=== PATIENT | female | born 1980 | race Caucasian/White ===

== ENCOUNTER → 2017-03-30 | Outpatient (CLI) | payer OTHER ==
[~2017-03-30] MED LIST: ALBUAER19 INH; CEPH500C PO; CLON0.5T3 PO; FLUO20CA35 PO; FLUO40CA8 PO; LEVE500T13 PO; LURA1TAB; ONDA8TAB13 SL; ONDA8TAB6 PO; PROM1SUP19 PR
== END | disposition home or self-care (01) ==
LOC: C.PAPS 14:55
PROVIDERS: ATTEND Internal Medicine
DX: Z34.81 Encounter for supervision of other normal pregnancy, first trimester (principal); R87.610 Atypical squamous cells of undetermined significance on cytologic smear of cervix (ASC-US)

== ENCOUNTER → 2017-03-30 | Outpatient (CLI) | payer OTHER ==
[2017-04-03 00:44] LABS: CHLAMYDIA TRACH RNA*** NOT DETECTED (NOT DETECTED); GC (NEIS GONORRHOEAE)RNA** NOT DETECTED (NOT DETECTED)
== END | disposition home or self-care (01) ==
LOC: C.LABSPEC 14:26
PROVIDERS: ATTEND Obstetrics & Gynecology
DX: Z34.81 Encounter for supervision of other normal pregnancy, first trimester (principal)

== ENCOUNTER → 2017-03-31 | Outpatient (CLI) | payer OTHER | END | disposition home or self-care (01) | LOC: C.LAB 16:14 | PROVIDERS: ATTEND Obstetrics & Gynecology | DX: O09.511 Supervision of elderly primigravida, first trimester (principal) ==

== ENCOUNTER 2017-05-14 17:30 | Emergency (ER) | payer OTHER ==
[~2017-05-14] VITALS: Ht 165.1 cm; Wt 92.4 kg
[~2017-05-14 17:30] MED LIST changes: -CEPH500C PO; -LURA1TAB; -ONDA8TAB13 SL; -ONDA8TAB6 PO; -PROM1SUP19 PR
[2017-05-14 17:34] VITALS: Ht 165.1 cm; Wt 92.4 kg
[2017-05-14] MEDS ORDERED: ONDANSETRON INJ 2 MG/ML 2 ML VIAL IV PRN (18:00)
[2017-05-14] MEDS ORDERED: SODIUM CHLORIDE 0.9% 1000ML 1,000 ML IV ONE ×3 (18:00→22:15)
--- NOTE | 2017-05-14 18:00 | EMERGENCY ROOM VISIT NOTE ---
History First contact with patient: 17:38 Chief Complaint: VOMITING Stated Complaint: 12 WEEKS ,VOMITTING Nursing Triage Summary: Pt is 12 weeks . Pt stated that over the last week she has been vomiting every time she eats. She is not able to keep even water down. Pt has also been constipated for the last 3 days. Pt denies any abdominal pain, fever , or diarrhea. Pt abdomen non tender and bowel sounds + all 4 quadrants. History of Present Illness The patient is a 36 year old female who presents to the Emergency Room with complaints of uncontrolled vomiting that has been ongoing throughout the duration of her . The patient is 12 weeks . She is . She has been receiving care. She had a normal 8 week ultrasound. The patient reports a 15 pound weight loss in the last 4 weeks. She is unable to keep even liquids down. She follows with Dr. Vogel. He prescribed Zofran for her, which does not seem to help. She ran out of her Zofran 2 days ago. She denies any significant abdominal pain. She does note that she has not had a bowel movement in 2 days. She denies any fever or chills. Review of Systems 10 system review performed and negative unless noted in HPI or below Past Medical/Surgical History Medical Problems: (1) Benign hypertension (2) Diabetes mellitus Family History Diabetes mellitus Hypertension Seizures Social History Smoking Status: Former Smoker Alcohol Use: occasionally Housing Status: lives with significant other Current/Historical Medications Scheduled Cephalexin Monohydrate (Keflex), 500 MG PO QID Fluoxetine (Prozac), 40 MG PO DAILY Fluoxetine (Prozac), 20 MG PO DAILY Ondansetron Odt (Zofran Odt), 8 MG SL Q8 Scheduled PRN Ondansetron Hcl (Zofran), 8 MG PO for Nausea Promethazine (Phenergan Suppository), 25 MG AR Q6H PRN for Nausea Miscellaneous Medications Lurasidone Hcl (Latuda) Physical Exam Vital Signs Date Time Temp Pulse Resp B/P (MAP) Pulse Ox O2 Delivery O2 Flow Rate FiO2 05/14/17 22:54 68 18 102/61 97 05/14/17 21:35 61 122/69 111/69 97/65 05/14/17 20:25 36.8 57 18 110/73 98 Room Air 05/14/17 18:54 63 18 108/68 100 Room Air 05/14/17 17:34 37.4 105 18 135/85 94 Room Air Physical Exam VITALS: Vitals are noted on the nurse's note and reviewed by myself. Vital signs stable. GENERAL: 36-year-old female, in moderate discomfort, SKIN: The skin was without rashes, erythema, edema, or bruising. HEAD: Normocephalic atraumatic. MOUTH: Mucous membranes slightly dry. NECK: No JVD. HEART: Regular rate and rhythm without murmurs gallops or rubs. LUNGS: Clear to auscultation bilaterally without wheezes, rales or rhonchi. No accessory muscle use. ABDOMEN: Bowel sounds present, but hypoactive. Soft, nontender, without organomegaly. No guarding or rebound tenderness. heart beat approximately 140 bpm MUSCULOSKELETAL: No muscle atrophy, erythema, or edema noted. Strength 5/5 throughout. NEURO: Patient was alert and oriented to person place and time. Normal sensation to touch. No focal neurological deficits. Medical Decision & Procedures Laboratory Results 05/14/17 18:06 Red Blood Count 4.41, Mean Corpuscular Volume 90.5, Mean Corpuscular Hemoglobin 32.9, Mean Corpuscular Hemoglobin Concent 36.3, Mean Platelet Volume 9.5, Neutrophils (%) (Auto) 71.7, Lymphocytes (%) (Auto) 22.2, Monocytes (%) (Auto) 4.9, Eosinophils (%) (Auto) 0.8, Basophils (%) (Auto) 0.1, Neutrophils # (Auto) 6.58, Lymphocytes # (Auto) 2.04, Monocytes # (Auto) 0.45, Eosinophils # (Auto) 0.07, Basophils # (Auto) 0.01 05/14/17 18:06 Test 05/14/17 18:06 05/14/17 19:37 White Blood Count 9.18 K/uL (4.8-10.8) Red Blood Count 4.41 M/uL (4.2-5.4) Hemoglobin 14.5 g/dL (12.0-16.0) Hematocrit 39.9 % (37-47) Mean Corpuscular Volume 90.5 fL (80-100) Mean Corpuscular Hemoglobin 32.9 pg (25-34) Mean Corpuscular Hemoglobin Concent 36.3 g/dl (32-36) Platelet Count 223 K/uL (130-400) Mean Platelet Volume 9.5 fL (7.4-10.4) Neutrophils (%) (Auto) 71.7 % Lymphocytes (%) (Auto) 22.2 % Monocytes (%) (Auto) 4.9 % Eosinophils (%) (Auto) 0.8 % Basophils (%) (Auto) 0.1 % Neutrophils # (Auto) 6.58 K/uL (1.4-6.5) Lymphocytes # (Auto) 2.04 K/uL (1.2-3.4) Monocytes # (Auto) 0.45 K/uL (0.11-0.59) Eosinophils # (Auto) 0.07 K/uL (0-0.5) Basophils # (Auto) 0.01 K/uL (0-0.2) RDW Standard Deviation 38.2 fL (36.4-46.3) RDW Coefficient of Variation 11.6 % (11.5-14.5) Immature Granulocyte % (Auto) 0.3 % Immature Granulocyte # (Auto) 0.03 K/uL (0.00-0.02) Anion Gap 6.0 mmol/L (3-11) Est Creatinine Clear Calc Drug Dose 155.8 ml/min Estimated GFR () 137.9 Estimated GFR (Non- 119.0 BUN/Creatinine Ratio 12.7 (10-20) Calcium Level 8.8 mg/dl (8.5-10.1) Magnesium Level 1.9 mg/dl (1.8-2.4) Total Bilirubin 0.3 mg/dl (0.2-1) Aspartate Amino Transf (AST/SGOT) 9 U/L (15-37) Alanine Aminotransferase (ALT/SGPT) 12 U/L (12-78) Alkaline Phosphatase 81 U/L (45-117) Total Protein 7.1 gm/dl (6.4-8.2) Albumin 3.4 gm/dl (3.4-5.0) Globulin 3.7 gm/dl (2.5-4.0) Albumin/Globulin Ratio 0.9 (0.9-2) Urine Color DK YELLOW Urine Appearance CLOUDY (CLEAR) Urine pH 6.0 (4.5-7.5) Urine Specific [place] 1.032 (1.000-1.030) Urine Protein 1+ (NEG) Urine Glucose (UA) TRACE (NEG) Urine Ketones 3+ (NEG) Urine Occult Blood NEG (NEG) Urine Nitrite NEG (NEG) Urine Bilirubin NEG (NEG) Urine Urobilinogen POS (NEG) Urine Leukocyte Esterase MODERATE (NEG) Urine WBC (Auto) >30 /hpf (0-5) Urine RBC (Auto) 5-10 /hpf (0-4) Urine Hyaline Casts (Auto) 5-10 /lpf (0-5) Urine Epithelial Cells (Auto) >30 /lpf (0-5) Urine Bacteria (Auto) NEG (NEG) Urine Pathogenic Casts /lpf (0) Medications Administered Medications (Trade) Dose Ordered Sig/Marcelino Route Start Time Stop Time Status Last Admin Dose Admin Sodium Chloride 1,000 ml @ 999 mls/hr Q1H1M ONCE IV 05/14/17 18:00 05/14/17 19:00 DC 05/14/17 18:14 999 MLS/HR Sodium Chloride 1,000 ml @ 999 mls/hr Q1H1M ONCE IV 05/14/17 18:00 05/14/17 19:00 DC 05/14/17 18:19 999 MLS/HR Ondansetron HCl (Zofran Inj) 4 mg Q2H PRN IV 05/14/17 18:00 05/14/17 23:41 DC 05/14/17 18:14 4 MG Ondansetron HCl (Zofran Inj) 4 mg NOW STAT IV 05/14/17 19:24 05/14/17 19:25 DC 05/14/17 19:33 4 MG Ceftriaxone Sodium (Rocephin Inj) 1 gm NOW STAT IV 05/14/17 20:25 05/14/17 20:27 DC 05/14/17 20:45 1 GM Promethazine HCl (Phenergan Supp) 25 mg ONE STAT AR 05/14/17 20:34 05/14/17 20:35 DC 05/14/17 20:45 25 MG Promethazine HCl (Phenergan Supp) 25 mg ONE STAT AR 05/14/17 21:59 05/14/17 22:00 DC 05/14/17 21:59 25 MG ED Course Patient was seen and examined Vital signs including blood pressure were reviewed medications list was verified with patient Labs were obtained, and a saline lock was established The patient was given Zofran 4 mg IV. She was hydrated with 2 L of normal saline. Upon reevaluation, the patient was still nauseated. She was given an additional dose of Zofran 4 mg IV. She did not have very good relief from this. The case was discussed with my supervising physician, and also Dr. Ho from OB. He suggested trying Phenergan suppositories. This was ordered. Upon reevaluation, the patient was feeling about the same. She was given macy roula and crackers. She was able to eat a pack a crackers. Orthostatic vital signs were checked and positive. She was hydrated with an additional liter of saline The orthostatic vital signs were repeated. They were improved. The patient was given a home pack of Phenergan suppositories and Zofran ODT She was comfortable being discharged home I reviewed discharge instructions the patient. They voiced understanding and had no further questions. Medical Decision Differential diagnosis: Hyperemesis gravidarum, SBO, pancreatitis, choledocholithiasis, viral GI illness This patient is a 36-year-old female that presents the emergency department with uncontrolled vomiting. She experienced similar symptoms with the first . I had a low suspicion of other etiologies such as SBO or infection. The patient had some symptomatic relief in the emergency department. She was still nauseated, however she was able to tolerate crackers. The case was discussed with the on-call OB physician, Dr. Ho. He suggested Phenergan suppositories and close follow-up. The patient was comfortable with this plan. She was initially orthostatic. She was given an additional liter of fluids, and this improved. She was discharged home with a home pack of antiemetics. She will call the OB doctor in the morning for follow-up. Of note, the patient also has a urinary tract infection. She does not have any signs of pyelonephritis. She was given 1 dose of Rocephin IV. She was given a prescription of Keflex. This chart was completed in part utilizing [employer] Voice Recognition software. Attempts were made to minimize the grammatical errors, random word insertions, pronoun errors and incomplete sentences. Any formal questions or concerns about the content, text or information contained within the body of this dictation should be directly addressed to the provider for clarification. Medication Reconcilliation Current Medication List: was personally reviewed by me Blood Pressure Screening Patient's blood pressure: Elevated blood pressure Blood pressure disposition: Elevated BP felt to be situational Impression Primary Impression: Hyperemesis gravidarum Additional Impression: UTI (urinary tract infection) Departure Information Dispostion Home / Self-Care Condition GOOD Prescriptions Ondansetron Odt (ZOFRAN ODT) 8 Mg Tab 8 MG SL Q8, #20 TAB Prov: Twila Willoughby PA-C 05/14/17 Cephalexin Monohydrate (Keflex) 500 Mg Cap 500 MG PO QID for 7 Days, #28 CAP Prov: Twila Willoughby PA-C 05/14/17 Promethazine (Phenergan Suppository) 25 Mg Supp 25 MG AR Q6H Y for Nausea, #20 SUPP Prov: Twila Willoughby PA-C 05/14/17 Referrals No Doctor, Assigned (PCP) Horacio Vogel M.D. Patient Instructions My [facility] Additional Instructions You were evaluated in the emergency department for vomiting. It also appears that you have a urinary tract infection. Please do Phenergan suppositories every 6 hours as needed for nausea. Please make sure that you take the capsule off of the suppository. Please finish the entire course of antibiotics. Please call your OB doctor in the morning for a follow-up appointment. If your symptoms worsen please return to the emergency department. Problem Qualifiers
[2017-05-14] MEDS ORDERED: LURA1TAB (18:12)
[2017-05-14] MEDS ORDERED: ONDA8TAB6 PO (18:12)
[2017-05-14 18:22] LABS: BASO % 0.1 %; BASO ABS # 0.01 K/uL (0-0.2); COMPLETE YES; EOS % 0.8 %; HEMATOCRIT 39.9 % (37-47); IG% 0.3 %; LYMPH % 22.2 %; LYMPH ABS # 2.04 K/uL (1.2-3.4); MEAN CELL VOLUME 90.5 fL (80-100); MEAN CORPUSCULAR HEMOGLOBIN 32.9 pg (25-34); MEAN CORPUSCULAR HGB CONC 36.3 g/dl (32-36); MEAN PLATELET VOLUME 9.5 fL (7.4-10.4); MONO % 4.9 %; NEUT % 71.7 %; PLATELET COUNT 223 K/uL (130-400); RED BLOOD COUNT 4.41 M/uL (4.2-5.4); WHITE BLOOD COUNT 9.18 K/uL (4.8-10.8)
[2017-05-14 18:33] LABS: BUN/CREATININE RATIO 12.7 (10-20); CALCIUM 8.8 mg/dl (8.5-10.1); CREATININE 0.55 mg/dl (0.60-1.20); MAGNESIUM 1.9 mg/dl (1.8-2.4); POTASSIUM 3.7 mmol/L (3.5-5.1)
[2017-05-14 18:36] LABS: ALB/GLOB RATIO 0.9 (0.9-2)
[2017-05-14] MEDS ORDERED: ONDANSETRON INJ 2 MG/ML 2 ML VIAL IV STA (19:24)
[2017-05-14 19:46] LABS: URINE APPEARANCE CLOUDY (CLEAR); URINE COLOR DK YELLOW; URINE EPITHELIAL CELL AUTO >30 /lpf (0-5); URINE NITRITE NEG (NEG); URINE SPECIFIC GRAVITY 1.032 (1.000-1.030); UROBILINOGEN POS (NEG)
[2017-05-14 19:54] LABS: MANUAL MICROSCOPIC REQUIRED? NO; REVIEW REQ? YES
[2017-05-14 19:55] LABS: URINE BILIRUBIN NEG (NEG)
[2017-05-14 20:25] VITALS: TEMP 36.8
[2017-05-14] MEDS ORDERED: CEFTRIAXONE SOD INJ 1 GM ADDVIAL IV STA (20:25)
[2017-05-14] MEDS ORDERED: PROMETHAZINE HCL 25 MG SUPP PR STA ×2 (20:34→21:59)
[2017-05-14] MEDS ORDERED: PROMETHAZINE HCL 25 MG SUPP PR ONE (21:59)
[2017-05-14] MEDS ORDERED: PROM1SUP19 PR (22:01)
[2017-05-14] MEDS ORDERED: CEPH500C PO (22:01)
[2017-05-14] MEDS ORDERED: ONDA8TAB13 SL (22:31)
[2017-05-14] MEDS ORDERED: ONDANSETRON HOME PACK 4MG OD TAB PO ONE (22:45)
[2017-05-14 22:54] VITALS: BP 102/61; PULSE 68; O2SAT 97
--- NOTE | 2017-05-14 22:54 | EMERGENCY ROOM VISIT NOTE ---
ED Visit Note First contact with patient: 17:38 The patient was seen and examined with Twila Willoughby PA-C. I agree with the history, physical and findings. Please see the note for disposition and details. The patient was hydrated. She was given Zofran and Phenergan. OB/ TRIMMING CASER was consulted and recommended Phenergan suppositories. Recommended close follow-up in the office. The patient will contact Dr. Vogel tomorrow. If she worsens in any way or cannot tolerate oral intake she will be back for reevaluation. I gave my usual and customary discussion regarding this issue.
== END 2017-05-14 22:57 | disposition home or self-care (01) ==
LOC: C.EDB 17:33 → C.EDC 22:57
DX: O21.0 Mild hyperemesis gravidarum (principal); O23.41 Unspecified infection of urinary tract in pregnancy, first trimester; O24.111 Pre-existing type 2 diabetes mellitus, in pregnancy, first trimester; E11.9 Type 2 diabetes mellitus without complications; O10.011 Pre-existing essential hypertension complicating pregnancy, first trimester; Z3A.12 12 weeks gestation of pregnancy; Z87.891 Personal history of nicotine dependence; Z83.3 Family history of diabetes mellitus; Z82.49 Family history of ischemic heart disease and other diseases of the circulatory system; Z82.0 Family history of epilepsy and other diseases of the nervous system

== ENCOUNTER → 2017-07-21 | Outpatient (CLI) | payer OTHER ==
[~2017-07-21] MED LIST changes: -ALBUAER19 INH; -CLON0.5T3 PO; -LEVE500T13 PO; +LURA1TAB; +ONDA8TAB6 PO; +PROM1SUP19 PR
[2017-07-21 10:15] LABS: HEMATOCRIT 36.1 % (37-47); MEAN CELL VOLUME 92.1 fL (80-100); MEAN CORPUSCULAR HEMOGLOBIN 32.1 pg (25-34); MEAN CORPUSCULAR HGB CONC 34.9 g/dl (32-36); MEAN PLATELET VOLUME 9.5 fL (7.4-10.4); PLATELET COUNT 201 K/uL (130-400); RED BLOOD COUNT 3.92 M/uL (4.2-5.4); WHITE BLOOD COUNT 7.56 K/uL (4.8-10.8)
[2017-07-21 11:20] LABS: GTGD 50 Grams
== END | disposition home or self-care (01) ==
LOC: C.LAB 08:22
PROVIDERS: ATTEND Obstetrics & Gynecology
DX: Z34.82 Encounter for supervision of other normal pregnancy, second trimester (principal)

== ENCOUNTER → 2017-08-03 | Outpatient (CLI) | payer OTHER | END | disposition home or self-care (01) | LOC: C.LAB 08:04 | PROVIDERS: ATTEND Obstetrics & Gynecology | DX: O99.810 Abnormal glucose complicating pregnancy (principal) ==

== ENCOUNTER 2017-09-12 18:11 | Emergency (ER) | payer OTHER ==
[~2017-09-12] VITALS: Ht 165.1 cm; Wt 101.8 kg
[2017-09-12 18:21] VITALS: TEMP 37.1; Ht 165.1 cm; Wt 101.8 kg
[2017-09-12] MEDS ORDERED: SODIUM CHLORIDE 0.9% 1000ML 2,000 ML IV STA (18:32)
[2017-09-12] MEDS ORDERED: ONDANSETRON INJ 2 MG/ML 2 ML VIAL IV STA (18:32)
[2017-09-12] MEDS ORDERED: ACETAMINOPHEN 500 MG TAB PO STA (18:37)
[2017-09-12 18:45] VITALS: O2SAT 100
--- NOTE | 2017-09-12 18:45 | EMERGENCY ROOM VISIT NOTE ---
History Report prepared by Marvin: Damir Caceres Under the Supervision of: Dr. Jeffrey Melgar M.D. First contact with patient: 18:31 Chief Complaint: FLU LIKE SX Stated Complaint: WEAKNESS,DEHYDRATION,VOMITING,HEADACHE History of Present Illness The patient is a 37 year old female who presents to the Emergency Room with complaints of worsening flu-like symptoms for the past 4 days. Patient has associated symptoms of a cough, chest pains, vomiting, sore throat, fever, and a headache. Patient adds that she has not eaten for the past 4 days since she cannot keep anything down. She describes the chest pain as "someone putting a 10 ,000 lb weight on her chest". She states her fever resolved yesterday. Patient denies having a flu shot this year. She denies being around anyone with the flu. Patient adds that she is 7 months . She states this is her 2nd . She adds that she has had no complications with the except for being in the ED a couple months ago for dehydration symptoms. Patient adds that during her 1st she "was sick the whole time". Patient denies any changes in bowel movements or urinary burning/frequency. Source of History: patient Onset: 4 days ago Position: other (Flu-like symptoms) Timing: worsening Associated Symptoms: + fevers, + headache, + sorethroat, + cough, + vomiting Note: Patient has chest pains. Review of Systems See HPI for pertinent positives & negatives. A total of 10 systems reviewed and were otherwise negative. Past Medical & Surgical Medical Problems: (1) Benign hypertension (2) Diabetes mellitus Family History Diabetes mellitus Hypertension Seizures Social History Smoking Status: Never Smoker Alcohol Use: occasionally Housing Status: lives with significant other Current/Historical Medications Scheduled Cephalexin Monohydrate (Keflex), 500 MG PO TID Ondasetron Odt (Zofran Odt), 4 MG SL Q6H Oseltamivir (Tamiflu), 75 MG PO BID Scheduled PRN Doxylamine-Pyridoxine (Diclegis), 1 TAB PO UD PRN for Nausea Allergies Coded Allergies: Latex1 -Allergic Contact Dermititis (Verified Allergy, Unknown, ., 05/14/17 ) Physical Exam Vital Signs Date Time Temp Pulse Resp B/P (MAP) Pulse Ox O2 Delivery O2 Flow Rate FiO2 09/12/17 21:25 80 18 132/78 99 Room Air 09/12/17 18:45 100 Room Air 09/12/17 18:21 37.1 89 18 111/74 97 Room Air Physical Exam GENERAL: Patient is in no acute distress. HEENT: No acute trauma, normocephalic atraumatic, mucous membranes moist, mild nasal congestion, no scleral icterus. No throat erythema or exudate NECK: No stridor, no adenopathy, no meningismus, trachea is midline. LUNGS: Clear to auscultation bilaterally, no wheeze, no rhonchi, breath sounds equal. HEART: Without murmurs gallops or rubs, regular rate and rhythm. ABDOMEN: Soft, nontender, bowel sounds positive, no hernias, no peritonitis, gravid uterus EXTREMITIES: No cyanosis or edema, full range of motion of all the joints without pain or difficulty, no signs for acute trauma. NEUROLOGIC: Oriented x 3, no acute motor or sensory deficits, no focal weakness. SKIN: No rash, no jaundice, no diaphoresis. Medical Decision & Procedures ER Provider Diagnostic Interpretation: Radiology results as stated below per my review and radiologist interpretation: CHEST ONE VIEW PORTABLE CLINICAL HISTORY: EVALUATE ALTERED MENTAL STATUS/WEAKNESS COMPARISON STUDY: 10/26/2015 FINDINGS: The bones soft tissues and hemidiaphragms are normal. The cardiomediastinal silhouette is normal. The lungs are clear. The pulmonary vasculature is normal. IMPRESSION: Negative chest. The above report was generated using voice recognition software. It may contain grammatical, syntax or spelling errors. Electronically signed by: Matthew Washington M.D. 09/12/2017 7:18 PM Laboratory Results 09/12/17 18:55 Red Blood Count 4.07, Mean Corpuscular Volume 93.1, Mean Corpuscular Hemoglobin 32.4, Mean Corpuscular Hemoglobin Concent 34.8, Mean Platelet Volume 9.4, Neutrophils (%) (Auto) 77.2, Lymphocytes (%) (Auto) 12.7, Monocytes (%) (Auto) 9.7, Eosinophils (%) (Auto) 0.0, Basophils (%) (Auto) 0.0, Neutrophils # (Auto) 4.40, Lymphocytes # (Auto) 0.72, Monocytes # (Auto) 0.55, Eosinophils # (Auto) 0.00, Basophils # (Auto) 0.00 09/12/17 18:55 Test 09/12/17 18:55 White Blood Count 5.69 K/uL (4.8-10.8) Red Blood Count 4.07 M/uL (4.2-5.4) Hemoglobin 13.2 g/dL (12.0-16.0) Hematocrit 37.9 % (37-47) Mean Corpuscular Volume 93.1 fL (80-100) Mean Corpuscular Hemoglobin 32.4 pg (25-34) Mean Corpuscular Hemoglobin Concent 34.8 g/dl (32-36) Platelet Count 160 K/uL (130-400) Mean Platelet Volume 9.4 fL (7.4-10.4) Neutrophils (%) (Auto) 77.2 % Lymphocytes (%) (Auto) 12.7 % Monocytes (%) (Auto) 9.7 % Eosinophils (%) (Auto) 0.0 % Basophils (%) (Auto) 0.0 % Neutrophils # (Auto) 4.40 K/uL (1.4-6.5) Lymphocytes # (Auto) 0.72 K/uL (1.2-3.4) Monocytes # (Auto) 0.55 K/uL (0.11-0.59) Eosinophils # (Auto) 0.00 K/uL (0-0.5) Basophils # (Auto) 0.00 K/uL (0-0.2) RDW Standard Deviation 42.7 fL (36.4-46.3) RDW Coefficient of Variation 12.6 % (11.5-14.5) Immature Granulocyte % (Auto) 0.4 % Immature Granulocyte # (Auto) 0.02 K/uL (0.00-0.02) Urine Color YELLOW Urine Appearance CLEAR (CLEAR) Urine pH 6.5 (4.5-7.5) Urine Specific [place] 1.025 (1.000-1.030) Urine Protein 1+ (NEG) Urine Glucose (UA) 2+ (NEG) Urine Ketones 2+ (NEG) Urine Occult Blood NEG (NEG) Urine Nitrite NEG (NEG) Urine Bilirubin NEG (NEG) Urine Urobilinogen NEG (NEG) Urine Leukocyte Esterase SMALL (NEG) Urine WBC (Auto) >30 /hpf (0-5) Urine RBC (Auto) 5-10 /hpf (0-4) Urine Hyaline Casts (Auto) 1-5 /lpf (0-5) Urine Epithelial Cells (Auto) 20-30 /lpf (0-5) Urine Bacteria (Auto) NEG (NEG) Anion Gap 7.0 mmol/L (3-11) Est Creatinine Clear Calc Drug Dose 165.4 ml/min Estimated GFR () 137.8 Estimated GFR (Non- 118.9 BUN/Creatinine Ratio 9.5 (10-20) Calcium Level 8.2 mg/dl (8.5-10.1) Total Bilirubin 0.1 mg/dl (0.2-1) Aspartate Amino Transf (AST/SGOT) 13 U/L (15-37) Alanine Aminotransferase (ALT/SGPT) 17 U/L (12-78) Alkaline Phosphatase 113 U/L (45-117) Troponin I < 0.015 ng/ml (0-0.045) Total Protein 6.7 gm/dl (6.4-8.2) Albumin 2.7 gm/dl (3.4-5.0) Globulin 4.0 gm/dl (2.5-4.0) Albumin/Globulin Ratio 0.7 (0.9-2) Influenza Type A Antigen POS for Influ A (NEG) Influenza Type B Antigen Neg for Influ B (NEG) Laboratory results reviewed by me. Medications Administered Medications (Trade) Dose Ordered Sig/Marcelino Route Start Time Stop Time Status Last Admin Dose Admin Sodium Chloride 2,000 ml @ 999 mls/hr Q2H1M STAT IV 09/12/17 18:32 09/12/17 20:32 DC 09/12/17 18:32 999 MLS/HR Ondansetron HCl (Zofran Inj) 4 mg NOW STAT IV 09/12/17 18:32 09/12/17 18:37 DC 09/12/17 18:55 4 MG Acetaminophen (Tylenol Tab) 1,000 mg NOW STAT PO 09/12/17 18:37 09/12/17 18:38 DC 09/12/17 18:56 1,000 MG Cephalexin Monohydrate (Keflex Cap) 500 mg NOW STAT PO 09/12/17 20:45 09/12/17 20:54 DC 09/12/17 21:07 500 MG Oseltamivir Phosphate (Tamiflu Cap) 75 mg NOW STAT PO 09/12/17 20:45 09/12/17 20:54 DC 09/12/17 21:07 75 MG ECG Indication: other (Flu-like symptoms) Rate (beats per minute): 97 Rhythm: normal sinus Findings: no acute ischemic change, no ectopy ED Course 1831: The patient was evaluated in room A4. A complete history and physical exam was performed. 1832: Zofran Inj 4mg IV, Sodium Chloride 2000 ml @ 999 mls/hr IV 1836: Tylenol Tab 1000mg PO 2044: Tamiflu Cap 75mg PO, Ondansetron HCl 1 homepack PO, Keflex Cap 500mg PO 2052: Reevaluated the patient. Discussed results and discharge instructions. She verbalized understanding and agreement. The patient is ready for discharge. Medical Decision Differential Diagnosis: Dehydration, UTI, electrolyte imbalance, anemia, flu-like illness, influenza There is no leukocytosis or concerning anemia. No significant electrolyte abnormality, kidney failure or hepatitis. Urinalysis is suggestive of infection , urine culture is pending. Chest film does not show pneumonia or CHF. Influenza testing was positive for influenza A. EKG showed a sinus rhythm, no acute ischemia. Cardiac enzyme testing times one was not consistent with acute cardiac injury. The patient presents with vomiting and some flulike symptoms. She is about 7 months . Patient received IV saline, IV Zofran, oral Tylenol. She was given oral Tamiflu. She received a dose of oral Keflex. The patient has influenza and a UTI. Both can be treated as an outpatient. Keflex for the UTI, Tamiflu for influenza. Hydration and rest were encouraged. I will prescribe some Zofran for nausea. If worsening, she can return. Medication Reconcilliation Current Medication List: was personally reviewed by me Blood Pressure Screening Patient's blood pressure: Normal blood pressure Blood pressure disposition: Did not require urgent referral Impression Primary Impression: Influenza A Additional Impressions: UTI (urinary tract infection) Scribe Attestation The scribe's documentation has been prepared under my direction and personally reviewed by me in its entirety. I confirm that the note above accurately reflects all work, treatment, procedures, and medical decision making performed by me. Departure Information Dispostion Home / Self-Care Prescriptions Ondasetron Odt (ZOFRAN ODT) 4 Mg Tab 4 MG SL Q6H for Nausea, #10 TAB Prov: Jeffrey Melgar M.D. 09/12/17 Oseltamivir (Tamiflu) 75 Mg Cap 75 MG PO BID, #10 CAP Prov: Jeffrey Melgar M.D. 09/12/17 Cephalexin Monohydrate (Keflex) 500 Mg Cap 500 MG PO TID for 7 Days, #21 CAP Prov: Jeffrey Melgar M.D. 09/12/17 Referrals Castro Renae M.D. (PCP) Forms HOME CARE DOCUMENTATION FORM, IMPORTANT VISIT INFORMATION Patient Instructions My [facility] Additional Instructions keflex 3x per day for 1 week for the urine zofran 1 tab as needed every 6 hours for nausea fluids rest bland diet---crackers, soup, toast, gatorade tamiflu 2x per day for 5 days return if worsening see lillie holcomb this week and general car yard supervisor as well Problem Qualifiers
[2017-09-12] MEDS ORDERED: DOXY30TA PO (19:08)
[2017-09-12 19:15] LABS: HEMATOCRIT 37.9 % (37-47); HEMOGLOBIN 13.2 g/dL (12.0-16.0); IG# 0.02 K/uL (0.00-0.02); LYMPH % 12.7 %; LYMPH ABS # 0.72 K/uL (1.2-3.4); MEAN CELL VOLUME 93.1 fL (80-100); MEAN CORPUSCULAR HEMOGLOBIN 32.4 pg (25-34); MEAN CORPUSCULAR HGB CONC 34.8 g/dl (32-36); MEAN PLATELET VOLUME 9.4 fL (7.4-10.4); MONO % 9.7 %; MONO ABS # 0.55 K/uL (0.11-0.59); NEUT % 77.2 %; PLATELET COUNT 160 K/uL (130-400); RED CELL DISTRIBUTION WIDTH CV 12.6 % (11.5-14.5); RED CELL DISTRIBUTION WIDTH SD 42.7 fL (36.4-46.3); WHITE BLOOD COUNT 5.69 K/uL (4.8-10.8)
--- NOTE | 2017-09-12 19:20 | DIAGNOSTIC IMAGING REPORT ---
CHEST ONE VIEW PORTABLE CLINICAL HISTORY: EVALUATE ALTERED MENTAL STATUS/WEAKNESS COMPARISON STUDY: 10/26/2015 FINDINGS: The bones soft tissues and hemidiaphragms are normal. The cardiomediastinal silhouette is normal. The lungs are clear. The pulmonary vasculature is normal. IMPRESSION: Negative chest. The above report was generated using voice recognition software. It may contain grammatical, syntax or spelling errors. Electronically signed by: Matthew Washington M.D. 09/12/2017 7:18 PM Dictated Date/Time: 09/12/2017 7:18 PM
[2017-09-12 19:35] LABS: ALBUMIN 2.7 gm/dl (3.4-5.0); ALT/SGPT 17 U/L (12-78); AST/SGOT 13 U/L (15-37); BLOOD UREA NITROGEN 5 mg/dl (7-18); CALCIUM 8.2 mg/dl (8.5-10.1); CARBON DIOXIDE 25 mmol/L (21-32); CREATININE 0.54 mg/dl (0.60-1.20); GLUCOSE 95 mg/dl (70-99); POTASSIUM 3.9 mmol/L (3.5-5.1); SODIUM 137 mmol/L (136-145)
[2017-09-12 19:39] LABS: ALKALINE PHOSPHATASE 113 U/L (45-117); TOTAL PROTEIN 6.7 gm/dl (6.4-8.2)
[2017-09-12 20:20] LABS: INFLUENZA B ANTIGEN Neg for Influ B (NEG)
[2017-09-12] MEDS ORDERED: CEPHALEXIN MONOHYDRATE 250 MG CAP PO STA (20:45)
[2017-09-12] MEDS ORDERED: OSELTAMIVIR PHOSPHATE 75 MG CAP PO STA (20:45)
[2017-09-12] MEDS ORDERED: ONDANSETRON HOME PACK 4MG OD TAB PO ONE (20:45)
[2017-09-12] MEDS ORDERED: OSEL75CA12 PO (21:15)
[2017-09-12] MEDS ORDERED: ONDA4TAB10 SL (21:15)
[2017-09-12] MEDS ORDERED: CEPH500C PO (21:15)
[2017-09-12 21:25] VITALS: BP 132/78; PULSE 80; O2SAT 99
== END 2017-09-12 21:30 | disposition home or self-care (01) ==
LOC: C.EDB 18:13 → C.EDA 21:30
DX: J11.1 Influenza due to unidentified influenza virus with other respiratory manifestations (principal); N39.0 Urinary tract infection, site not specified; Z33.1 Pregnant state, incidental; I10 Essential (primary) hypertension; E11.9 Type 2 diabetes mellitus without complications; Z82.49 Family history of ischemic heart disease and other diseases of the circulatory system; Z83.3 Family history of diabetes mellitus

== ENCOUNTER 2017-10-08 14:41 | Outpatient (CLI) | payer OTHER ==
--- NOTE | 2017-10-08 15:51 | HISTORY & PHYSICAL EXAMINATION ---
DATE OF ADMISSION: 10/08/2017 CHIEF COMPLAINT: Decreased movement, gestational diabetes, intrauterine 34 weeks gestation. HISTORY OF PRESENT ILLNESS: The patient is a 37-year-old 2, para 1. She has developed gestational diabetes during her present . She has been followed with a glucose monitor. Her due date is 11/19/2017. She was recently seen in the office with some elevation of blood pressure, spilling sugar, and complained of decreased movement. She was sent to ultrasound where she had a biophysical profile which was 04/07 and said she had a lot of discharge. She was sent to maternity for evaluation of discharge, it was AmniSure negative. On maternity, her pressures were within normal limits. PAST MEDICAL HISTORY: She has a 5-year-old girl in good health. She has got gestational diabetes. ALLERGIES: She has no known drug allergies. PAST SURGICAL HISTORY: No previous surgery. SOCIAL HISTORY: She smokes about a quarter pack a day. No alcohol intake. Works at home. FAMILY HISTORY: Mom has elevated blood pressure and cholesterol and is 59 years old. Dad 60, has diabetes and seizures. She has 2 brothers in good health. REVIEW OF SYSTEMS: HEAD: No symptoms of frequent or severe headaches. EYES: No symptoms of blurred vision, double vision. EARS: No symptoms of frequent ear infections, difficulty hearing. NOSE: No symptoms of frequent nosebleeds, difficulty breathing through her nose. THROAT: No symptoms of frequent or severe sore throats, difficulty swallowing. RESPIRATORY SYSTEM: No history of asthma, chest pain, shortness of breath. PHYSICAL EXAMINATION: GENERAL: Well developed, well-nourished 37-year-old white female, alert, oriented x3 and cooperative in no acute distress, appears stated age. EYES: Conjunctivae are pink. Sclerae white. No evidence of jaundice. EARS: Had normal light reflex bilaterally. MOUTH: Teeth are in a poor state of repair. HEART: Regular rhythm. S1, S2 are normal. LUNGS: Clear to auscultation and percussion. ABDOMEN: Soft and nontender. No contractions palpable. PELVIC: Cervix was closed, posterior, and firm. There was somewhat blood tinged vaginal discharge. MUSCULOSKELETAL: Revealed no calf tenderness. IMPRESSIONS OF THIS CASE: Intrauterine at 37 weeks gestation, gestational diabetes and mild elevation of blood pressure.
== END 2017-10-08 16:05 | disposition home or self-care (01) ==
LOC: C.OPB 14:41 → C.LD 14:41 → C.OPB 16:05
PROVIDERS: ATTEND Obstetrics & Gynecology
DX: O99.89 Other specified diseases and conditions complicating pregnancy, childbirth and the puerperium (principal); R03.0 Elevated blood-pressure reading, without diagnosis of hypertension; O09.523 Supervision of elderly multigravida, third trimester; O99.333 Smoking (tobacco) complicating pregnancy, third trimester; F17.200 Nicotine dependence, unspecified, uncomplicated; O24.419 Gestational diabetes mellitus in pregnancy, unspecified control; Z3A.37 37 weeks gestation of pregnancy; Z83.3 Family history of diabetes mellitus

== ENCOUNTER → 2017-10-08 | Outpatient (CLI) | payer OTHER ==
[~2017-10-08] MED LIST changes: +DOXY30TA PO; -FLUO20CA35 PO; -FLUO40CA8 PO; -LURA1TAB; +ONDA4TAB10 SL; -ONDA8TAB6 PO; +OSEL75CA12 PO; -PROM1SUP19 PR
--- NOTE | 2017-10-08 14:18 | DIAGNOSTIC IMAGING REPORT ---
ULTRASOUND BIO PROF W/O NST-SINGLE CLINICAL HISTORY: THIRD TRIMESTER W/TOXEMIA COMPARISON STUDY: No previous studies for comparison. FINDINGS: A single live fetus in cephalic presentation was identified. The heart rate is 153. The placenta was anterior. The fetus received 2 points for flexion, tone, breathing, and movement. This yields a biophysical profile score of 8 out of 8. IMPRESSION: biophysical profile score of 8 out of 8 Electronically signed by: Jorge Luis Martinez M.D. 10/08/2017 2:17 PM Dictated Date/Time: 10/08/2017 2:15 PM
[2017-10-08 15:56] LABS: ALBUMIN 2.3 gm/dl (3.4-5.0); ALKALINE PHOSPHATASE 134 U/L (45-117); ALT/SGPT 16 U/L (12-78); AST/SGOT 11 U/L (15-37); TOTAL PROTEIN 6.5 gm/dl (6.4-8.2)
== END | disposition home or self-care (01) ==
LOC: C.ULTR 13:15
PROVIDERS: ATTEND Obstetrics & Gynecology
DX: O14.93 Unspecified pre-eclampsia, third trimester (principal); Z3A.00 Weeks of gestation of pregnancy not specified

== ENCOUNTER → 2017-10-15 | Outpatient (CLI) | payer OTHER ==
[~2017-10-15] MED LIST changes: +PRENTAB26 PO
== END | disposition home or self-care (01) ==
LOC: C.LABSPEC 15:03
PROVIDERS: ATTEND Obstetrics & Gynecology
DX: O09.513 Supervision of elderly primigravida, third trimester (principal); Z3A.00 Weeks of gestation of pregnancy not specified

== ENCOUNTER 2017-10-20 22:28 | Inpatient (IN) | payer OTHER ==
[~2017-10-20] VITALS: Ht 165.1 cm; Wt 102.5 kg
[~2017-10-20 22:28] MED LIST changes: -PRENTAB26 PO
[2017-10-20] MEDS ORDERED: NURSING VERBAL MED ORDER ONE (23:15)
[2017-10-20] MEDS ORDERED: LACTATED RINGER'S 1000ML 1,000 ML IV ONE ×2 (23:30→23:45)
[2017-10-21] MEDS ORDERED: IV FLUIDS COMPLETED PRN (00:15)
[2017-10-21] MEDS: LACTATED RINGER'S 1000ML 1,000 ML IV SCH ×5 (02:51→20:48)
--- NOTE | 2017-10-21 07:21 | DIAGNOSTIC IMAGING REPORT ---
Study: biophysical profile HISTORY: complication FINDINGS: biophysical profile is 8 out of a possible 8. Fetus is cephalic in presentation. Placenta is placenta is anterior. heart rate is 145 bpm. Amniotic fluid index is 9 cm IMPRESSION: biophysical profile is 8 out of a possible 8. Cephalic presentation. note is made of bilateral scrotal hydroceles. Electronically signed by: Matthew Washington M.D. 10/21/2017 7:20 AM Dictated Date/Time: 10/21/2017 7:17 AM
--- NOTE | 2017-10-21 08:00 | HISTORY & PHYSICAL EXAMINATION ---
DATE OF ADMISSION: 10/21/2017 CHIEF COMPLAINT: Variable decelerations, contractions. HISTORY OF PRESENT ILLNESS: The patient is a 37-year-old 2, para 1. Her present is complicated by gestational diabetes which is diet controlled and she does monitor blood sugars. Her due date is 11/19/2017 and she did have some Celestone shots at about 30 weeks gestation for threatened premature labor. Her obstetrical history is as follows: She had a girl in 2011, 6 pounds 11 ounces, spontaneous vaginal delivery. She was in labor for about 2-1/2 days. She pushed for an hour, 38 weeks gestational fetus. Her present admission was caused by abdominal pain and discomfort with contractions coming every 5-6 minutes. She was brought in, placed on a monitor and initially the monitor tracing looked good. She had a reactive NST. Then during the night despite having being rehydrated, she started to have some variable decelerations and at times she had decelerations associated with contractions. This pattern went from looking bad to looking not so bad. She did have a biophysical profile which showed adequate fluid movement and tone. She is presently being admitted for rehydration and continuing monitoring heart rate. PAST MEDICAL HISTORY: She has girl 5 years old. No history of rheumatic fever, heart disease, heart murmur, diabetes, tuberculosis. ALLERGIES: No known drug allergies. PAST SURGICAL HISTORY: No previous surgery. SOCIAL HISTORY: No smoking. No alcohol intake. She is [id number] mom. FAMILY HISTORY: Mom is 59, had basal cell cancer. Her dad is 60, has seizures, diabetes, depression. She has 2 brothers in good health. REVIEW OF SYSTEMS: HEAD: No symptoms of frequent or severe headaches. EYES: No symptoms of blurred vision, double vision. PHYSICAL EXAMINATION: GENERAL: Well developed, well-nourished 37-year-old female, alert, oriented x3 in moderate amount of pain. EYES: Conjunctivae are pink. Sclerae white. She had pore teeth with lot of missing teeth and roots of the teeth still in place. HEART: Had a regular rhythm. S1 and S2 are normal. BREAST: Normal. ABDOMEN: Consistent with a 36-week fetus. There was no CVA tenderness. Contractions were palpable. PELVIC: Revealed a small amount of bloody show. Cervix was about 1-1.5 cm dilated, vertex presentation, -3 station and about a 50% effacement. MUSCULOSKELETAL: Revealed no calf tenderness. IMPRESSIONS OF THIS CASE: Variable decelerations, intrauterine 35 weeks 6 day gestation, gestational diabetes and possible early labor.
[2017-10-21] MEDS ORDERED: NURSING VERBAL MED ORDER ONE (22:30)
[2017-10-21] MEDS ORDERED: ACETAMINOPHEN 325 MG TAB PO PRN (22:30)
[2017-10-22] VITALS (16 sets, daily range): BP systolic 127–143; BP diastolic 80–89; PULSE 57–74; TEMP 36.4–36.8; O2SAT 98–100; Ht 165.1 cm; Wt 102.5 kg
[2017-10-22] MEDS ORDERED: CITRIC ACID/SODIUM CITRATE 15 ML UDC PO ONE ×2 (04:45→06:15)
[2017-10-22 05:05] LABS: BASO % 0.1 %; BASO ABS # 0.01 K/uL (0-0.2); EOS % 0.8 %; EOS ABS # 0.06 K/uL (0-0.5); HEMATOCRIT 36.5 % (37-47); HEMOGLOBIN 12.3 g/dL (12.0-16.0); IG# 0.01 K/uL (0.00-0.02); LYMPH % 35.5 %; LYMPH ABS # 2.79 K/uL (1.2-3.4); MEAN CELL VOLUME 90.6 fL (80-100); MEAN CORPUSCULAR HEMOGLOBIN 30.5 pg (25-34); MEAN CORPUSCULAR HGB CONC 33.7 g/dl (32-36); MEAN PLATELET VOLUME 10.3 fL (7.4-10.4); MONO % 8.5 %; MONO ABS # 0.67 K/uL (0.11-0.59); NEUT ABS # 4.33 K/uL (1.4-6.5); PLATELET COUNT 196 K/uL (130-400); RED CELL DISTRIBUTION WIDTH SD 42.8 fL (36.4-46.3); WHITE BLOOD COUNT 7.87 K/uL (4.8-10.8)
[2017-10-22] MEDS ORDERED: FENTANYL CITRATE INJ 50 MCG/1 ML 2 ML VIAL ONE (05:31)
[2017-10-22] MEDS ORDERED: MoRPHine SULFATE PF 1 MG/ML 10 ML AMP/VIAL ONE (05:31)
[2017-10-22] MEDS ORDERED: OXYTOCIN INJ 10 UNITS/ML VIAL ONE ×2 (05:40)
[2017-10-22] MEDS ORDERED: PRENTAB26 PO (05:49)
[2017-10-22] MEDS ORDERED: LACTATED RINGER'S 1000ML 1,000 ML IV ONE (06:04)
[2017-10-22] MEDS ORDERED: CEFOXITIN IV 2,000 MG in DEXTROSE 5% 50ML 50 ML IV ONE (06:15)
[2017-10-22] MEDS ORDERED: NURSING VERBAL MED ORDER ONE (06:15)
[2017-10-22] MEDS ORDERED: LACTATED RINGER'S 1000ML 1,000 ML IV SCH (07:05)
[2017-10-22] MEDS ORDERED: NALOXONE HCL INJ 0.08 MG in SYRINGE 1.8 ML IV PRN (07:13)
[2017-10-22] MEDS ORDERED: LACTATED RINGER'S 1000ML 500 ML IV PRN (07:13)
[2017-10-22] MEDS ORDERED: NALOXONE HCL INJ 1 MG in SODIUM CHLORIDE 0.9% 1000ML 1,000 ML IV PRN ×4 (07:13)
[2017-10-22] MEDS ORDERED: SODIUM CHLORIDE 0.9% 1000ML 1,000 ML IV PRN (07:13)
[2017-10-22] MEDS ORDERED: PROMETHAZINE HCL INJ 25 MG in SODIUM CHLORIDE 0.9% 50ML 50 ML IV PRN (07:15)
[2017-10-22] MEDS ORDERED: EpHEDrine SULFATE INJ 50 MG/ML AMP IV PRN ×2 (07:15)
[2017-10-22] MEDS ORDERED: DiphenhydrAMINE HCL 50 MG/ML VIAL IV PRN (07:15)
[2017-10-22] MEDS ORDERED: NO NARCOTICS OR SEDATIVES SCH (07:15)
[2017-10-22] MEDS ORDERED: PHENYLEPHRINE 100MCG/ML 5ML SYR IV PRN (07:15)
[2017-10-22] MEDS ORDERED: FENTANYL CITRATE INJ 50 MCG/1 ML 2 ML VIAL IV PRN (07:15)
[2017-10-22] MEDS ORDERED: ONDANSETRON INJ 2 MG/ML 2 ML VIAL IV PRN ×2 (07:15)
[2017-10-22] MEDS ORDERED: PROMETHAZINE HCL INJ 12.5 MG in SODIUM CHLORIDE 0.9% 50ML 50 ML IV PRN (07:15)
[2017-10-22] MEDS ORDERED: MoRPHine SULFATE PF 1 MG/ML 10 ML AMP/VIAL EPI PRN (07:15)
[2017-10-22] MEDS ORDERED: NALOXONE HCL 0.4 MG/1 ML VIAL/CARP IV PRN (07:15)
[2017-10-22] MEDS ORDERED: NALBUPHINE HCL INJ 10 MG/ML AMP IV PRN (07:15)
[2017-10-22] MEDS ORDERED: MEPERIDINE HCL 25 MG/ML CARP IV PRN (07:15)
[2017-10-22] MEDS ORDERED: ACETAMINOPHEN 1000 MG/100 ML IV IV ONE ×2 (07:15→09:23)
[2017-10-22] MEDS ORDERED: MoRPHine SULFATE 2 MG/ML CARP IV PRN (07:15)
[2017-10-22] MEDS ORDERED: ATROPINE SULFATE 0.1 MG/ML 5ML SYR IV PRN (07:15)
[2017-10-22] MEDS ORDERED: METOCLOPRAMIDE HCL INJ 20 MG in SODIUM CHLORIDE 0.9% 50ML 50 ML IV PRN (07:15)
[2017-10-22] MEDS ORDERED: PHENYLEPHRINE 100MCG/ML 5ML SYR ONE (07:19)
[2017-10-22] MEDS ORDERED: BENZOCAINE 20% AER SPR 82.5 GM CAN EXT PRN (07:45)
[2017-10-22] MEDS ORDERED: LANOLIN OINT EXT PRN (07:45)
[2017-10-22] MEDS ORDERED: HYDROCORTISONE ACETATE 25 MG SUPP PR PRN (07:45)
[2017-10-22] MEDS ORDERED: SENNA 8.6 MG TAB PO PRN (07:45)
[2017-10-22] MEDS ORDERED: SUPERCREAM 0.870 % 15GM JAR EXT PRN (07:45)
[2017-10-22] MEDS ORDERED: DIPHTHERIA/TETANUS/PERTUSSIS 0.5 ML SYR/VIAL IM. ONE (07:45)
[2017-10-22] MEDS ORDERED: MAGNESIUM HYDROXIDE SUSP 30 ML UDC PO PRN (07:45)
--- NOTE | 2017-10-22 08:01 | Anesthesiology Progress Note ---
Anesthesia Post Op Note Date & Time Oct 22, 2017 at 08:01 Vital Signs Pain Intensity: 1 Notes Mental Status: alert / awake / arousable, participated in evaluation Pt Amnestic to Procedure: Yes Nausea / Vomiting: adequately controlled Pain: adequately controlled Airway Patency, RR, SpO2: stable & adequate BP & HR: stable & adequate Hydration State: stable & adequate Neuraxial Anesthesia: was administered, sensory block is resolving Anesthetic Complications: no major complications apparent
--- NOTE | 2017-10-22 08:09 | OPERATIVE REPORT ---
DATE OF OPERATION: 10/22/2017 PROCEDURE: Primary low segment section along with bilateral tubal ligation. INDICATIONS FOR SURGERY: Nonreassuring heart rate tracing, several prolonged decelerations, recurrent type 2 decelerations. PREOPERATIVE DIAGNOSES: Nonreassuring heart rate tracing, gestational diabetes, intrauterine 36 weeks gestation. SURGEON: Dr. Vogel. LAVATORY ATTENDANT: Dr. Neumann. ESTIMATED BLOOD LOSS: 600 mL ANESTHESIA: Spinal. OPERATIVE FINDINGS AND PROCEDURE: The patient was brought to the OR table, correctly identified by armband and conversation. Spinal anesthesia was administered. Catheter placed in the bladder. Compression stockings were applied. Lower abdomen was painted with an alcohol-based sterilizing solution, draped in usual sterile fashion. The level of anesthesia was checked and found to be adequate. Then, a Pfannenstiel incision was made. Electrocautery was used to create good hemostasis. Incision was carried down to the fascia. Fascia was incised transversely, from the underlying muscle by blunt and sharp dissection. Recti muscles were in the midline. Peritoneum was carefully raised and entered. A bladder blade was placed in incision to expose the lower uterine segment. Head was palpated and then an incision was made above the vesicouterine fold. Bladder was undermined bluntly, pushed out of the operative field. Lower uterine segment was scored with a knife and entered with scissors. Clear amniotic fluid was seen at this time. A vectis retractor was placed on the head. With fundal pressure, the head was delivered through the incision. was then suctioned through the mouth and the nose. Following this, cord was clamped and cut, and the infant was attended to by the stacker driver who was scrubbed and present at the time of delivery. Cord blood was sent for gases, some cord blood was taken, and then placenta was removed manually. Uterus, tubes and ovaries were brought out through the incision. The uterine cavity was washed clean with a clean sponge. The edges of the myometrial defect were grasped with ring forceps. Continuous interlocking suture of chromic catgut was used to approximate the myometrial level. Then, a second fascial level was approximated over this with continuous interlocking suture of heavy Vicryl. Then, about 3 [id number] sutures of Vicryl were used to finish the hemostasis and further approximate the myometrial edges. With hemostasis good, the peritoneum was restored with continuous 3-0 chromic. Pelvis was cleansed of all blood clots and debris. Bilateral tubal ligation was now performed by tying off the fallopian tubes proximally and distally, infiltrating the area between the 2 ties with local with epinephrine, 2 leaves of the broad ligament and excising the section of tube. This was done for both the right and left side and then the proximal stumps of the tube were buried in the broad ligament and the distal stump was exteriorized. This was done for both the right and left fallopian tubes. Specimens were sent. Following this, uterus, tubes and ovaries were reinserted into the abdominal cavity. The suture line was checked and found to be hemostatic. Careful anatomical approximation of the anterior abdominal wall was performed. Peritoneum was closed with a mattress suture of chromic catgut. Recti muscles were approximated with interrupted [id number] suture of chromic catgut. Fascia was closed with continuous interlocking suture of Vicryl on each side, tied in the midline. Subcu was approximated with running plain and skin edges were approximated with staple clips. The patient tolerated the procedure well and left the OR in good condition. I attest to the content of the Intraoperative Record and any orders documented therein. Any exception s are noted below.
[2017-10-22] MEDS: SIMETHICONE 80 MG CHEW PO SCH ×4 (09:00→19:55)
[2017-10-22] MEDS: OXYTOCIN INJ 20 UNITS in LACTATED RINGER'S 1000ML 1,000 ML IV SCH ×2 (09:04→17:48)
[2017-10-22] MEDS: KETOROLAC TROMETHAMINE 30 MG/ML VIAL IV. PRN ×2 (11:34→19:50)
[2017-10-22] MEDS: FERROUS SULFATE 325 MG TAB PO SCH (11:45)
[2017-10-22] MEDS: PRENATAL VITAMIN TAB PO SCH (11:45)
[2017-10-22] MEDS: DOCUSATE SODIUM 100 MG CAP PO SCH ×2 (11:45→19:55)
[2017-10-23] VITALS: O2SAT 97
[2017-10-23] MEDS ORDERED: KETOROLAC TROMETHAMINE 30 MG/ML VIAL IV. PRN (00:25)
[2017-10-23] MEDS ORDERED: DC INTRASPINAL MORPHINE ONE (00:25)
[2017-10-23] MEDS ORDERED: MEPERIDINE HCL 50 MG/ML CARP IV PRN ×2 (00:25)
[2017-10-23] MEDS ORDERED: ZOLPIDEM TARTRATE 5 MG TAB PO PRN (00:25)
[2017-10-23] MEDS ORDERED: ONDANSETRON INJ 2 MG/ML 2 ML VIAL IV PRN (00:25)
[2017-10-23] MEDS ORDERED: DiphenhydrAMINE HCL 50 MG/ML VIAL IV PRN (00:25)
[2017-10-23] MEDS ORDERED: OXYCODONE/ACETAMINOPHEN 5-325 TAB PO PRN (00:25)
[2017-10-23 00:40] VITALS: BP 131/83; PULSE 80; TEMP 36.7; O2SAT 96
[2017-10-23] MEDS: OXYTOCIN INJ 20 UNITS in LACTATED RINGER'S 1000ML 1,000 ML IV SCH (01:54)
[2017-10-23 03:40] VITALS: BP 144/89; PULSE 69; TEMP 36.7; O2SAT 98
[2017-10-23] MEDS ORDERED: CEFOXITIN IV 2,000 MG in DEXTROSE 5% 50ML 50 ML IV SCH (06:00)
[2017-10-23] MEDS: IBUPROFEN 600 MG TAB PO PRN ×4 (06:49→20:18)
[2017-10-23] MEDS: OXYCODONE/ACETAMINOPHEN 5-325 TAB PO PRN ×4 (06:50→20:17)
[2017-10-23 07:00] LABS: BASO % 0.1 %; BASO ABS # 0.01 K/uL (0-0.2); EOS % 0.9 %; HEMATOCRIT 31.1 % (37-47); HEMOGLOBIN 10.8 g/dL (12.0-16.0); IG# 0.04 K/uL (0.00-0.02); LYMPH % 16.7 %; LYMPH ABS # 1.91 K/uL (1.2-3.4); MEAN CELL VOLUME 89.1 fL (80-100); MEAN CORPUSCULAR HEMOGLOBIN 30.9 pg (25-34); MEAN CORPUSCULAR HGB CONC 34.7 g/dl (32-36); MEAN PLATELET VOLUME 9.5 fL (7.4-10.4); MONO % 7.8 %; MONO ABS # 0.89 K/uL (0.11-0.59); NEUT % 74.1 %; NEUT ABS # 8.47 K/uL (1.4-6.5); PLATELET COUNT 157 K/uL (130-400); RED CELL DISTRIBUTION WIDTH CV 13.1 % (11.5-14.5); RED CELL DISTRIBUTION WIDTH SD 41.7 fL (36.4-46.3); WHITE BLOOD COUNT 11.42 K/uL (4.8-10.8)
--- NOTE | 2017-10-23 07:09 | Progress Note ---
Subjective Oct 23, 2017. Subjective conversation w/ patient Ambulation: ambulating normally Voiding: no voiding problems Passing Gas: Yes Diet Tolerance: Regular Diet Lochia: Small Review of Systems Constitutional: + fever Objective Vital Signs Date Time Temp Pulse Resp B/P (MAP) Pulse Ox O2 Delivery O2 Flow Rate FiO2 10/23/17 03:40 36.7 69 18 144/89 (107) 98 Room Air 10/23/17 00:40 36.7 80 18 131/83 (99) 96 Room Air 10/23/17 00:40 96 Room Air 10/23/17 00:00 18 97 10/22/17 23:00 18 98 10/22/17 22:00 20 98 10/22/17 21:00 20 98 10/22/17 20:00 20 100 10/22/17 20:00 36.8 74 20 127/84 (98) 100 Room Air 10/22/17 19:00 18 98 10/22/17 18:16 16 100 10/22/17 18:15 74 137/89 (105) 10/22/17 16:30 16 100 10/22/17 15:30 16 100 10/22/17 15:30 36.5 58 16 143/85 (104) 100 Room Air 10/22/17 15:30 100 Room Air 10/22/17 15:00 16 100 10/22/17 14:01 20 100 10/22/17 13:01 16 100 10/22/17 12:08 36.4 58 14 131/80 (97) 100 Room Air 10/22/17 12:00 14 99 10/22/17 11:15 100 Room Air 10/22/17 11:15 36.4 57 16 131/80 (97) 100 Room Air 10/22/17 11:15 100 Room Air 10/22/17 11:00 100 Room Air 10/22/17 11:00 16 100 Physical Exam General Appearance: WELL-APPEARING Respiratory/Chest: lungs clear Abdomen: normal bowel sounds, non tender Fundus: Firm, Non-Tender Incision Description: Clean, Dry & Intact Extremities: no pedal edema, no calf tenderness Laboratory Results Last 24 Hours Test 10/23/17 06:26 White Blood Count 11.42 K/uL Red Blood Count 3.49 M/uL Hemoglobin 10.8 g/dL Hematocrit 31.1 % Mean Corpuscular Volume 89.1 fL Mean Corpuscular Hemoglobin 30.9 pg Mean Corpuscular Hemoglobin Concent 34.7 g/dl Platelet Count 157 K/uL Mean Platelet Volume 9.5 fL Neutrophils (%) (Auto) 74.1 % Lymphocytes (%) (Auto) 16.7 % Monocytes (%) (Auto) 7.8 % Eosinophils (%) (Auto) 0.9 % Basophils (%) (Auto) 0.1 % Neutrophils # (Auto) 8.47 K/uL Lymphocytes # (Auto) 1.91 K/uL Monocytes # (Auto) 0.89 K/uL Eosinophils # (Auto) 0.10 K/uL Basophils # (Auto) 0.01 K/uL RDW Standard Deviation 41.7 fL RDW Coefficient of Variation 13.1 % Immature Granulocyte % (Auto) 0.4 % Immature Granulocyte # (Auto) 0.04 K/uL Assessment and Plan Problem List Medical Problems: (1) Hyperemesis gravidarum Status: Acute (2) Influenza A Status: Acute (3) Status: Acute Post-Op Day#: 1 Continue Routine Care: bandage removed
--- NOTE | 2017-10-23 08:59 | DIAGNOSTIC IMAGING REPORT ---
ULTRASOUND BILATERAL LOWER EXTREMITY VENOUS CLINICAL HISTORY: Clinical concern for deep venous thrombosis. COMPARISON STUDY: No priors. TECHNIQUE: Real-time, grayscale, and color Doppler sonography of the deep veins of the right and left lower extremity was performed from the inguinal crease to the calf. Compression and augmentation were utilized. FINDINGS: There is no sonographic evidence of deep venous thrombosis identified in the right or left lower extremity. The common femoral, superficial femoral, and popliteal veins are patent and normally compressible bilaterally. The greater saphenous vein and the profunda femoris vein at the junction with the common femoral vein are clear in both legs. The visualized calf veins are patent bilaterally. IMPRESSION: There is no sonographic evidence of deep venous thrombosis identified in the right or left lower extremity. Electronically signed by: Jeffrey Sanford M.D. 10/23/2017 8:58 AM Dictated Date/Time: 10/23/2017 8:58 AM
[2017-10-23 09:00] VITALS: BP 124/89; PULSE 71; TEMP 36.7; O2SAT 97
[2017-10-23] MEDS: SIMETHICONE 80 MG CHEW PO SCH ×4 (09:21→20:11)
[2017-10-23] MEDS: PRENATAL VITAMIN TAB PO SCH (09:21)
[2017-10-23] MEDS: FERROUS SULFATE 325 MG TAB PO SCH (09:21)
[2017-10-23] MEDS: DOCUSATE SODIUM 100 MG CAP PO SCH ×2 (09:21→20:11)
[2017-10-23 15:45] VITALS: BP 116/64; PULSE 78; O2SAT 98
[2017-10-23 16:30] VITALS: TEMP 36.2
[2017-10-23] MEDS ORDERED: BISACODYL 5 MG TABEC PO ONE (22:00)
[2017-10-24 00:30] VITALS: BP 122/80; PULSE 72; TEMP 36.4; O2SAT 99
[2017-10-24] MEDS: IBUPROFEN 600 MG TAB PO PRN ×5 (00:30→18:25)
[2017-10-24] MEDS: OXYCODONE/ACETAMINOPHEN 5-325 TAB PO PRN ×5 (00:32→18:25)
[2017-10-24] MEDS ORDERED: BISACODYL 10 MG SUPP PR PRN (07:45)
[2017-10-24 08:30] VITALS: BP 126/91; PULSE 97; TEMP 36.7; O2SAT 99
[2017-10-24] MEDS: SIMETHICONE 80 MG CHEW PO SCH ×4 (08:46→20:25)
[2017-10-24] MEDS: DOCUSATE SODIUM 100 MG CAP PO SCH ×2 (08:46→20:25)
[2017-10-24] MEDS: PRENATAL VITAMIN TAB PO SCH (08:46)
[2017-10-24] MEDS: FERROUS SULFATE 325 MG TAB PO SCH (08:46)
--- NOTE | 2017-10-24 09:05 | Progress Note ---
Subjective Oct 24, 2017. Subjective conversation w/ patient Ambulation: ambulating normally Voiding: no voiding problems Passing Gas: Yes Diet Tolerance: Regular Diet Lochia: Small Review of Systems Constitutional: + fever Objective Vital Signs Date Time Temp Pulse Resp B/P (MAP) Pulse Ox O2 Delivery O2 Flow Rate FiO2 10/24/17 00:30 36.4 72 18 122/80 (94) 99 Room Air 10/24/17 00:30 99 Room Air 10/23/17 16:30 36.2 10/23/17 15:45 98 Room Air 10/23/17 15:45 78 20 116/64 (81) 98 Room Air Physical Exam General Appearance: WELL-APPEARING Respiratory/Chest: chest non-tender Abdomen: normal bowel sounds, non tender Fundus: Firm, Non-Tender Incision Description: Clean, Dry & Intact Extremities: no pedal edema, no calf tenderness Assessment and Plan Problem List Medical Problems: (1) Hyperemesis gravidarum Status: Acute (2) Influenza A Status: Acute (3) Status: Acute Post-Op Day#: 2 Continue Routine Care: moderate ankle swelling
[2017-10-24 15:50] VITALS: BP 121/82; PULSE 85; TEMP 37; O2SAT 99
[2017-10-25] VITALS: BP 122/86; PULSE 91; TEMP 36.4; O2SAT 99
[2017-10-25] MEDS: OXYCODONE/ACETAMINOPHEN 5-325 TAB PO PRN ×2 (00:15→06:20)
[2017-10-25] MEDS: IBUPROFEN 600 MG TAB PO PRN ×2 (00:15→06:20)
--- NOTE | 2017-10-25 07:42 | Progress Note ---
Subjective Oct 25, 2017. Subjective conversation w/ patient Ambulation: ambulating normally Voiding: no voiding problems Passing Gas: Yes Diet Tolerance: Regular Diet Lochia: Small Review of Systems Constitutional: + fever Objective Vital Signs Date Time Temp Pulse Resp B/P (MAP) Pulse Ox O2 Delivery O2 Flow Rate FiO2 10/25/17 00:00 36.4 91 20 122/86 (98) 99 Room Air 10/25/17 00:00 99 Room Air 10/24/17 15:50 99 Room Air 10/24/17 15:50 37.0 85 18 121/82 (95) 99 Room Air 10/24/17 08:30 36.7 97 18 126/91 (103) 99 Room Air 10/24/17 08:30 Room Air Physical Exam General Appearance: WELL-APPEARING Respiratory/Chest: lungs clear Abdomen: normal bowel sounds, non tender Fundus: Firm, Non-Tender Incision Description: Clean, Dry & Intact Extremities: no pedal edema, no calf tenderness Assessment and Plan Problem List Medical Problems: (1) Hyperemesis gravidarum Status: Acute (2) Influenza A Status: Acute (3) Status: Acute Post-Op Day#: 3
--- NOTE | 2017-10-25 07:46 | Discharge Instructions ---
Discharge Instructions Date of Service Oct 25, 2017. Admission Reason for Admission: Check Labor Discharge Discharge Diagnosis / Problem: plcental insufficency non reassuring heart tracing Discharge Goals Goal(s): Routine recovery after Activity Recommendations Activity Limitations: as noted below ACTIVITY RECOMMENDATIONS: * Gradual return to full activity over the next 2-3 weeks. * No lifting - nothing heavier than baby over the next 2-3 weeks. * Do not engage in vigorous exercise, sexual activity or sports for 6 weeks. * Do not drive or operate any motorized equipment for 14 days. * You may shower/bathe daily. DIET: Resume Previous Diet If Breast-feeding: * Increase caloric intake by 500 calories, eat 3 well balanced meals, 2 high protein snacks a day and drink 6-8 8oz. glasses of fluid per day. BREAST CARE: If you are not breast feeding: * Wear a supportive bra 24 hours a day for one to two weeks. * Avoid stimulating your breasts and nipples as much as possible during the first few weeks after delivery. * When taking a shower, have the warm water hit your back, not breasts. * When your breasts feel full, apply ice packs. Usually three to four times a day helps ease the discomfort. * Take a mild pain medication (Tylenol / Motrin) when you are uncomfortable. If breast feeding: * Use breast milk to lubricate nipples. Lansinoh cream may be used for sore nipples. You do not need to remove cream prior to breast feeding. If using a different brand of cream, check the label for directions regarding removal of cream prior to nursing. * Wear a supportive bra. * If having problems with breasts or breast feeding, call a [employer] payroll consultant or your health care provider. VITAMINS: * One tablet daily. Continue taking while or until you have your check up in 6 weeks. SPECIAL CARE INSTRUCTIONS: * Vaginal rest (no tampons, douching, intercourse) until after doctor's visit. * control as discussed with doctor. * Verbalizes understanding of car seat law as reviewed with patient by nursing. * Car Seat hand-out given and reviewed with patient by nursing. * Shaken baby information reviewed with patient by nursing. Call you doctor if: * Heavy bleeding (saturating a pad an hour) or passing clots the size of your fist. Bleeding has a foul smelling odor. * A fever greater than 100.4 degrees F (38 degrees C) on two occasions four hours apart and/or chills. * Unusual pain in the pelvic or vaginal areas. Pain should improve each day . * Call the doctor for any increased redness, drainage or swelling around the incision and any pain unrelieved by prescribed pain medication. * Signs and symptoms of phlebitis(possible blood clots forming in the veins): leg pain, warm, red or swollen area on leg. * "Baby Blues" lasting longer than two weeks. If you have any questions or concerns, call your health care practitioner at [phone]. FOLLOW-UP VISIT: Follow-up visit for examination in 6 weeks. Incision check (staple removal) in 1 week. Please call office at [phone] if not already scheduled. . Instructions / Follow-Up Instructions / Follow-Up ACTIVITY RECOMMENDATIONS: * Gradual return to full activity over the next 2-3 weeks. * No lifting - nothing heavier than baby over the next 2-3 weeks. * Do not engage in vigorous exercise, sexual activity or sports for 6 weeks. * Do not drive or operate any motorized equipment for 14 days. * You may shower/bathe daily. DIET: Resume Previous Diet If Breast-feeding: * Increase caloric intake by 500 calories, eat 3 well balanced meals, 2 high protein snacks a day and drink 6-8 8oz. glasses of fluid per day. BREAST CARE: If you are not breast feeding: * Wear a supportive bra 24 hours a day for one to two weeks. * Avoid stimulating your breasts and nipples as much as possible during the first few weeks after delivery. * When taking a shower, have the warm water hit your back, not breasts. * When your breasts feel full, apply ice packs. Usually three to four times a day helps ease the discomfort. * Take a mild pain medication (Tylenol / Motrin) when you are uncomfortable. If breast feeding: * Use breast milk to lubricate nipples. Lansinoh cream may be used for sore nipples. You do not need to remove cream prior to breast feeding. If using a different brand of cream, check the label for directions regarding removal of cream prior to nursing. * Wear a supportive bra. * If having problems with breasts or breast feeding, call a [employer] payroll consultant or your health care provider. VITAMINS: * One tablet daily. Continue taking while or until you have your check up in 6 weeks. SPECIAL CARE INSTRUCTIONS: * Vaginal rest (no tampons, douching, intercourse) until after doctor's visit. * control as discussed with doctor. * Verbalizes understanding of car seat law as reviewed with patient by nursing. * Car Seat hand-out given and reviewed with patient by nursing. * Shaken baby information reviewed with patient by nursing. Call you doctor if: * Heavy bleeding (saturating a pad an hour) or passing clots the size of your fist. Bleeding has a foul smelling odor. * A fever greater than 100.4 degrees F (38 degrees C) on two occasions four hours apart and/or chills. * Unusual pain in the pelvic or vaginal areas. Pain should improve each day . * Call the doctor for any increased redness, drainage or swelling around the incision and any pain unrelieved by prescribed pain medication. * Signs and symptoms of phlebitis(possible blood clots forming in the veins): leg pain, warm, red or swollen area on leg. * "Baby Blues" lasting longer than two weeks. If you have any questions or concerns, call your health care practitioner at [phone]. FOLLOW-UP VISIT: Follow-up visit for examination in 6 weeks. Incision check (staple removal) in 1 week. Please call office at [phone] if not already scheduled. Current Hospital Diet Patient's current hospital diet: Regular OB Diet Discharge Diet Recommended Diet: Regular Diet Procedures Procedures Performed: Primary Caesarean Section with Bilateral Tubal Ligation for the of a viable male child at 0645. Pending Studies Studies pending at discharge: no Medical Emergencies . Who to Call and When: Medical Emergencies: If at any time you feel your situation is an emergency, please call 911 immediately. . Non-Emergent Contact Non-Emergency issues call your: Coronary Care Unit Nurse Call Non-Emergent contact if: temperature is above 100.5 . . "Provider Documentation" section prepared by Horacio Vogel. . VTE Core Measure Inpt VTE Proph given/why not?: Treatment not indicated
--- NOTE | 2017-10-25 08:11 | DISCHARGE SUMMARY ---
Mrs. Norris was admitted at about 36 weeks' gestation. She is a 2, para 1. Present is complicated by gestational diabetes. She came in with a lot of pain and concentrated urine. We first thought she might be in early labor. We rehydrated her. The problem was that she had a nonreassuring heart rate tracing even at 36 weeks' gestation with recurrent type 2 decelerations. Initially when we rehydrated her, the monitor tracing improved. We also evaluated her with the biophysical profile, which was 04/07. We decided to keep her overnight and see what the tracing was. During the evening, she ended up with a 9 minute deep deceleration and with type 2 dips after 90% of spontaneous unstimulated contractions. We felt that she had a placental insufficiency and scheduled her for an urgent section. She also at this time requested sterilization and we ended up performing a primary low segment section along with a bilateral partial salpingectomy. Postoperatively, the patient did well. She remained afebrile. She did receive the preoperative antibiotics. Her bowel sounds returned. On the third postoperative day, she was ambulating well, eating well and she was afebrile. Her preoperative hemoglobin was 12.3 and hematocrit 36.5. Postoperatively, hemoglobin fell to 10.8 and hematocrit 31.1. She was discharged with prescriptions for Percocet and Motrin and given the usual instructions to call the office if she had a temperature over 100 or any heavy bleeding and to call for removal of deng.
[2017-10-25] MEDS: DOCUSATE SODIUM 100 MG CAP PO SCH (08:21)
[2017-10-25] MEDS: FERROUS SULFATE 325 MG TAB PO SCH (08:21)
[2017-10-25] MEDS: PRENATAL VITAMIN TAB PO SCH (08:21)
[2017-10-25] MEDS: SIMETHICONE 80 MG CHEW PO SCH (08:22)
[2017-10-25 08:48] VITALS: BP 138/84; PULSE 70; TEMP 36.8
[2017-10-25 09:40] VITALS: BP_DIAS 84; PULSE 70; TEMP 36.8
== END 2017-10-25 09:50 | disposition home or self-care (01) | DRG 765 ==
LOC: C.OPB 22:28 → C.LD 22:28 → C.OPB 23:22 → OBSVTOIN 10-22 05:39 → C.OBG 10-22 10:12
PROVIDERS: ADMIT Obstetrics & Gynecology; ATTEND Obstetrics & Gynecology
PROC: 10D00Z1 Extraction of Products of Conception, Low, Open Approach (ICD-10-PCS; principal; 2017-10-22 05:42)
PROC: 0UB70ZZ Excision of Bilateral Fallopian Tubes, Open Approach (ICD-10-PCS; principal; 2017-10-22 05:42)
DX: O76 Abnormality in fetal heart rate and rhythm complicating labor and delivery (principal); O60.13X0 Preterm labor second trimester with preterm delivery third trimester, not applicable or unspecified; O99.52 Diseases of the respiratory system complicating childbirth; O09.523 Supervision of elderly multigravida, third trimester; J10.1 Influenza due to other identified influenza virus with other respiratory manifestations; O24.420 Gestational diabetes mellitus in childbirth, diet controlled; O21.0 Mild hyperemesis gravidarum; Z3A.36 36 weeks gestation of pregnancy; Z37.0 Single live birth

== ENCOUNTER 2024-12-23 09:10 | Inpatient (IN) ==
--- NOTE | 2024-12-15 12:16 | Anesthesiology Consultation ---
Date of Service December 15, 2024 Assessment & Plan (1) Encounter for pre-operative examination: Chart Review Chart Review: Acceptable Risk for Surgery History Surgery Operation Date: 12/23/24 10:40 Proposed Procedures p Total Abdominal Hysterectomy - Horacio Vogel MD Height/Weight Height: 5 ft 5 in Weight: 93.44 kg Allergies Allergy/AdvReac Type Severity Reaction Status Date / Time latex Allergy Intermediate Hives Verified 12/12/24 14:54 Medications Home Medications Medication Instructions Recorded Confirmed Last Taken atorvastatin 80 mg tablet 80 mg PO QAM 05/28/19 12/12/24 12/14/23 metformin 500 mg tablet,extended 500 mg PO QAM 12/14/23 12/12/24 12/14/23 08:00 release 24 hr omeprazole 40 mg capsule,delayed 40 mg PO BID 12/14/23 12/12/24 12/14/23 08:00 release albuterol sulfate 90 mcg/actuation 2 puff inhalation Q6H PRN 12/12/24 12/12/24 Unknown aerosol inhaler Shortness Of Breath fluoxetine 40 mg capsule 40 mg PO QAM 12/12/24 12/12/24 Unknown fluticasone propionate 220 2 puff inhalation BID 12/12/24 12/12/24 Unknown mcg/actuation HFA aerosol inhaler hydroxyzine HCl 25 mg tablet 25 - 50 mg PO TID 12/12/24 12/12/24 Unknown rimegepant 75 mg disintegrating 75 mg PO Q OTHER DAY 12/12/24 12/12/24 Unknown tablet (Nurtec ODT) Past Medical History Medical History COVID-19 long hauler manifesting chronic cough pt states she had hx of covid 4x and has lingering cough Chiari I malformation Syncope no meds, per pt she was diagnosed by neurologist for syncope, does not follow with phy therapist Morbid obesity with BMI of 40.0-44.9, adult Scoliosis Difficulty swallowing intermittent issues---had EGD in 2019 Diabetes mellitus, type 2 Bipolar disorder Migraine Hyperlipidemia Sleep apnea hx of, no device Pneumonia hx 06/16/19--resolved Asthma inhalers daily/prn Past Family History Family History Father Family history of diabetes mellitus Uncle Family history of esophageal cancer Other No family history of adverse response to anesthesia Past Surgical History Surgical History History of esophagogastroduodenoscopy (EGD) History of cholecystectomy History of section History of colposcopy History of tooth extraction all teeth removed Social History Smoking Status: Current every day smoker tobacco type: cigarettes Smoking cigarettes per day: less than 10 a day Do You Dip or Chew Tobacco: No Hx Alcohol Use: Yes ("rarely") Alcohol type: beer alcohol intake frequency: holidays/special occasions only Hx Substance Use: No substance use type: does not use Testing Laboratory Results Laboratory Tests 12/14/23 20:23 Hgb 15.6 Plt Count 305 Potassium 4.0 Creatinine 0.70 Glucose 340 H* Electrocardiogram Date: 12/13/24 Findings: + NSR @ (22)
[2024-12-23 09:38] LABS: Basophils # (auto) 0.08 K/uL (0.00-0.20); Eosinophils # (auto) 0.57 K/uL (0.00-0.50); Eosinophils % (auto) 7.4 %; Hematocrit (blood only) 41.5 % (37.0-47.0); Hemoglobin 14.7 g/dl (12.0-16.0); Immature Granulocytes # (auto) 0.02 K/uL (0.01-0.20); Immature Granulocytes % (auto) 0.3 %; Lymphocytes # (auto) 2.74 K/uL (1.20-3.40); Lymphocytes % (auto) 35.6 %; Mean Corpuscular Hemoglobin 31.2 pg (25.0-34.0); Mean Corpuscular Hgb Conc 35.4 g/dL (32.0-36.0); Mean Corpuscular Volume 88.1 fL (80.0-100.0); Monocytes # (auto) 0.51 K/uL (0.11-0.59); Monocytes % (auto) 6.6 %; Neutrophils # (auto) 3.78 K/uL (1.40-6.50); Neutrophils % (auto) 49.1 %; Platelet Count 325 K/uL (130-400); RDW Coefficient of Variation 11.7 % (11.5-14.5); RDW Standard Deviation 37.6 fL (36.4-46.3); Red Blood Count 4.71 M/uL (4.20-5.40)
[2024-12-23] MEDS: LR 15ML/HR IV SCH (09:48)
[2024-12-23] MEDS: LACTATED RINGER'S 1,000 ML IV SCH (09:48)
--- NOTE | 2024-12-23 10:52 | History & Physical Bridge Note ---
Date of Service December 23, 2024 History & Physical Bridge Note I have examined the patient, reviewed the History & Physical and in the interval since the performance of the History & Physical I have noted the following changes of clinical significance: no changes noted
[2024-12-23] MEDS ORDERED: PROPOFOL IV EMULSION 10 MG/ML 20 ML VIAL IV ONE (10:58)
[2024-12-23] MEDS ORDERED: ONDANSETRON INJ 2 MG/ML 2 ML VIAL ONE (10:58)
[2024-12-23] MEDS ORDERED: MIDAZOLAM HCL 1 MG/ML 2ML VIAL ONE (10:58)
[2024-12-23] MEDS ORDERED: LIDOCAINE 2% 2 ML VIAL/AMP(20MG/ML) INFIL ONE (10:58)
[2024-12-23] MEDS ORDERED: ROCURONIUM BROMIDE 10 MG/ML 5 ML VIAL IV ONE ×2 (10:58→13:43)
[2024-12-23] MEDS ORDERED: DEXAMETHASONE SOD INJ 4 MG/ML VIAL ONE (10:58)
[2024-12-23] MEDS ORDERED: fentaNYL citrate PF 100 MCG/2 ML VIAL ONE (10:59)
[2024-12-23] MEDS ORDERED: DROPERIDOL 5 MG/2 ML VIAL ONE (10:59)
[2024-12-23] MEDS ORDERED: MoRPHine SULFATE PF 1 MG/ML 10 ML AMP/VIAL ONE (11:13)
--- OUTSIDE RECORDS SUMMARY | 2024-12-23 11:46 | External Medical Summary | Summary of Care ---
Author Name Unknown Organization [facility] Address [address] [place] [address] Phone [phone] Care Team Providers Care Pulmonary Nurse Practitioner Name Role Phone Juju Bernabe DO Primary Care Provider Encounter Details Date Type Department Care Team (Late st Contact Info) Description 12/22/2024 Telephone Gynecology/Obstetrics [facility] [address] [place] [address] Horacio Vogel MD [address] [place] [phone] Allergies Active Allergy Reactions Criticality Noted Date Comments Latex 09/20/2003 rash documented as of this encounter (statuses as of 12/22/2024) Medications Omeprazole 40 MG Oral Capsule Delayed Release (PriLOSEC)Indicatio ns:Black stools,Abdominal pain, epigastric TAKE 1 CAPSULE BY MOUTH twice daily EVERY MORNING 1 hr before first meal and before bedtime 60 Capsule 5 4 Active Nurtec 75 MG Oral Tablet Disintegrating (Rimegepant Sulfate) TAKE 1 TABLET BY MOUTH EVERY OTHER DAY 16 Tablet 4 4 Active FLUoxetine HCl 40 MG Oral Capsule (PROzac)Indications :Major depressive disorder, recurrent episode, moderate (HCC),Anxiety Take 1 Capsule by mouth in the morning. 30 Capsule 5 5 Active hydrOXYzine HCl 25 MG Oral TabletIndications:A nxiety Take 1 tablet by mouth in the morning, 1 tablet by mouth in the afternoon, and 2 tablets by mouth at bedtime. 120 Tablet 3 5 Active Atorvastatin Calcium 80 MG Oral Tablet (Lipitor)Indication s:Dyslipidemia, goal LDL below 130 Take 1 Tablet by mouth in the morning. 90 Tablet 1 5 Active metFORMIN HCl ER 500 MG Oral Tablet Extended Release 24 Hour (Glucophage XR)Indications:Type 2 diabetes mellitus with hemoglobin A1c goal of less than 7.0% (HCC) TAKE 1 TABLET BY MOUTH IN THE MORNING 90 Tablet 5 Active documented as of this encounter (statuses as of 12/22/2024) Active Problems Problem Noted Date Diagnosed Date Major depressive disorder, recurrent episode, mo derate 09/02/2022 Adenomyomatosis of gallbladder 01/07/2022 Gastroparesis 01/07/2022 RUQ pain 01/07/2022 Body mass index (BMI) of 40.0 to 44.9 in adult 0 12/09/2021 Overview: Per Obesity protocol Menorrhagia with irregular cycle 11/27/2021 History of gastritis 11/15/2021 Overview (11/15/2021): EGD 2018- erosive gastropathy Tobacco use disorder 09/07/2019 Type 2 diabetes mellitus wit h hemoglobin A1c goal of less than 7.0% 07/05/2019 Mild persistent asthma without complication 05/31 Glucose intolerance (impaired glucose tolerance) 03/11/2013 Adjustment disorder with depressed mood 02/01/20 13 Anxiety state 01/31/2013 Migraine 10/27/2011 Varicose vein of leg 07/08/2004 Dental caries extending into pulp documented as of this encounter (statuses as of 12/22/2024) Resolved Problems Problem Noted Date Diagnosed Date Resolved Date Uncontrolled type 2 diabetes mellitus with hyperglycemia 11/27/2021 10/31/2022 BMI 40.0-44.9, adult 06/20/2019 020 Obesity, Class I, BMI 30.0-3 4.9 (see actual BMI) 10/09/2014 06/04/2017 Overview: Per Obesity protocol #1 Asthma exacerbation 01/31/2013 04/29/20 19 ADVANCE DIRECTIVE INFORMATION 11/24/2005 06/03/2024 Overview (11/24/2005): No, Advance Directive brochure given to patient. documented as of this encounter (statuses as of 12/22/2024) Immunizations Name Administration Dates Next Due COVID-19 mRNA, LNP-s, No Pre serve, 2-Dose Series (Moderna) 01/31/2021,01/03/2021 Hepatitis B, 20+ yrs 07/05/2020 Pneumococcal Polysaccharide PPV23 (Pneumovax) 07/27/2006 Seasonal Influenza Vac., MDV , IM, 0.5 mL (Fluzone) 10/09/2014,05/17/2013,07/27/2006 Seasonal Influenza, PF, 6 M & above, IM , (FluLaval or Fluzone) 07/05/2020 Seasonal Influenza, Quadriva lent, No Preserve, IM 06/27/2015 TDAP (age 10 and older)(Boostrix) 01/31/2013 documented as of this encounter Social History Tobacco Use Types Packs/Day Years Used Date Smoking Tobacco: Every Day Cigarettes 0.5 30.5 Started: 1994 Smokeless Tobacco: Never Alcohol Use Standard Drinks/Week Comments No 0 (1 standard drink = 0.6 oz pur e alcohol) PHQ-2 Answer Date Recorded PHQ Adult Total Score 18 08/10/2024 Hunger Vital Sign Answer Date Recorded Within the past 12 months, y ou worried that your food would run out before you got the money to buy more. Never true 08/10/20 24 Within the past 12 months, t he food you bought just didn't last and you didn't have money to get more. Never true 08/10/2024 Childcare Answer Date Recorded Do you feel overwhelmed with taking care of a child, family member or friend? No 08/10/2024 Does your family need help f inding childcare? (Household - for ages 0-17 years) Not on file 08/10/2024 Clothing Answer Date Recorded Have you been unable to get clothing when it was really needed? No 08/10/2024 Is your family able to get c lothes or diapers when needed? (Household - for ages 0-17 years) Not on file 08/10/2024 Personal Safety Answer Date Recorded Do you feel unsafe or have concerns for your saf ety? No 08/10/2024 Do you have concerns for you r family's safety? (Household - for ages 0-17 years) Not on file 08/10/2024 Utilities Answer Date Recorded Do you have trouble paying y our heating, water, or electric bill? No 08/10/2024 Is your family able to pay t he heat, water, or electric bill? (Household - for ages 0-17 years) Not on file 08/10/2024 Does your family have access to good internet? (Household - for ages 0-17 years) Not on file 08/10/2024 Employment Status Answer Date Recorded Are you unemployed or without regular income? No 08/10/2024 Does the household have a re lar source of income? (Household - for ages 0-17 years) Not on file 08/10/2024 Social Connections Answer Date Recorded How often do you feel lonely or isolated from those around you? Sometimes 08/10/2024 Financial Resource Strain Answer Date R ecorded Do you have any trouble payi ng for your medications, or do you think you might in the future? No 08/10/2024 Does your family have troubl e paying for medicine? (Household - for ages 0-17 years) Not on file 08/10/2024 Transportation Needs Answer Date Record ed Do you have trouble getting a ride to medical visits or work? (Adult - for ages 18 years and over) Not on file 08/10/2024 Does your family have a hard time getting a ride to doctors visits? (Household - for ages 0-17 years) Not on file 08/10/2024 Has lack of transportation k ept you from medical appointments, meetings, work, or from getting things needed for daily living? Check all that apply. No 08/10/2024 Do you (or your family) have trouble finding or paying for a ride (transportation)? (Household - for ages 0-17 years) Not on file 08/10/2024 Housing Stability Answer Date Recorded Do you currently live in a s helter or have no steady place to sleep at night? No 08/10/2024 Do you think you are at risk of becoming homeless? (Adult - for ages 18 years and over) Not on file 08/10/2024 Does your family worry about paying for your home or becoming homeless? (Household - for ages 0-17 years) Not on file 1 10/11/2023 Are you homeless or worried that you might be in the future? No 08/10/2024 Are you (or your family) carine eless or worried that you might be in the future? (Household - for ages 0-17 years) Not on file Food Insecurity Answer Date Recorded Do you need food for this week? No 08/10/2024 Are you able to get enough f ood for your family? (Household - for ages 0-17 years) Not on file 08/10/2024 Does your family need food t his week? (Household - for ages 0-17 years) Not on file 08/10/2024 Do you always have enough fo od for your family? (Household - for ages 0-17 years) Not on file 08/10/2024 Food Insecurity Answer Date Recorded Within the past 12 months, y ou worried that your food would run out before you got the money to buy more. Never true 08/10/20 24 Within the past 12 months, t he food you bought just didn't last and you didn't have money to get more. Never true 08/10/2024 Do you need food for this week? No 08/10/2024 Education Answer Date Recorded What is the highest level of school you have completed or the highest degree you have received? High school graduate 08/10/2024 Comments No Sex and Gender Information Value Date Recorded Sex Assigned at Female 08/10/2024 10:48 AM EST Legal Sex Female 5:14 AM EST Gender Identity Female 08/10/2024 10:48 AM EST Sexual Orientation Straight 08/10/2024 10 :48 AM EST Occupation Industry Job Start Date Job End Date At home Not on file Not on file Not on file disabled medical CP Not on file Not on file Not on f ile documented as of this encounter Miscellaneous Notes * Telephone Encounter - Horacio Vogel MD - 12/22/2024 9:44 AM EDT Preop labs normal documented in this encounter Plan of Treatment Upcoming Encounters Date Type Department Care Team ([facility] st Contact Info) Description 01/17/2025 11:30 AM EDT Office Visit Gynecology/Obstetrics [facility] [address] [place] [address] Horacio Vogel MD [address] [place] [phone] 02/08/2025 1:30 PM EDT Telemedicine Psychiatry [facility] [address] [place] [address] Rebecca Winters CRNP [address] [place] [address] Health Maintenance Due Date Last Done Comments DISCUSS TOBACCO CESSATION (REFER TO SMARTSET #4885) 1978 Depression Monitoring 1990 Pneumococcal Vaccine: Pediatrics (0 to 5 Years) and At-Risk Patients (6 to 18 Years and 19+ Years) (2 of 2 - PCV) 07/27/2007 07/27/2006 HPV/Co-Test 2008 *SPIROMETRY ONCE FOR ASTHMA-ADULT 06/18/2019 Hepatitis B Vaccine (2 of 3 - 19+ 3-dose series) 08/02/2020 07/05/2020 Mammogram 11/25/2022 11/25/2021, 07/10/2020 Albumin/Creatinine Ratio 12/06/2022 12/06/2021, 07/02 Diabetic Foot Exam 01/07/2023 01/07/2022, 1 09/04/2019, 07/27/2006 HbA1c 01/19/2023 07/22/2022, 050 05/2022, 10/18/2021, Additional history exists DTap/Tdap Vaccines (2 - Td or Tdap) 01/31/2023 01/31/2013 Cologuard 2023 Colonoscopy 2023 Colorectal Cancer Screening 2023 Fecal Occult Blood Test 2023 Sigmoidoscopy 2023 COVID-19 Vaccine (3 - 2024-25 season) 2024 01/31/2021, 01/03/2021 Cervical Cancer Screening 12/06/2024 Pap Smear 12/06/2024 12/06/2021 Diabetic Eye Exam 01/21/2025 01/22/2024, , 06/06/2019, Additional history exists Influenza Vaccine (FLU shot) (Season Ended) 2025 07/05/2020, 06/27/2015, 10/09/2014, Additional history exists GFR 09/21/2025 09/21/2024, 10/29, 10/18/2021, Additional history exists Lipid Panel 10/18/2026 10/18/2021, 12/2019, 07/04/2019, Additional history exists HPV (Gardasil) Vaccine Aged Out No lo nger eligible based on patient's age to complete this topic MENINGOCOCCAL (MENACTRA/MENVEO) Aged Out No longer eligible based on patient's age to complete this topic Meningitis B Vaccine (Bexsero/Trumemba) Aged Out No longer eligible based on patient's age to complete this topic documented as of this encounter Medical Devices Not on filedocumented as of this encounter Advance Directives * Full Code (Latest Code Status on File) Date Activated Date Inactivated Comments 01/15/2022 6:44 AM 01/15/2022 3:11 PM This order r eflects the patients wishes and were consensually agreed upon. Question Answer Comments Discussion of Advance Directives occurred with: Not Discussed Does the patient have a Living Will? No Does the patient have Health Care Power of Attor danial? No Care Teams Pulmonary Nurse Practitioner Relationship Specialty Start Date End Date Juju Bernabe DO [address] [place] [address] [place] [phone] PCP - General Internal Medicine 11/15/24 documented as of this encounter
--- OUTSIDE RECORDS SUMMARY | 2024-12-23 11:46 | External Medical Summary | Summary of Care ---
Author Name Unknown Organization [facility] Address [address] [place] [address] Phone [phone] Care Team Providers Care [employer] Sheets Supervisor Name Role Phone Tomas Santos DO Primary Care Provider Reason for Visit * Reason Comments eRx-Medication Refill Encounter Details Date Type Department Care Team ([facility] st Contact Info) Description 12/15/2024 Refill Family Medicine [address] [phone] Tomas Santos DO [address] [place] [address] [place] [address] Encounter for long-term (current) use of medications*; Type 2 diabetes mellitus with hemoglobin A1c goal of less than 7.0% ([facility]) Allergies Active Allergy Reactions Criticality Noted Date Comments Latex 09/20/2003 rash documented as of this encounter (statuses as of 12/21/2024) Medications Omeprazole 40 MG Oral Capsule Delayed Release (PriLOSEC)Indicati ons:Black stools,Abdominal pain, epigastric TAKE 1 CAPSULE BY MOUTH twice daily EVERY MORNING 1 hr before first meal and before bedtime 60 Capsule 5 12/25/19 24 Active Nurtec 75 MG Oral Tablet Disintegrating (Rimegepant Sulfate) TAKE 1 TABLET BY MOUTH EVERY OTHER DAY 16 Tablet 4 07/13/20 24 Active FLUoxetine HCl 40 MG Oral Capsule (PROzac)Indication s:Major depressive disorder, recurrent episode, moderate (HCC),Anxiety Take 1 Capsule by mouth in the morning. 30 Capsule 5 10/03/19 25 Active hydrOXYzine HCl 25 MG Oral TabletIndications: Anxiety Take 1 tablet by mouth in the morning, 1 tablet by mouth in the afternoon, and 2 tablets by mouth at bedtime. 120 Tablet 3 10/03/19 25 Active Atorvastatin Calcium 80 MG Oral Tablet (Lipitor)Indicatio ns:Dyslipidemia, goal LDL below 130 Take 1 Tablet by mouth in the morning. 90 Tablet 1 11/16/19 25 Active metFORMIN HCl ER 500 MG Oral Tablet Extended Release 24 Hour (Glucophage XR)Indications:Typ e 2 diabetes mellitus with hemoglobin A1c goal of less than 7.0% (HCC) TAKE 1 TABLET BY MOUTH IN THE MORNING 90 Tablet 12/17/19 25 Active metFORMIN HCl ER 500 MG Oral Tablet Extended Release 24 Hour (Glucophage XR)Indications:Typ e 2 diabetes mellitus with hemoglobin A1c goal of less than 7.0% (HCC) Take 1 Tablet by mouth in the morning. 360 Tablet 12/25/19 24 025 Discontinued documented as of this encounter (statuses as of 12/21/2024) Active Problems Problem Noted Date Diagnosed Date [...] as of this encounter (statuses as of 12/21/2024) Resolved Problems Problem Noted Date Diagnosed Date [...] as of this encounter (statuses as of 12/21/2024) Immunizations Name Administration Dates Next Due COVID-19 [...] encounter Miscellaneous Notes * Telephone Encounter - Cady Black - 12/20/2024 10:20 PM EDT Received message from [facility] regarding patient needing labs. Patient was notified. Successfully contacted patient and provided [facility] message. * Telephone Encounter - Pita Cobb [facility] - 12/16/2024 9:01 AM EDTSigned Prescriptions: Disp Refills metFORMIN HCl ER 500 MG Oral Tablet Extend*90 Tab*0 Sig: TAKE 1 TABLET BY MOUTH IN THE MORNING Authorizing Provider: TOMAS SANTOS Ordering User: PITA COBB * Telephone Encounter - Pita Cobb [facility] - 12/16/2024 8:59 AM EDT Provided 90 days supply with 0 refill(s). Per refill protocol patient should have lipid panel on file within past year. Reviewed : AMP report Care Gaps/Health Maintenance medications list for any routine labs typically ordered for this patient. Lab orders placed. Please contact patient to advise of labs ordered for blood draw AND URINE specimen (patient will have to be able to void to provide sample). Recommend patient to fast if able for labs. Patient may still have water and regular medications. Advise to obtain labs before requesting the next refill. Thanks, Pita Cobb, PharmD Clinical Pharmacist [facility] [phone] 12/16/2024 9:00 AM documented in this encounter Plan of Treatment Upcoming Encounters Date Type Department Care Team (Late st Contact Info) Description 01/17/2025 11:30 AM EDT [facility] [address] [place] [address] Horacio Voegl MD [address] [place] [phone] 02/08/2025 1:30 PM EDT Telemedicine Psychiatry [facility] [address] [place] [address] Rebecca Winters CRNP [address] [place] [address] Scheduled Orders Name Type Priority Associated Diagnoses Orde r Schedule LIPID PANEL WITH DIRECT LDL IF TG IS HIGH Lab Routine Encounter for long-term (current) use of medications Expected: 12/16/2024 (Approximate), Expires: 12/16/2025 HEMOGLOBIN A1C Lab Routine Type 2 diabetes mellitus with hemoglobin A1c goal of less than 7.0% (HCC) Encounter for long-term (current) use of medications Expected: 12/16/2024 (Approximate), Expires: 12/16/2025 VITAMIN B12 Lab Routine Encounter for long-term (current) use of medications Expected: 12/16/2024 (Approximate), Expires: 12/16/2025 ALBUMIN / CREATININE RATIO, URINE Lab Routine Encounter for long-term (current) use of medications Expected: 12/23/2024, Expires: 12/16/2025 Health Maintenance Due Date Last Done Comments DISCUSS TOBACCO CESSATION (REFER TO SMARTSET #6435) 1978 Depression Monitoring 1990 Pneumococcal Vaccine: Pediatrics [...] 01/07/2022, 1 09/04/2019, 07/27/2006 HbA1c 01/19/2023 07/22/2022, 05/2022, 10/18/2021, Additional history exists DTap/Tdap Vaccines (2 - Td or Tdap) 01/31/2023 01/31/2013 Cologuard 2023 Colonoscopy 2023 Colorectal Cancer Screening 2023 Fecal Occult Blood Test 2023 Sigmoidoscopy 2023 COVID-19 Vaccine ( season) 2024 01/31/2021, 01/03/2021 Cervical Cancer Screening [...] Not on filedocumented as of this encounter Visit Diagnoses Diagnosis Encounter for long-term (current) use of medications- Primary Encounter for long-term (current) use of other medications Type 2 diabetes mellitus with hemoglobin A1c goal of less than 7.0% (HCC) documented in this encounter Advance Directives * Full Code [...] Power of Attor danial? No Care Teams [employer] Sheets Supervisor Relationship Specialty Start Date End Date Tomas Santos DO [address] [place] [address] [place] [phone] PCP - General Internal Medicine 11/15/24 documented as of this encounter
--- OUTSIDE RECORDS SUMMARY | 2024-12-23 11:47 | External Medical Summary | Summary of Care ---
Author Name Unknown Organization [facility] Address [address] [place] [address] Phone [phone] Care Team Providers Care Reducing System Operator Name Role Phone Unavailable Primary Care Provider Unavailabl e Reason for Visit * Reason Comments Consultation Encounter Details Date Type Department Care Team ([facility] st Contact Info) Description 10/06/2024 11:30 AM EST Office Visit Gynecology/Obstetrics [facility] [address] [place] [address] Horacio Vogel MD [address] [place] [phone] Adenomyosis* Allergies Active Allergy Reactions Criticality Noted Date Comments Latex 09/20/2003 rash documented as of this encounter (statuses as of 10/06/2024) Medications metFORMIN HCl ER 500 MG Oral Tablet Extended Release 24 Hour (Glucophage XR)Indications:Type 2 diabetes mellitus with hemoglobin A1c goal of less than 7.0% (HCC) Take 1 Tablet by mouth in the morning. 360 Tablet 4 Active Omeprazole 40 MG Oral Capsule Delayed Release (PriLOSEC)Indicatio ns:Black stools,Abdominal pain, epigastric TAKE 1 CAPSULE BY MOUTH twice daily EVERY MORNING 1 hr before first meal and before bedtime 60 Capsule 5 4 Active Atorvastatin Calcium 80 MG Oral Tablet (Lipitor)Indication s:Dyslipidemia, goal LDL below 130 Take 1 Tablet by mouth in the morning. 30 Tablet 5 4 Active Nurtec 75 MG Oral [...] at bedtime. 120 Tablet 3 5 Active documented as of this encounter (statuses as of 10/06/2024) Active Problems Problem Noted Date Diagnosed Date [...] as of this encounter (statuses as of 10/06/2024) Resolved Problems Problem Noted Date Diagnosed Date [...] as of this encounter (statuses as of 10/06/2024) Immunizations Name Administration Dates Next Due COVID-19 [...] Date Smoking Tobacco: Every Day Cigarettes 0.5 30.3 Started: 1994 Smokeless Tobacco: Never Alcohol Use [...] 08/10/2024 Does the household have a re gular source of income? (Household - for ages [...] f ile documented as of this encounter Last Filed Vital Signs Vital Sign Reading Time Taken Comments Blood Pressure 108/70 10/06/2024 11:30 AM EST Pulse - - Temperature - - Respiratory Rate - - Oxygen Saturation - - Inhaled Oxygen Concentration - - Weight 93.4 kg (206 lb) 10/06/2024 11:30 AM EST Height 165.1 cm (5' 5") 10/06/2024 11:30 AM EST Body Mass Index 34.28 10/06/2024 11:30 AM EST documented in this encounter Progress Notes * Horacio Vogel MD - 10/06/2024 12:03 PM EST Subjective Jayleen Norris is a 44 year old female. Chief Complaint Patient presents with Consultation HPI: Patient is a 44-year-old 2 para 2. Had her tubes tied with her last delivery which wasvia . Has problems with heavy vaginal bleeding and clotting for several years. Getting herperiod proximally once per month. She has 3 extremely heavy days with passing large clots and soaking a large tampon in under an hour. She is presently scheduled for transvaginal ultrasound along with a preoperative endometrial biopsy. PMH: Patient Active Problem List Diagnosis Varicose vein of leg Migraine Adjustment disorder with depressed mood Anxiety state Glucose intolerance (impaired glucose tolerance) Dental caries extending into pulp Mild persistent asthma without complication Type 2 diabetes mellitus with hemoglobin A1c goal of less than 7.0% ([facility]) Tobacco use disorder History of gastritis Menorrhagia with irregular cycle Body mass index (BMI) of 40.0 to 44.9 in adult ([facility]) Adenomyomatosis of gallbladder Gastroparesis RUQ pain Major depressive disorder, recurrent episode, moderate ([facility]) Current Outpatient Medications Medication Sig Dispense Refill metFORMIN HCl ER 500 MG Oral Tablet Extended Release 24 Hour (Glucophage XR) Take 1 Tablet by mouthin the morning. 360 Tablet 0 Omeprazole 40 MG Oral Capsule Delayed Release (PriLOSEC) TAKE 1 CAPSULE BY MOUTH twice daily EVERY MORNING 1 hr before first meal and before bedtime 60 Capsule 5 Atorvastatin Calcium 80 MG Oral Tablet (Lipitor) Take 1 Tablet by mouth in the morning. 30 Tablet 5 Nurtec 75 MG Oral Tablet Disintegrating (Rimegepant Sulfate) TAKE 1 TABLET BY MOUTH EVERY OTHER DAY16 Tablet 4 FLUoxetine HCl 40 MG Oral Capsule (PROzac) Take 1 Capsule by mouth in the morning. 30 Capsule 5 hydrOXYzine HCl 25 MG Oral Tablet Take 1 tablet by mouth in the morning, 1 tablet by mouth in the afternoon, and 2 tablets by mouth at bedtime. 120 Tablet 3 No current facility-administered medications for this visit. Review of patient's allergies indicates: Allergen Reactions Latex rash Objective BP 108/70 | Ht 1.651 m (5' 5") | Wt 93.4 kg (206 lb) | LMP 08/29/2024 (Approximate) | BMI 34.28 kg/m² | BSA 2.07 m² Patient is alert oriented x3 cooperative in no acute distress. ASSESSMENT/PLAN: Discussed with the patient alternative solutions to heavy bleeding. Patient request hysterectomy with preservation of ovaries. There are no diagnoses linked to this encounter. Menorrhagia adenomyosis Check-out note: Schedule for [facility] Horacio Vogel MD documented in this encounter Nursing Notes * Rachel Galdamez LPN - 10/06/2024 11:51 AM EST Discuss hysterectomy. documented in this encounter Plan of Treatment Upcoming Encounters Date Type Department Care Team (Late st Contact Info) Description 10/07/2024 11:15 AM EST Imaging Radiology [address] [place] [id number] 02/08/2025 1:30 PM EDT Telemedicine Psychiatry [facility] [address] [place] [address] Rebecca Winters CRNP [address] [place] [phone] Health Maintenance Due Date Last Done Comments DISCUSS TOBACCO CESSATION (REFER TO SMARTSET #[id number]) 1978 Pneumococcal Vaccine: Pediatrics (0 to 5 Years) and At-Risk Patients (6 to 18 Years and 19+ Years) (2 of 2 - PCV) 07/27/2007 07/27/2006 HPV/Co-Test 2008 *SPIROMETRY ONCE FOR ASTHMA-ADULT 06/18/2019 Hepatitis B Vaccine (2 of 3 - 19+ 3-dose series) 08/02/2020 07/05/2020 Mammogram 11/25/2022 11/25/2021, 07/10/2020 Albumin/Creatinine Ratio 12/06/2022 12/06/2021, 07/02 Diabetic Foot Exam 01/07/2023 01/07/2022, 1 09/04/2019, 07/27/2006 HbA1c 01/19/2023 07/22/2022, 0 05/2022, 10/18/2021, Additional history exists DTap/Tdap Vaccines (2 - Td or Tdap) 01/31/2023 01/31/2013 Cologuard 2023 Colonoscopy 2023 Colorectal Cancer Screening 2023 Fecal Occult Blood Test 2023 Sigmoidoscopy 2023 COVID-19 Vaccine ( season) 2024 01/31/2021, 01/03/2021 Influenza Vaccine (FLU shot) (#1) 2024 07/05/2020, 06/27/2015, 10/09/2014, Additional history exists Cervical Cancer Screening 12/06/2024 Pap Smear 12/06/2024 12/06/2021 Diabetic Eye Exam 01/21/2025 01/22/2024, , 06/06/2019, Additional history exists Depression Monitoring 08/10/2025 08/10/2024 GFR 09/21/2025 09/21/2024, 10/29, 10/18/2021, Additional history [...] as of this encounter Visit Diagnoses Diagnosis Adenomyosis- Primary Endometriosis of uterus documented in this encounter Advance Directives * [...]
--- OUTSIDE RECORDS SUMMARY | 2024-12-23 11:47 | External Medical Summary | Summary of Care ---
Author Name Unknown Organization [facility] Address [address] [place] [address] Phone [phone] Care Team Providers Care Tobacco Grower Name Role Phone Unavailable Primary Care Provider Unavailabl e Reason for Visit * Reason Onset Date Comments Appointment 10/14/2024 Encounter Details Date Type Department Care Team ([facility] st Contact Info) Description 10/14/2024 Telephone Gynecology/Obstetrics [address] [phone] Services, Scheduling [address] [place] [address] Appointment Allergies Active Allergy Reactions Criticality Noted Date Comments Latex 09/20/2003 rash documented as of this encounter (statuses as of 10/14/2024) Medications metFORMIN HCl ER 500 MG Oral Tablet Extended Release 24 Hour (Glucophage XR)Indications:Type 2 diabetes mellitus with hemoglobin A1c goal of less than 7.0% ([facility]) Take 1 Tablet by mouth in the [...] as of this encounter (statuses as of 10/14/2024) Active Problems Problem Noted Date Diagnosed Date [...] as of this encounter (statuses as of 10/14/2024) Resolved Problems Problem Noted Date Diagnosed Date [...] as of this encounter (statuses as of 10/14/2024) Immunizations Name Administration Dates Next Due COVID-19 [...] encounter Miscellaneous Notes * Telephone Encounter - Liliana Mike OSA - 10/14/2024 3:40 PM EST Called pt. Explained I will be in touch with her when OR time comes available with Dr Vogel. * Telephone Encounter - Locker, Rosa, GIOVANNI - 10/14/2024 3:19 PM EST Received pts call in regards to scheduling her Hysterectomy and biopsy to be done. Pt stated she has not heard anything about scheduling either and would like someone to return her call. Please assist. Thank you. documented in this encounter Plan of Treatment Upcoming Encounters Date Type Department Care Team ([facility] st Contact Info) Description 02/08/2025 1:30 PM EDT Telemedicine Psychiatry [facility] [address] [place] [phone] Rebecca Winters CRNP [address] [place] [address] Health Maintenance Due Date Last Done Comments DISCUSS TOBACCO CESSATION (REFER TO SMARTSET #[id number]) 1978 Pneumococcal Vaccine: Pediatrics (0 to 5 [...] 01/07/2022, 1 09/04/2019, 07/27/2006 HbA1c 01/19/2023 07/22/2022, 05/0 05/2022, 10/18/2021, Additional history exists DTap/Tdap Vaccines [...] Additional history exists Lipid Panel 10/18/2026 10/18/2021, 1112/2019, 07/04/2019, Additional history exists HPV (Gardasil) Vaccine [...]
--- OUTSIDE RECORDS SUMMARY | 2024-12-23 11:47 | External Medical Summary | Summary of Care ---
Author Name Unknown Organization [facility] Address [address] [place] [address] Phone [phone] Care Team Providers Care Shell Core And Molding Supervisor Name Role Phone Unavailable Primary Care Provider Unavailabl e Reason for Visit * Reason Onset Date Comments Medication Refill 11/01/2024 Encounter Details Date Type Department Care Team (Late st Contact Info) Description 11/01/2024 Refill Family Medicine [address] [phone] Perla Ventura [address] [place] [address] Major depressive disorder, recurrent episode, moderate (HCC); Anxiety Allergies Active Allergy Reactions Criticality Noted Date Comments Latex 09/20/2003 rash documented as of this encounter (statuses as of 11/01/2024) Medications metFORMIN HCl ER 500 MG Oral [...] as of this encounter (statuses as of 11/01/2024) Active Problems Problem Noted Date Diagnosed Date [...] as of this encounter (statuses as of 11/01/2024) Resolved Problems Problem Noted Date Diagnosed Date [...] as of this encounter (statuses as of 11/01/2024) Immunizations Name Administration Dates Next Due COVID-19 [...] Date Smoking Tobacco: Every Day Cigarettes 0.5 30.4 Started: 1994 Smokeless Tobacco: Never Alcohol Use [...] encounter Miscellaneous Notes * Telephone Encounter - Musa Sr RN - 11/01/2024 10:16 AM ESTRefused Prescriptions: Disp Refills FLUoxetine HCl 40 MG Oral Capsule (PROzac) 90 Cap*1 Sig: Take 1Capsule by mouth in the morning.Refused By: MUSA SR for Refusal: Appt. Required, please call Mark for Refusal Comment: pt told us in 05/2024 she was transferring care elsewhere-- * Telephone Encounter - Musa Sr RN - 11/01/2024 10:14 AM EST See 06/03/24 telemed visit. Pt is transferring care, but then had an appt in 10/03/24 Meds were sent at that time * Telephone Encounter - Sara Cartagena OSA - 11/01/2024 8:51 AM EST Did you pend patient's preferred pharmacy and medication before forwarding?yes Pharmacy: [id number] Pending Prescriptions: Disp Refills FLUoxetine HCl 40 MG Oral Capsule (PROzac)90 Cap*5 Sig: Take 1 Capsule by mouth in the morning. Last Visit: 12/25/2023 (in office), 10/03/2024 (telemedicine) Next Visit: Visit date not found If no future appointments scheduled, and last appointment is greater than a year ago, please schedule patient for a follow-up appointment Last date the medication was ordered: 10.03.24 Is this request for a controlled substance?No Urine Drug Screen:No results found for this or any previous visit. Patient Phone Numbers Labs: Lab Results Component Value Date/Time CREAT 0.7 09/21/2024 03:12 PM CREAT 0.8 07/05/2020 01:36 PM POTASSIUM 4.5 09/21/2024 03:12 PM POTASSIUM 4.2 07/05/2020 01:36 PM TSH 1.87 09/21/2024 03:12 PM TSH 1.21 11/15/2018 11:15 AM LDL 82 10/18/2021 09:40 AM LDL 102 07/05/2020 01:36 PM LDL NOT APPLICABLE 07/05/2020 01:36 PM LDL 160. (H) 11/11/1996 10:17 AM ALT 25 11/15/2021 08:21 AM ALT 15 07/05/2020 01:36 PM HGBA1C 6.6 (H) 07/22/2022 09:11 AM HGBA1C 7.6 (H) 07/05/2020 01:36 PM documented in this encounter Plan of Treatment Upcoming Encounters Date Type Department Care Team ([facility] Contact Info) Description 02/08/2025 1:30 PM EDT Telemedicine Psychiatry [facility] [address] [place] [address] Rebecca Winters CRNP [address] [place] [phone] Health Maintenance Due Date Last Done Comments DISCUSS TOBACCO CESSATION (REFER TO SMARTSET #[id number]) 1978 Pneumococcal Vaccine: Pediatrics (0 to 5 [...] Additional history exists Lipid Panel 10/18/2026 10/18/2021, 110 12/2019, 07/04/2019, Additional history exists HPV (Gardasil) [...] as of this encounter Visit Diagnoses Diagnosis Major depressive disorder, recurrent episode, moderate (HCC) Major depressive disorder, recurrent episode, moderate Anxiety Anxiety state, unspecified documented in this encounter Advance Directives * [...]
--- OUTSIDE RECORDS SUMMARY | 2024-12-23 11:47 | External Medical Summary ---
Author Name Unknown Address Unknown Organization [id number] [address] [place] [address] Laboratory Report Ordering Provider Test Date Status PATRICK GALAN 12/14/2024 12:40:47 Final Observation Date Value Abnormality Reference (Units ) Status WBC, Total 12/14/2024 12:40:47 7.69 4.00-10.8 0 (K/uL) Final RBC 12/14/2024 12:40:47 4.95 3.85-5.15 (M/uL) Final Hemoglobin 12/14/2024 12:40:47 15.2 12.0-15.3 (g/dL) Final HCT 12/14/2024 12:40:47 43.9 36.0-45.2 (%) Final MCV 12/14/2024 12:40:47 88.7 81.5-97.5 (fL) Final MCH 12/14/2024 12:40:47 30.7 27.0-34.0 (pg) Final MCHC 12/14/2024 12:40:47 34.6 32.0-36.0 (g/dL) Final RDW 12/14/2024 12:40:47 11.6 11.5-15.5 (%) Final Platelets 12/14/2024 12:40:47 342 140-400 (K /uL) Final MPV 12/14/2024 12:40:47 8.6 6.6-11.1 ( fL) Final Performing Location [facility] [address] [place] [address]
--- OUTSIDE RECORDS SUMMARY | 2024-12-23 11:47 | External Medical Summary | Summary of Care ---
Author Name Unknown Organization [facility] Address [address] [place] [address] Phone [phone] Care Team Providers Care Calciminer Name Role Phone Juju Bernabe Primary Care Provider Reason for Visit * Reason Comments pre-op exam Encounter Details Date Type Department Care Team (Late st Contact Info) Description 12/08/2024 11:30 AM EDT [facility] [address] [place] [address] Horacio Vogel MD [address] [place] [phone] Pre-op testing*; Abnormal uterine bleeding (AUB); Adenomyosis Allergies Active Allergy Reactions Criticality Noted Date Comments Latex 09/20/2003 rash documented as of this encounter (statuses as of 12/08/2024) Medications metFORMIN HCl ER 500 MG Oral [...] the morning. 90 Tablet 1 5 Active documented as of this encounter (statuses as of 12/08/2024) Active Problems Problem Noted Date Diagnosed Date [...] as of this encounter (statuses as of 12/08/2024) Resolved Problems Problem Noted Date Diagnosed Date [...] as of this encounter (statuses as of 12/08/2024) Immunizations Name Administration Dates Next Due COVID-19 [...] Sign Reading Time Taken Comments Blood Pressure 120/82 12/08/2024 11:24 AM EDT Pulse - - Temperature 36.4 °C (97.5 °F) 12/08/2024 11:24 AM E DT Respiratory Rate - - Oxygen Saturation - - Inhaled Oxygen Concentration - - Weight 93.5 kg (206 lb 3.2 oz) 12/08/2024 11:24 AM EDT Height - - Body Mass Index 34.31 10/06/2024 11:30 AM EST documented in this encounter Progress Notes * Horacio Vogel MD - 12/08/2024 11:59 AM EDT Jayleen Norris is a 44 year old female who presents today for endometrial biopsy to evaluate endometrial cells found on pap out-of-sync with menstrual cycle. She has had no abnormal menses or irregular vaginal bleeding. She has no heavy bleeding or cramping. After informed consent was obtained, cervix visualized and prepped with Betadine. Anterior lip of the cervix single-tooth tenaculum. Pipelle easily introduced into cervical canal and moderate amount of tissue obtained and sent to pathology. Uterus sounded to 9 cm. Patient tolerated procedure well. Minimal bleeding bleeding noted at end of procedure. Imp: Unspecified abnormal pap. Plan: 1. EMB performed. 2. Pending results today's biopsy, further action as needed. Horacio Vogel MD documented in this encounter H&P Notes * Horacio Vogel MD - 12/08/2024 11:45 AM EDT Jayleen Norris is a 44 year old, , Pre-menopausal female, presenting with Abnormal Uterine Bleeding: Onset/Duration: over 1 year Bleeding Pattern: Quantity: Heavy maxi pad every hour. Severity: positive blood clots. Associated signs and symptoms: painful cramping Aggravating factors: None Alleviating factors: None Prior workup/treatment: Transvaginal ultrasound along with endometrial biopsy. Menstrual History: LMP: Patient's last menstrual period was 11/20/2024 (approximate).. Menses have been irregular, every 14 days, with 4 days of flow. Bleeding between periods: Yes. + Dysmenorrhea. + Menorrhagia. PAST MEDICAL HISTORY: Past Medical History: Diagnosis Date Adenomyomatosis of gallbladder 01/07/2022 Cataract bilaterally Cerebral palsy (HCC) congenital Cervical dysplasia 2011 COVID-19 11/12/2022 Dental caries extending into pulp Depressive disorder, not elsewhere classified Gestational diabetes Idiopathic scoliosis Lump or mass in breast cysts in the left breast, referred to Dr. Sanchez, benign Major depressive disorder, recurrent episode, moderate (HCC) 09/02/2022 Migraine 10/27/2011 Tobacco use disorder 09/07/2019 Type 2 diabetes mellitus with hemoglobin A1c goal of less than 7.0% ([facility]) 07/05/2019 PAST SURGICAL HISTORY: Past Surgical History: Procedure Laterality Date COLPSCPY CERVIX W/LOOP ELECT 2011 EGD, FLEXIBLE, DIAGNOSTIC 06/24/2019 erosive gastropathy-EGD/MN EGD, FLEXIBLE, DIAGNOSTIC 12/20/2021 normal bx / ESOPHAGOGASTRODUODENOSCOPY (EGD), FLEXIBLE, TRANSORAL, DIAGNOSTIC performed by Rick Amaya MD at ENDOSCOPY [facility] LAPAROSCOPY; CHOLECYSTECTOMY N/A 01/15/2022 LAPAROSCOPIC CHOLECYSTECTOMY performed by Leana Garcia MD at OR [facility] FAMILY HISTORY: Family History Problem Relation Name Age of Onset Melanoma Mother Seizures Father Diabetes Father Skin cancer Father Breast Cancer Grandmother (Maternal) Diabetes Grandmother (Paternal) Mental illness Grandmother (Paternal) Diabetes Uncle (Paternal) Breast Cancer Aunt (Maternal) Breast Cancer Aunt (Paternal) SOCIAL HISTORY: Social History Tobacco Use Smoking status: Every Day Current packs/day: 0.50 Average packs/day: 0.5 packs/day for 30.5 years (15.2 ttl pk-yrs) Types: Cigarettes Start date: 1994 Smokeless tobacco: Never Vaping Use Vaping status: Never Used Substance Use Topics Alcohol use: No Drug use: No ALLERGIES: Latex ROS: Constitutional: (-) fever chills sweats or weight loss Eyes: (-) negative, no amaurosis fugax, pain, blurred vision, or redness ENT: (-) negative: no headaches, vertigo, hearing loss, sinus, ear, or throat problems Cardiovascular: (-) negative: no chest pain, dyspnea, syncope, or palpitations Pulmonary : (-) negative: no cough, wheezing, or shortness of breath Psychiatry: (-) negative: no depression or anxiety PHYSICAL EXAMINATION: Most Recent Vital Signs: BP 120/82 | Temp 36.4 °C (97.5 °F) | Wt 93.5 kg (206 lb 3.2 oz) | LMP 11/20/2024 (Approximate) | BMI 34.31 kg/m² | BSA 2.07 m² patient appeared to be a well-developed well-nourished 44-year-old white female alert oriented x3 cooperative in no acute distress. She has very poor oral hygiene with many missing teeth the stumps of which are still present. Heart had regular rhythm S1-S2 were normal. Lungs are clear to auscultation and percussion. Trachea was midline there was no cervical adenopathy. Abdomen was soft and nontender. There is a well-healed Pfannenstiel incisional scar. There was no calf tenderness. Pelvic exam revealed a top normal-sized anteverted uterus. Pacu Nurse Bailey L IMAGING: Narrative & Impression EXAM: US PELVIS TRANS-VAGINAL NON-OB - 10/07/2024 HISTORY: AUB TECHNIQUE: Sonographic evaluation of the pelvis using transvaginal approach. COMPARISON: 12/17/2021. FINDINGS: LMP: 08/29/2024 UTERUS: Anteverted measuring 7.3 cm x 3.7 cm x 4.6 cm. Small nabothian cysts are present in the cervix. MYOMETRIUM: Unremarkable ENDOMETRIUM: 3.5 mm in thickness, within normal limits for thickness. The central portion of the endometrium is hypoechoic with an echogenic focus. RIGHT OVARY: 2.2 cm x 1.5 cm x 1.8 cm, 3.1 ml. A 1.1 cm anechoic lesion with low level internal echoes is present in the right ovary. LEFT OVARY: 2.3 cm x 1.5 cm x 2.1 cm, 3.7 ml. Few small follicles are present. MISCELLANEOUS: No significant free fluid. IMPRESSION IMPRESSION: 1. The central portion of the endometrium is hypoechoic with an echogenic focus which could be related to blood products. 2. Small Anechoic lesion with low level internal echoes in the right ovary most likely a hemorrhagic cyst or follicle. Consider follow-up ultrasound in 6-12 weeks. 3. Details as above. IMPRESSION: Jayleen Norris is a 44 year old with patient has had persistent heavy vaginal bleeding with clotting for several years. Patient is status post tubal ligation. Patient requests total abdominal hysterectomy with preservation of both ovaries. PLAN: Total abdominal hysterectomy with preservation of ovaries. documented in this encounter Nursing Notes * Edelmira Hadley CMA - 12/08/2024 11:12 AM EDT Patient present today for preop/EMB. Having hysterectomy with preservation of ovaries. No unprotected intercourse in the last 14 days, BTL. documented in this encounter Plan of Treatment Upcoming Encounters Date Type Department Care Team ([facility] st Contact Info) Description 01/17/2025 11:30 AM EDT Office Visit Gynecology/Obstetrics [facility] [address] [place] [address] Horacio Vogel MD [address] [place] [phone] 02/08/2025 1:30 PM EDT Telemedicine Psychiatry [facility] [address] [place] [address] Rebecca Winters CRNP [address] [place] [address] Pending Results Name Type Priority Associated Diagnoses Date /Time SURGICAL PATHOLOGY Pathology Routine Abnormal uterine bleeding (AUB) 12/08/2024 12:14 PM EDT Scheduled Orders Name Type Priority Associated Diagnoses Orde r Schedule CBC Lab Routine Pre-op testing Ordered: 12/08/2024 Health Maintenance Due Date Last Done Comments DISCUSS TOBACCO CESSATION (REFER TO SMARTSET #7482) 1978 Depression Monitoring 1990 Pneumococcal Vaccine: Pediatrics [...] as of this encounter Visit Diagnoses Diagnosis Pre-op testing- Primary Preoperative examination, unspecified Abnormal uterine bleeding (AUB) Adenomyosis Endometriosis of uterus documented in this encounter [...] Power of Attor danial? No Care Teams Calciminer Relationship Specialty Start Date End Date Juju Bernabe DO [address] [place] [address] [place] [address] PCP - General Internal Medicine 11/15/24 documented as of this encounter"
--- OUTSIDE RECORDS SUMMARY | 2024-12-23 11:47 | External Medical Summary | Summary of Care ---
Author Name Unknown Organization [facility] Address [address] [place] [address] Phone [phone] Care Team Providers Care Value Engineer Name Role Phone Juju Bernabe DO Primary Care Provider Reason for Visit * Reason Onset Date Comments Medication Refill 11/14/2024 Encounter Details Date Type Department Care Team (Late st Contact Info) Description 11/14/2024 Refill Family Medicine [address] [phone] Juju Bernabe DO [address] [place], [place] [address] [address] Dyslipidemia, goal LDL below 130 Allergies Active Allergy Reactions Criticality Noted Date Comments Latex 09/20/2003 rash documented as of this encounter (statuses as of 11/15/2024) Medications metFORMIN HCl ER 500 MG Oral Tablet Extended Release 24 Hour (Glucophage XR)Indications:Typ e 2 diabetes mellitus with hemoglobin A1c goal of less than 7.0% ([facility]) Take 1 Tablet by mouth in the [...] 5 Active hydrOXYzine HCl 25 MG Oral TabletIndications: Anxiety Take 1 tablet by mouth in the morning, 1 tablet by mouth in the afternoon, and 2 tablets by mouth at bedtime. 120 Tablet 3 5 Active Atorvastatin Calcium 80 MG Oral Tablet (Lipitor)Indicatio ns:Dyslipidemia, goal LDL below 130 Take 1 Tablet by mouth in the morning. 90 Tablet 1 5 Active Atorvastatin Calcium 80 MG Oral Tablet (Lipitor)Indicatio ns:Dyslipidemia, goal LDL below 130 Take 1 Tablet by mouth in the morning. 30 Tablet 5 4 11/15/19 25 Discontin ued(Refil l) documented as of this encounter (statuses as of 11/15/2024) Active Problems Problem Noted Date Diagnosed Date [...] as of this encounter (statuses as of 11/15/2024) Resolved Problems Problem Noted Date Diagnosed Date [...] as of this encounter (statuses as of 11/15/2024) Immunizations Name Administration Dates Next Due COVID-19 [...] encounter Miscellaneous Notes * Telephone Encounter - Morena Sr RN - 11/15/2024 8:02 AM EDTPending Prescriptions: Disp Refills Atorvastatin Calcium 80 MG Oral Tablet (Li*90 Tab*1 Sig: Take 1 Tablet by mouth in the morning. * Telephone Encounter - Morena Sr RN - 11/15/2024 8:01 AM EDT Bailee, please call pt to schedule an in clinic visit with Dr Bernabe in the fall( her last 2 visits were telemed) Dr Bernabe script pended * Telephone Encounter - Sara Cartagena OSA - 11/14/2024 3:51 PM EDT Did you pend patient's preferred pharmacy and medication before forwarding?yes Pharmacy: [id number] Pending Prescriptions: Disp Refills Atorvastatin Calcium 80 MG Oral Tablet (L*30 Tab*5 Sig: Take 1 Tablet by mouth in the morning. Last Visit: 12/25/2023 (in office), 10/03/2024 (telemedicine) Next Visit: Visit date not found If no future appointments scheduled, and last appointment is greater than a year ago, please schedule patient for a follow-up appointment Last date the medication was ordered: 05/18/2024 Is this request for a controlled substance?No [...] Upcoming Encounters Date Type Department Care Team ([facility] Contact Info) Description 02/08/2025 1:30 PM EDT Telemedicine Psychiatry [facility] [address] [phone] Rebecca Winters CRNP [address] [place] [address] Health Maintenance Due Date Last Done Comments DISCUSS TOBACCO CESSATION (REFER TO SMARTSET #[id number]) 1978 Pneumococcal Vaccine: Pediatrics (0 to 5 [...] 01/07/2022, 1 09/04/2019, 07/27/2006 HbA1c 01/19/2023 07/22/2022, 0505/2022, 10/18/2021, Additional history exists DTap/Tdap Vaccines (2 [...] as of this encounter Visit Diagnoses Diagnosis Dyslipidemia, goal LDL below 130 Other and unspecified hyperlipidemia documented in this encounter Advance Directives * [...] Power of Attor danial? No Care Teams Value Engineer Relationship Specialty Start Date End Date Juju Bernabe DO [address] [place] [address] [place] [address] PCP - General Internal Medicine 11/15/24 documented as of this encounter
--- OUTSIDE RECORDS SUMMARY | 2024-12-23 11:47 | External Medical Summary | Summary of Care ---
Author Name Unknown Organization [facility] Address [address] [place] [address] Phone [phone] Care Team Providers Care Staging Technician Name Role Phone Juju Bernabe Primary Care Provider [phone] Reason for Visit * Reason Comments pre-op exam Encounter Details Date Type Department Care Team (Late st Contact Info) Description 12/08/2024 11:30 AM EDT Office [facility] [address] [place] [address] Horacio Vogel MD [address] [place] [...] A1c goal of less than 7.0% ([facility]) 07/05/2019 PAST SURGICAL HISTORY: Past Surgical History: Procedure Laterality Date COLPSCPY CERVIX W/LOOP ELECT 2011 EGD, FLEXIBLE, DIAGNOSTIC 06/24/2019 erosive gastropathy-EGD/MN EGD, FLEXIBLE, DIAGNOSTIC 12/20/2021 normal bx / ESOPHAGOGASTRODUODENOSCOPY (EGD), FLEXIBLE, TRANSORAL, DIAGNOSTIC performed by Rick Amaya MD at ENDOSCOPY [facility] LAPAROSCOPY; CHOLECYSTECTOMY N/A 01/15/2022 LAPAROSCOPIC CHOLECYSTECTOMY performed by Leana Garcia MD at OR [facility] FAMILY HISTORY: Family History Problem Relation Name [...] exam revealed a top normal-sized anteverted uterus. Multimedia Services Coordinator Bailey L IMAGING: Narrative & Impression EXAM: [...] Upcoming Encounters Date Type Department Care Team ([facility] st Contact Info) Description 01/17/2025 11:30 AM EDT Office Visit Gynecology/Obstetrics [facility] [address] [place] [address] Horacio Vogel MD [address] [place] [phone] 02/08/2025 1:30 PM EDT Telemedicine Psychiatry [facility] [address] [place] [address] Rebecca Winters CRNP [address] [place] [address] Pending Results Name Type Priority Associated Diagnoses Date /Time SURGICAL PATHOLOGY Pathology Routine Abnormal uterine bleeding (AUB) 12/08/2024 12:14 PM EDT Scheduled Orders Name Type Priority Associated Diagnoses Orde r Schedule CBC Lab Routine Pre-op testing Ordered: 12/08/2024 Health Maintenance Due Date Last Done Comments DISCUSS TOBACCO CESSATION (REFER TO SMARTSET #2789) 1978 Depression Monitoring 1990 Pneumococcal Vaccine: Pediatrics [...] Power of Attor danial? No Care Teams Staging Technician Relationship Specialty Start Date End Date Juju Bernabe DO [address] [place] [address] [place] [address] PCP - General Internal Medicine 11/15/24 documented as of this encounter"
--- OUTSIDE RECORDS SUMMARY | 2024-12-23 11:47 | External Medical Summary | Summary of Care ---
Author Name Unknown Organization [facility] Address [address] [place] [address] Phone [phone] Care Team Providers Care Orthotics Technician Name Role Phone Juju Bernabe Primary Care Provider Encounter Details Date Type Department Care Team (Late st Contact Info) Description 12/19/2024 Orders Only PATIENT PORTAL DO NOT DELETE THIS DEPT [place] [address] Allergies Active Allergy Reactions Criticality Noted Date Comments Latex 09/20/2003 rash documented as of this encounter (statuses as of 12/19/2024) Medications Omeprazole 40 MG Oral Capsule Delayed [...] as of this encounter (statuses as of 12/19/2024) Active Problems Problem Noted Date Diagnosed Date [...] as of this encounter (statuses as of 12/19/2024) Resolved Problems Problem Noted Date Diagnosed Date [...] as of this encounter (statuses as of 12/19/2024) Immunizations Name Administration Dates Next Due COVID-19 [...] f ile documented as of this encounter Plan of Treatment Upcoming Encounters Date Type Department Care Team (Late st Contact Info) Description 01/17/2025 11:30 AM EDT Office Visit Gynecology/Obstetrics [facility] [address] [place] [address] Horacio Vogel MD [address] [place] [address] 02/08/2025 1:30 PM EDT Telemedicine Psychiatry [facility] [address] [place] [address] Rebecca Winters CRNP [address] [place] [address] Health Maintenance Due Date Last Done Comments DISCUSS TOBACCO CESSATION (REFER TO SMARTSET #6108) 1978 Depression Monitoring 1990 Pneumococcal Vaccine: Pediatrics [...] Power of Attor danial? No Care Teams Orthotics Technician Relationship Specialty Start Date End Date Juju Bernabe DO [address] [place] [address] [place] [address] PCP - General Internal Medicine 11/15/24 documented as of this encounter
--- OUTSIDE RECORDS SUMMARY | 2024-12-23 11:47 | External Medical Summary | Summary of Care ---
Author Name Unknown Organization [facility] Address [address] [place] [address] Phone [phone] Care Team Providers Care Sanitation Truck Driver Name Role Phone Juju Bernabe Primary Care Provider [phone] Reason for Visit * Reason Comments Outpatient Testing Encounter Details Date Type Department Care Team (Late st Contact Info) Description 12/14/2024 12:50 PM EDT Laboratory Laboratory, [facility] [address] [place] [phone] [facility] [address] [place] [address] Arrived Allergies Active Allergy Reactions Criticality Noted Date Comments Latex 09/20/2003 rash documented as of this encounter (statuses as of 12/14/2024) Medications metFORMIN HCl ER 500 MG Oral [...] as of this encounter (statuses as of 12/14/2024) Active Problems Problem Noted Date Diagnosed Date [...] as of this encounter (statuses as of 12/14/2024) Resolved Problems Problem Noted Date Diagnosed Date [...] as of this encounter (statuses as of 12/14/2024) Immunizations Name Administration Dates Next Due COVID-19 [...] 01/17/2025 11:30 AM EDT [facility] [address] [place] [address] Horacio Vogel MD [address] [place] [phone] 02/08/2025 1:30 PM EDT Telemedicine Psychiatry [facility] [address] [place] [address] Rebecca Winters CRNP [address] [place] [address] Health Maintenance Due Date Last Done Comments DISCUSS TOBACCO CESSATION (REFER TO SMARTSET #8610) 1978 Depression Monitoring 1990 Pneumococcal Vaccine: Pediatrics [...] Power of Attor danial? No Care Teams Sanitation Truck Driver Relationship Specialty Start Date End Date Juju Bernabe DO [address] [place] [address] [place] [address] PCP - General Internal Medicine 11/15/24 documented as of this encounter
--- OUTSIDE RECORDS SUMMARY | 2024-12-23 11:47 | External Medical Summary | Summary of Care ---
Author Name Unknown Organization [facility] Address [address] [place] [address] Phone [phone] Care Team Providers Care Resistance Welder Name Role Phone Unavailable Primary Care Provider Unavailabl e Reason for Visit * Reason Onset Date Comments Test Results 10/10/2024 Encounter Details Date Type Department Care Team (Late st Contact Info) Description 10/10/2024 Telephone Gynecology/Obstetrics [facility] [address] [place] [address] Charlotte Nathan CRNP [address] [place] [address] Test Results Allergies Active Allergy Reactions Criticality Noted Date Comments Latex 09/20/2003 rash documented as of this encounter (statuses as of 11/02/2024) Medications metFORMIN HCl ER 500 MG Oral [...] as of this encounter (statuses as of 11/02/2024) Active Problems Problem Noted Date Diagnosed Date [...] as of this encounter (statuses as of 11/02/2024) Resolved Problems Problem Noted Date Diagnosed Date [...] as of this encounter (statuses as of 11/02/2024) Immunizations Name Administration Dates Next Due COVID-19 [...] encounter Miscellaneous Notes * Telephone Encounter - Raquel Bonilla RN - 10/10/2024 9:56 AM EST Pt is aware. She states that she is awaiting on her surgery date and pre op to do her hysterectomy. * Telephone Encounter - Charlotte Nathan CRNP - 10/10/2024 9:52 AM EST Pelvic u/s shows possibly ruptured cyst in R ovary; likely not clinically concerning, can repeat u/s in 6-12 weeks to make sure it self resolves. Per Dr Vogel's office note, recommend EMB before hysterectomy. VIC Duarte documented in this encounter Plan of Treatment Upcoming Encounters Date Type Department Care Team ([facility] Contact Info) Description 02/08/2025 1:30 PM EDT Telemedicine Psychiatry [address] [phone] Rebecca Winters CRNP [address] [place] [address] Scheduled Orders Name Type Priority Associated Diagnoses Orde r Schedule US PELVIS TRANS-VAGINAL NON-OB Medical Imaging Routine Cyst of right ovary Expected: 11/21/2024 (Approximate), Expires: 11/07/2025 Health Maintenance Due Date Last Done Comments DISCUSS TOBACCO CESSATION (REFER TO SMARTSET #0312) 1980 Pneumococcal Vaccine: Pediatrics (0 to 5 [...] as of this encounter Visit Diagnoses Diagnosis Cyst of right ovary- Primary Other and unspecified ovarian cyst documented in this encounter Advance Directives * [...]
--- OUTSIDE RECORDS SUMMARY | 2024-12-23 11:47 | External Medical Summary | Summary of Care ---
Author Name Unknown Organization [facility] Address [address] [place] [address] Phone [phone] Care Team Providers Care Sports Agent Name Role Phone Juju Bernabe Primary Care Provider Reason for Visit * Reason Onset Date Comments Test Results 10/10/2024 Encounter Details Date Type Department Care Team ([facility] st Contact Info) Description 10/10/2024 Telephone Gynecology/Obstetrics [facility] [address] [place] [address] BackCharlotte morton CRNP [address] [place] [address] Test Results Allergies Active Allergy Reactions Criticality Noted Date Comments Latex 09/20/2003 rash documented as of this encounter (statuses as of 11/21/2024) Medications metFORMIN HCl ER 500 MG Oral Tablet Extended Release 24 Hour (Glucophage XR)Indications:Typ e 2 diabetes mellitus with hemoglobin A1c goal of less than 7.0% ([facility]) Take 1 Tablet by mouth in the [...] as of this encounter (statuses as of 11/21/2024) Active Problems Problem Noted Date Diagnosed Date [...] as of this encounter (statuses as of 11/21/2024) Resolved Problems Problem Noted Date Diagnosed Date Resolved Date Uncontrolled type 2 diabetes mellitus with hyperglycemia 11/27/2021 10/31/2022 BMI 40.0-44.9, adult 06/20/2019 020 Obesity, Class I, BMI 30.0-3 4.9 (see actual BMI) 10/09/2014 06/04/2017 Overview: Per Obesity protocol #1 Asthma exacerbation 01/31/2013 04/29/20 ADVANCE DIRECTIVE INFORMATION 11/24/2005 06/03/2024 Overview (11/24/2005): No, Advance Directive brochure given to patient. documented as of this encounter (statuses as of 11/21/2024) Immunizations Name Administration Dates Next Due COVID-19 [...] Telephone Encounter - Liliana Mike OSA - 11/21/2024 9:16 AM EDT Pt scheduled for surgery on 12/23 * Telephone Encounter - Raquel Bonilla RN [...] Description 12/08/2024 11:30 AM EDT Office Visit Gynecology/Obstetrics [facility] [address] [address] Horacio Vogel MD [address] [place] [phone] 01/17/2025 11:30 AM EDT Office Visit Gynecology/Obstetrics [facility] [address] [place] [address] Horacio Vogel MD [address] [place] [phone] 02/08/2025 1:30 PM EDT Telemedicine Psychiatry [address] [phone] Rebecca Winters CRNP [address] [place] [address] Scheduled Orders Name Type Priority Associated Diagnoses Orde r Schedule US PELVIS TRANS-VAGINAL NON-OB Medical Imaging Routine Cyst of right ovary Expected: 11/21/2024 (Approximate), Expires: 11/07/2025 Health Maintenance Due Date Last Done Comments DISCUSS TOBACCO CESSATION (REFER TO SMARTSET #6144) 1978 Pneumococcal Vaccine: Pediatrics (0 to 5 [...] Power of Attor danial? No Care Teams Sports Agent Relationship Specialty Start Date End Date Juju Bernabe DO [address] [place] [address] [place] [address] PCP - General Internal Medicine 11/15/24 documented as of this encounter
--- OUTSIDE RECORDS SUMMARY | 2024-12-23 11:47 | External Medical Summary | Summary of Care ---
Author Name Unknown Organization [facility] Address [address] [place] [address] Phone [phone] Care Team Providers Care Hematology Specialist Name Role Phone Unavailable Primary Care Provider Unavailabl e Reason for Visit * Reason Onset Date Comments Advice 10/19/2024 Encounter Details Date Type Department Care Team ([facility] st Contact Info) Description 10/19/2024 Telephone Access Center, [place] [facility] [address] [facility] *DO NOT REMOVE THIS DEPARTMENT* [place], [place] [id number] [address] ADDRESS AVAILABLE Advice Allergies Active Allergy Reactions Criticality Noted Date Comments Latex 09/20/2003 rash documented as of this encounter (statuses as of 10/25/2024) Medications metFORMIN HCl ER 500 MG Oral [...] as of this encounter (statuses as of 10/25/2024) Active Problems Problem Noted Date Diagnosed Date [...] as of this encounter (statuses as of 10/25/2024) Resolved Problems Problem Noted Date Diagnosed Date [...] as of this encounter (statuses as of 10/25/2024) Immunizations Name Administration Dates Next Due COVID-19 [...] encounter Miscellaneous Notes * Telephone Encounter - Suyapa Estevez OSA - 10/19/2024 3:53 PM EST Patient is looking to schedule a sick appointment for Thursday. Please call with next available documented in this encounter Plan of Treatment Upcoming Encounters Date Type Department Care Team (Late st Contact Info) Description 02/08/2025 1:30 PM EDT Telemedicine Psychiatry [facility] [address] [place] [address] Rebecca Winters CRNP [address] [facility] [place] [address] Health Maintenance Due Date Last Done Comments DISCUSS TOBACCO CESSATION (REFER TO SMARTSET #3089) 1978 Pneumococcal Vaccine: Pediatrics (0 to 5 [...] 01/07/2022, 1 09/04/2019, 07/27/2006 HbA1c 01/19/2023 07/22/2022, 05/05/2022, 10/18/2021, Additional history exists DTap/Tdap Vaccines (2 [...]
--- OUTSIDE RECORDS SUMMARY | 2024-12-23 11:48 | External Medical Summary ---
Author Name Unknown Address Unknown Organization K01:LABORATORY [facility] - [address] [place] [address] Laboratory Report Ordering Provider Test Date Status MERCEDES FOWLER 09/21/2024 15:12:53 Final Observation Date Value Abnormality Reference (Units ) Status Ferritin 09/21/2024 15:12:53 56 13-150 (ng /mL) Final Postmenopausal women have hi gher ferritin levels than pre-menopausal women. The above reference interval is based on pre-menopausal women. Performing Location LAB[facility]ORY [facility] - [address] [place] [address]
--- OUTSIDE RECORDS SUMMARY | 2024-12-23 11:48 | External Medical Summary ---
Author Name Unknown Address Unknown Organization K0G:[facility]ORY [facility] - [address] [place] [address] Laboratory Report Ordering Provider Test Date Status MERCEDES FOWLER 09/21/2024 15:12:53 Final Observation Date Value Abnormality Reference (Units ) Status WBC, Total 09/21/2024 15:12:53 10.21 4.00-10.8 0 (K/uL) Final RBC 09/21/2024 15:12:53 4.84 3.85-5.15 (M/uL) Final Hemoglobin 09/21/2024 15:12:53 15.2 12.0-15.3 (g/dL) Final HCT 09/21/2024 15:12:53 44.5 36.0-45.2 (%) Final MCV 09/21/2024 15:12:53 91.9 81.5-97.5 (fL) Final MCH 09/21/2024 15:12:53 31.4 27.0-34.0 (pg) Final MCHC 09/21/2024 15:12:53 34.2 32.0-36.0 (g/dL) Final RDW 09/21/2024 15:12:53 11.7 11.5-15.5 (%) Final Platelets 09/21/2024 15:12:53 310 140-400 (K /uL) Final MPV 09/21/2024 15:12:53 9.3 6.6-11.1 ( fL) Final Performing Location LABORATORY [facility] [place] [address]
--- OUTSIDE RECORDS SUMMARY | 2024-12-23 11:48 | External Medical Summary | Summary of Care ---
Author Name Unknown Organization [facility] Address [address] [place] [address] Phone [phone] Care Team Providers Care Music Executive Name Role Phone Unavailable Primary Care Provider Unavailabl e Reason for Visit * Reason Onset Date Comments Advice 08/10/2024 Encounter Details Date Type Department Care Team ([facility] st Contact Info) Description 08/10/2024 Telephone Family Medicine [address] [phone] Opal Leos MD [address] [place] [address] [place] [address] Advice Allergies Active Allergy Reactions Criticality Noted Date Comments Latex 09/20/2003 rash documented as of this encounter (statuses as of 08/15/2024) Medications metFORMIN HCl ER 500 MG Oral [...] OTHER DAY 16 Tablet 4 4 Active documented as of this encounter (statuses as of 08/15/2024) Active Problems Problem Noted Date Diagnosed Date [...] as of this encounter (statuses as of 08/15/2024) Resolved Problems Problem Noted Date Diagnosed Date [...] as of this encounter (statuses as of 08/15/2024) Immunizations Name Administration Dates Next Due COVID-19 [...] Date Smoking Tobacco: Every Day Cigarettes 0.5 30.2 Started: 1994 Smokeless Tobacco: Never Alcohol Use [...] ages 0-17 years) Not on file 08/10/2024 Education Answer Date Recorded What is [...] Telephone Encounter - Morena Sr RN - 08/15/2024 2:48 PM EST Will discuss at appt * Telephone Encounter - Carli Calzada OSA - 08/10/2024 11:35 AM EST Jayleen Norris called, She just had an appt with Psychology who advised her to contact PCP for medications. Sleep/ anxiety/ depression. Video visit Aug 12 at 920 documented in this encounter Plan of Treatment Upcoming Encounters Date Type Department Care Team (Late st Contact Info) Description 09/13/2024 11:40 AM EST Telemedicine Family Medicine [facility] [place] [place] [address] Perla Ventura CRNP [address] [place] [address] [place] [address] 02/08/2025 1:30 PM EDT Telemedicine Psychiatry [facility] [address] [place] [phone] Rebecca Winters, VIC [address] [place] [address] Health Maintenance Due Date Last Done Comments DISCUSS TOBACCO CESSATION (REFER TO SMARTSET #0047) 1980 Pneumococcal Vaccine: Pediatrics (0 to 5 Years) and At-Risk Patients (6 to 64 Years) (2 of 2 - PCV) 07/27/2007 07/27/2006 HPV/Co-Test 2008 *SPIROMETRY ONCE FOR ASTHMA-ADULT 06/18/2019 Hepatitis B Vaccine (2 of 3 - 19+ 3-dose series) 08/02/2020 07/05/2020 GFR 11/15/2022 11/15/2021, 10/01, 07/05/2020, Additional history exists Mammogram 11/25/2022 11/25/2021, 07/10/2020 Albumin/Creatinine Ratio 12/06/2022 [...] Additional history exists Depression Monitoring 08/10/2025 08/10/2024 Lipid Panel 10/18/2026 10/18/2021, 11/0 12/2019, 07/04/2019, Additional history exists HPV (Gardasil) [...]
--- OUTSIDE RECORDS SUMMARY | 2024-12-23 11:48 | External Medical Summary | Summary of Care ---
Author Name Unknown Organization [facility] Address [address] [place] [address] Phone [phone] Care Team Providers Care Plant Supervisor Name Role Phone Unavailable Primary Care Provider Unavailabl e Reason for Visit * Reason Comments Consultation Encounter Details Date Type Department Care Team ([facility] st Contact Info) Description 10/06/2024 11:30 AM EST Office Visit Gynecology/Obstetrics [facility] [address] [place] [address] Horacio Vogel MD [address] [place] [phone] Adenomyosis* Allergies Active Allergy Reactions Criticality Noted [...] hemoglobin A1c goal of less than 7.0% ([facility]) Tobacco use disorder History of gastritis Menorrhagia with irregular cycle Body mass index (BMI) of 40.0 to 44.9 in adult ([facility]) Adenomyomatosis of gallbladder Gastroparesis RUQ pain Major depressive disorder, recurrent episode, moderate ([facility]) Current Outpatient Medications Medication Sig [...] Description 10/07/2024 11:15 AM EST Imaging Radiology [address] [place] [address] 02/08/2025 1:30 PM EDT Telemedicine Psychiatry [facility] [address] [place] [address] Rebecca Winters CRNP [address] [place] [address] Health Maintenance Due Date Last Done Comments DISCUSS TOBACCO CESSATION (REFER TO SMARTSET #6749) 1980 Pneumococcal Vaccine: Pediatrics (0 to 5 [...]
--- OUTSIDE RECORDS SUMMARY | 2024-12-23 11:48 | External Medical Summary | Summary of Care ---
Author Name Unknown Organization [facility] Address [address] [place] [address] Phone [phone] Care Team Providers Care Cemetery Manager Name Role Phone Unavailable Primary Care Provider Unavailabl e Reason for Visit * Reason Comments Outpatient Testing Encounter Details Date Type Department Care Team (Late st Contact Info) Description 09/21/2024 3:30 PM EST Laboratory Laboratory, [facility] [address] [place] [address] [facility] [address] [place] [address] Type 2 diabetes mellitus with hemoglobin A1c goal of less than 7.0% ([facility]); [employer] Credentials Research Other*[id number]; Abnormal uterine bleeding (AUB) Allergies Active Allergy Reactions Criticality Noted Date Comments Latex 09/20/2003 rash documented as of this encounter (statuses as of 09/21/2024) Medications metFORMIN HCl ER 500 MG Oral [...] 16 Tablet 4 4 Active FLUoxetine HCl 20 MG Oral Capsule (PROzac)Indications :Major depressive disorder, recurrent episode, moderate (HCC),Anxiety Take 1 Capsule by mouth in the morning. 30 Capsule 11 4 Active hydrOXYzine HCl 25 MG Oral TabletIndications:A nxiety Take 1 Tablet by mouth 3 times a day as needed for Anxiety. 90 Tablet 1 4 Active documented as of this encounter (statuses as of 09/21/2024) Active Problems Problem Noted Date Diagnosed Date [...] as of this encounter (statuses as of 09/21/2024) Resolved Problems Problem Noted Date Diagnosed Date [...] as of this encounter (statuses as of 09/21/2024) Immunizations Name Administration Dates Next Due COVID-19 [...] Care Team (Late st Contact Info) Description 10/03/2024 11:00 AM EST Telemedicine Family Medicine [facility] Frederick [address] [place] [address] [place] [phone] Perla Ventura CRNP [address] [place] [address] [place] [id number] 10/06/2024 11:30 AM EST Office Visit Gynecology/Obstetrics [facility] [address] [place] [address] Horacio Vogel MD [address] [place] [phone] 02/08/2025 1:30 PM EDT Telemedicine Psychiatry [facility] [address] [place] [address] Rebecca Winters CRNP [address] [place] [address] Pending Results Name Type Priority Associated Diagnoses Date /Time BASIC METABOLIC PANEL Lab Routine Type 2 diabetes mellitus with hemoglobin A1c goal of less than 7.0% (HCC) 09/21/2024 3:12 PM EST MYCODE SUBSEQUENT ADULT Lab Routine MyCode Research Other*[id number] 09/21/2024 3:12 PM EST TSH WITH FREE T4 IF INDICATED Lab Routine Abnormal uterine bleeding (AUB) 09/21/2024 3:12 PM EST CBC Lab Routine Abnormal uterine bleeding (AUB) 09/21/2024 3:12 PM EST FERRITIN Lab Routine Abnormal uterine bleeding (AUB) 09/21/2024 3:12 PM EST MYCODE SST1 Lab Routine MyCode Research Other*[id number] 09/21/2024 3:12 PM EST MYCODE SST2 Lab Routine MyCode Research Other*[id number] 09/21/2024 3:12 PM EST Health Maintenance Due Date Last Done Comments DISCUSS TOBACCO CESSATION (REFER TO SMARTSET #3291) 1980 Pneumococcal Vaccine: Pediatrics (0 to 5 [...] Monitoring 08/10/2025 08/10/2024 Lipid Panel 10/18/2026 10/18/2021, 12/2019, 07/04/2019, Additional history exists HPV (Gardasil) Vaccine Aged Out No lo nger eligible based on patient's age to complete this topic MENINGOCOCCAL (MENACTRA/MENVEO) Aged Out No longer eligible based on patient's age to complete this topic documented as of this encounter Medical Devices Not on filedocumented as of this encounter Visit Diagnoses Diagnosis Type 2 diabetes mellitus with hemoglobin A1c goal of less than 7.0% ([facility]) MyCode Research Other*[id number] Abnormal uterine bleeding (AUB) documented in this encounter Advance Directives * [...]
--- OUTSIDE RECORDS SUMMARY | 2024-12-23 11:48 | External Medical Summary ---
Author Name Unknown Address Unknown Organization K0G:[facility] [address] [place] [id number] Laboratory Report Ordering Provider Test Date Status GILMA VILLAGOMEZ 09/21/2024 15:12:53 Final Observation Date Value Abnormality Reference (Units ) Status BUN 09/21/2024 15:12:53 10 6-20 (mg/dL) Final Creatinine 09/21/2024 15:12:53 0.7 0.5-1.0 (mg/dL) Final Glomerular filtration rate/1.73 sq M.predicted [Volume Rate/Area] in Serum, Plasma or Blood by Creatinine-based formula (CKD-EPI) 09/21/2024 15:12:53 >90 >=60 (mL/min) Final eGFR is calculated based on the CKD-EPI 2020 equation. Sodium 09/21/2024 15:12:53 137 135-146 (m mol/L) Final Potassium 09/21/2024 15:12:53 4.5 3.5-5.1 (m mol/L) Final Cl 09/21/2024 15:12:53 99 98-107 (mm ol/L) Final CO2 09/21/2024 15:12:53 25 22-32 (mmo l/L) Final Anion gap 09/21/2024 15:12:53 13 7-15 (mmol /L) Final Glucose 09/21/2024 15:12:53 230 Above high normal 70 -120 (mg/dL) Final Calcium 09/21/2024 15:12:53 9.2 8.4-10.2 ( mg/dL) Final Performing Location [facility] [address] [place] [address]
--- OUTSIDE RECORDS SUMMARY | 2024-12-23 11:48 | External Medical Summary | Summary of Care ---
Author Name Unknown Organization [facility] Address [address] [place] [address] Phone [phone] Care Team Providers Care Mobile Qa Tester Name Role Phone Unavailable Primary Care Provider Unavailabl e Encounter Details Date Type Department Care Team (Late st Contact Info) Description 06/03/2024 Telephone Psychiatry Babs Morgan [address] [place] [address] Cuong Daniels CRNP [address] [place] [address] Allergies Active Allergy Reactions Criticality Noted Date Comments Latex 09/20/2003 rash documented as of this encounter (statuses as of 09/02/2024) Medications metFORMIN HCl ER 500 MG Oral Tablet Extended Release 24 Hour (Glucophage XR)Indications: Type 2 diabetes mellitus with hemoglobin A1c goal of less than 7.0% (HCC) Take 1 Tablet by mouth in the morning. 360 Tablet 12/25/2023 Active Omeprazole 40 MG Oral Capsule Delayed Release (PriLOSEC)Indic ations:Black stools,Abdomina l pain, epigastric TAKE 1 CAPSULE BY MOUTH twice daily EVERY MORNING 1 hr before first meal and before bedtime 60 Capsule 5 12/25/2023 Active Atorvastatin Calcium 80 MG Oral Tablet (Lipitor)Indica tions:Dyslipide sabrina, goal LDL below 130 Take 1 Tablet by mouth in the morning. 30 Tablet 5 05/18/2024 Active documented as of this encounter (statuses as of 09/02/2024) Active Problems Problem Noted Date Diagnosed Date [...] as of this encounter (statuses as of 09/02/2024) Resolved Problems Problem Noted Date Diagnosed Date [...] as of this encounter (statuses as of 09/02/2024) Immunizations Name Administration Dates Next Due COVID-19 [...] ages 0-17 years) Not on file 08/10/2024 Comments No Sex and Gender Information Value Date Recorded Sex Assigned at Female 08/10/2024 10:48 AM EST Legal Sex Female 5:14 AM EST Gender Identity Female 08/10/2024 10:48 AM EST Sexual Orientation Straight 08/10/2024 10 :48 AM EST Occupation Industry Job Start Date Job End Date At home Not on file Not on file Not on file documented as of this encounter Miscellaneous Notes * Telephone Encounter - Andra Mosley OSA - 06/03/2024 12:18 PM EDT DOD: Name of caller: Jayleen Relationship to patient: self Call back number: [phone] Reason for call/message for provider: anniversary of sons is fast approaching and emily is having trouble sleeping and coping with is being so close to anniversay of . PCP would not gvie any meds to assist with this. 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 04/28/23 was last appt. documented in this encounter Plan of Treatment Upcoming Encounters Date Type Department Care Team (Late st Contact Info) Description 09/13/2024 11:40 AM EST Telemedicine Family Medicine [address] [place] [phone] Perla Ventura CRNP [address] [place] [address] [place] [id number] 02/08/2025 1:30 PM EDT Telemedicine Psychiatry [address] [phone] Rebecca Winters CRNP [address] [place] [address] Health Maintenance Due Date Last Done Comments DISCUSS TOBACCO CESSATION (REFER TO SMARTSET #0258) 1980 Pneumococcal Vaccine: Pediatrics (0 to 5 [...]
--- OUTSIDE RECORDS SUMMARY | 2024-12-23 11:48 | External Medical Summary ---
Author Name Unknown Address Unknown Organization K01:[facility] [address] [facility] [address] Laboratory Report Ordering Provider Test Date Status MERCEDES FOWLER 09/21/2024 15:12:53 Final Observation Date Value Abnormality Reference (Units ) Status TSH 09/21/2024 15:12:53 1.87 0.27-4.20 (uIU/mL) Final Performing Location [facility] [address] [facility] [address]
--- OUTSIDE RECORDS SUMMARY | 2024-12-23 11:48 | External Medical Summary | Summary of Care ---
Author Name Unknown Organization [facility] Address [address] [facility] [address] Phone [phone] Care Team Providers Care Aircraft Load Controller Name Role Phone Unavailable Primary Care Provider Unavailabl e Reason for Visit * Reason Comments Re-Check Encounter Details Date Type Department Care Team (Late st Contact Info) Description 10/03/2024 11:[address] [place] [address] Perla Ventura [address] [place] [phone] Major depressive disorder, recurrent episode, moderate (HCC)*; Anxiety Allergies Active Allergy Reactions Criticality Noted Date Comments Latex 09/20/2003 rash documented as of this encounter (statuses as of 10/03/2024) Medications metFORMIN HCl ER 500 MG Oral [...] at bedtime. 120 Tablet 3 5 Active FLUoxetine HCl 20 MG Oral Capsule (PROzac)Indication s:Major depressive disorder, recurrent episode, moderate (HCC),Anxiety Take 1 Capsule by mouth in the morning. 30 Capsule 11 4 10/03/19 25 Discontin ued(Refil l) hydrOXYzine HCl 25 MG Oral TabletIndications: Anxiety Take 1 Tablet by mouth 3 times a day as needed for Anxiety. 90 Tablet 1 4 10/03/19 25 Discontin ued(Refil l) documented as of this encounter (statuses as of 10/03/2024) Active Problems Problem Noted Date Diagnosed Date [...] as of this encounter (statuses as of 10/03/2024) Resolved Problems Problem Noted Date Diagnosed Date [...] as of this encounter (statuses as of 10/03/2024) Immunizations Name Administration Dates Next Due COVID-19 [...] f ile documented as of this encounter Progress Notes * Perla Ventura CRNP - 10/03/2024 11:03 AM EST Images from the original note were not included. History of Present Illness Jayleen Norris is a 44 year old female that presents for Re-Check 1 month follow up since restarting Fluoxetine and Hydroxyzine. Fluoxetine tolerating well with no adverse effects. Has noticed some improvement in anxiety/depression. Hydroxyzine has been using TID. Still having trouble sleeping at night. Continues to see therapist. Has a psychiatry appointment in January. Patient Active Problem List Diagnosis Varicose vein of leg Migraine Adjustment disorder with depressed mood Anxiety state Glucose intolerance (impaired glucose tolerance) Dental caries extending into pulp Mild persistent asthma without complication Type 2 diabetes mellitus with hemoglobin A1c goal of less than 7.0% ([facility]) Tobacco use disorder History of gastritis Menorrhagia with irregular cycle Body mass index (BMI) of 40.0 to 44.9 in adult ([facility]) Adenomyomatosis of gallbladder Gastroparesis RUQ pain Major depressive disorder, recurrent episode, moderate ([facility]) Current Outpatient Medications Medication Sig Dispense Refill [...] EVERY OTHER DAY16 Tablet 4 FLUoxetine HCl 20 MG Oral Capsule (PROzac) Take 1 Capsule by mouth in the morning. 30 Capsule 11 hydrOXYzine HCl 25 MG Oral Tablet Take 1 Tablet by mouth 3 times a day as needed for Anxiety. 90 Tablet 1 No current facility-administered medications for this visit. Review of patient's allergies indicates: Allergen Reactions Latex rash Past Medical History: Diagnosis Date Adenomyomatosis of gallbladder 01/07/2022 Cataract bilaterally Cerebral palsy (HCC) congenital Cervical dysplasia 2011 COVID-19 11/12/2022 Dental caries extending into pulp Depressive disorder, not elsewhere classified Gestational diabetes Idiopathic scoliosis Lump or mass in breast cysts in the left breast, referred to Dr. Sanchez, benign Major depressive disorder, recurrent episode, moderate ([facility]) 09/02/2022 Migraine 10/27/2011 Tobacco use disorder 09/07/2019 Type 2 diabetes mellitus with hemoglobin A1c goal of less than 7.0% ([facility]) 07/05/2019 Past Surgical History: Procedure Laterality Date COLPSCPY CERVIX W/LOOP ELECT 2011 EGD, FLEXIBLE, DIAGNOSTIC 06/24/2019 erosive gastropathy-EGD/[place] EGD, FLEXIBLE, DIAGNOSTIC 12/20/2021 normal bx / ESOPHAGOGASTRODUODENOSCOPY (EGD), FLEXIBLE, TRANSORAL, DIAGNOSTIC performed by Rick Amaya MD at ENDOSCOPY [facility] LAPAROSCOPY; CHOLECYSTECTOMY N/A 01/15/2022 LAPAROSCOPIC CHOLECYSTECTOMY performed by Leana Garcia MD at OR [facility] Social History Socioeconomic History Marital status: Single Spouse name: Not on file Number of children: 2 Years of education: Not on file Highest education level: High school graduate Occupational History Occupation: At home Occupation: disabled medical [employer] Tobacco Use Smoking status: Every Day Current packs/day: 0.50 Average packs/day: 0.5 packs/day for 30.3 years (15.1 ttl pk-yrs) Types: Cigarettes Start date: 1994 Smokeless tobacco: Never Vaping Use Vaping status: Never Used Substance and Sexual Activity Alcohol use: No Drug use: No Sexual activity: Yes Partners: Male control/protection: Surgical Comment: BTL Other Topics Concern Not on file Social History Narrative Not on file Social Needs Financial Resource Strain: Low Risk (08/10/2024) Financial Resource Strain Do you have any trouble paying for your medications, or do you think you might in the future? (Adult - for ages 18 years and over): No Does your family have trouble paying for medicine? (Household - for ages 0-17 years): Not on file Food Insecurity: No Food Insecurity (08/10/2024) Food Insecurity Do you need food for this week? (Adult - for ages 18 years and over): No Are you able to get enough food for your family? (Household - for ages 0-17 years): Not on file Does your family need food this week? (Household - for ages 0-17 years): Not on file Do you always have enough food for your family? (Household - for ages 0-17 years): Not on file Transportation Needs: No Transportation Needs (08/10/2024) Transportation Needs Do you have trouble getting a ride to medical visits or work? (Adult - for ages 18 years and over):Not on file Does your family have a hard time getting a ride to doctors’ visits? (Household - for ages 0-17 years): Not on file Has lack of transportation kept you from medical appointments, meetings, work, or from getting things needed for daily living? Check all that apply. (Adult - for ages 18 years and over): No Do you (or your family) have trouble finding or paying for a ride (transportation)? (Household - for ages 0-17 years): Not on file Social Connections: Socially Integrated (08/10/2024) Social Connections How often do you feel lonely or isolated from those around you? (Adult - for ages 18 years and over): Sometimes Housing Stability: Low Risk (08/10/2024) Housing Stability Do you currently live in a long-term or have no steady place to sleep at night? (Adult - for ages 18 years and over): No Do you think you are at risk of becoming homeless? (Adult - for ages 18 years and over): Not on file Does your family worry about paying for your home or becoming homeless? (Household - for ages 0-17 years): Not on file Are you homeless or worried that you might be in the future? (Adult - for ages 18 years and over): No Are you (or your family) homeless or worried that you might be in the future? (Household - for ages0-17 years): Not on file Physical Exam Unable to obtain VS and exam limited as this was as telemed visit. General: A&Ox3 and no distress Head: Normocephalic Lungs: normal breathing pattern Mood: normal speech, normal thought content Assessment and Plan Major depressive disorder, recurrent episode, moderate (HCC) - will increase fluoxetine from 20 mg to 40 mg / discussed if after 1-2 weeks still uncontrolled then to message and can increase to 60 mg daily - FLUoxetine HCl 40 MG Oral Capsule (PROzac); Take 1 Capsule by mouth in the morning. Anxiety - will continue hydroxyzine 25 mg during the day given also increasing prozac, will increase hydroxyzine to 50 mg at bedtime - FLUoxetine HCl 40 MG Oral Capsule (PROzac); Take 1 Capsule by mouth in the morning. - hydrOXYzine HCl 25 MG Oral Tablet; Take 1 tablet by mouth in the morning, 1 tablet by mouth in the afternoon, and 2 tablets by mouth at bedtime. Wrap-Up Follow Up: Return if symptoms worsen or fail to improve. Time: I spent a total of 10-19 minutes (exact time 15 mins) on the date of service in preparation, delivery, and documentation of the care provided to Jayleen Norris excluding any time spent in the performance of separately billed services. Telemedicine: Patient location: HOME. I was in a hospital or clinic location. After connecting through televideo,patient was verified with two unique identifiers. Patient (or authorized legal apprenticeship training representative) was then informed that this was a Telemedicine visit and being conducted confidentially over secure lines. Methods to assure confidentiality were taken. Patient acknowledged consent and understanding of pr ivacy and security of the Telemedicine visit. The patient agreed to participate. Cosigned by Alison Johnson MD at 10/03/2024 9:20 PM EST documented in this encounter Plan of Treatment Upcoming Encounters Date Type Department Care Team (Late st Contact Info) Description 10/06/2024 11:30 AM EST Office Visit [facility]necology[facility] [place] [address] Horacio Vogel MD [address] [place] [phone] 02/08/2025 1:30 PM EDT Telemedicine Psychiatry [facility] [address] [place] [address] Rebecca Winters CRNP [address] [place] [address] Health Maintenance Due Date Last Done Comments DISCUSS TOBACCO CESSATION (REFER TO SMARTSET #6891) 1980 Pneumococcal Vaccine: Pediatrics (0 to 5 [...] Test 2023 Sigmoidoscopy 2023 COVID-19 Vaccine ( - 2023- season) 2024 01/31/2021, 01/03/2021 Influenza Vaccine (FLU [...] Diagnosis Major depressive disorder, recurrent episode, moderate (HCC)- Primary Major depressive disorder, recurrent episode, moderate Anxiety [...]
--- OUTSIDE RECORDS SUMMARY | 2024-12-23 11:48 | External Medical Summary | Summary of Care ---
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 Encounter Details Date Type Department Care Team ([facility] st Contact Info) Description 09/21/2024 2:30 PM EST Office Visit Gynecology/Obstetric s Torres Dodd [address] [place] [address] Charlotte Nathan CRNP [address] [facility] [place] [address] Abnormal uterine bleeding (AUB)* Allergies Active Allergy Reactions Criticality Noted Date [...] Sign Reading Time Taken Comments Blood Pressure 120/72 09/21/2024 2:30 PM EST Pulse - - Temperature - - Respiratory Rate - - Oxygen Saturation - - Inhaled Oxygen Concentration - - Weight 93.4 kg (206 lb) 09/21/2024 2:30 PM EST Height - - Body Mass Index 34.28 11/12/2022 10:30 AM EDT documented in this encounter Patient Instructions * Patient Instructions* Charlotte Nathan CRNP - 09/21/2024 2:51 PM EST Schedule ultrasound for about 7 days after period starts documented in this encounter Progress Notes * Charlotte Nathan CRNP - 09/21/2024 2:41 PM EST HPI: The patient is a 44 year old who presents for abnormal bleeding. Patient's last menstrual period was 08/29/2024 (approximate). Reports irregular cycles since menarche. For the last 15+ years, more irregular and heavier flow. Previous pt of Dr Vogel. Tried OCPs in thepast w/o relief. Periods can occur at the end of the month, then the middle of the next month, then the beginning ofthe following month. Most recent period was 11 days early. Bleeding lasts 3 days and is heavy the entire time. Soaks through an overnight pad in less than an hour, passes golf ball-sized clots. Reports intense associated cramping; this may persist even after her bleeding stops and last until her next period. Cramping can be severe enough to cause her to not be able to get out of bed. No relief with heat, ibuprofen, Tylenol, Midol. Denies breakthrough bleeding. BTL for control. Up to date with pap. Ultimately interested in surgical management, likely a hysterectomy. Last pelvic u/s was in 2021. OB HISTORY: OB History Para Term AB Living 2 2 1 1 2 SAB IAB Ectopic Multiple Live Births 2 # Outcome Date GA Lbr Donte/2nd Weight Sex Type Anes PTL Lv 2 Term 1 Past Medical History: Diagnosis Date Adenomyomatosis of [...] A1c goal of less than 7.0% (HCC) 07/05/2019 Past Surgical History: Procedure Laterality Date COLPSCPY CERVIX W/LOOP ELECT 2011 EGD, FLEXIBLE, DIAGNOSTIC 06/24/2019 erosive gastropathy-EGD/MN EGD, FLEXIBLE, DIAGNOSTIC 12/20/2021 normal bx / ESOPHAGOGASTRODUODENOSCOPY (EGD), FLEXIBLE, TRANSORAL, DIAGNOSTIC performed by Rick Amaya MD at ENDOSCOPY [facility] LAPAROSCOPY; CHOLECYSTECTOMY N/A 01/15/2022 LAPAROSCOPIC CHOLECYSTECTOMY performed by Leana Garcia MD at OR [facility] Current Outpatient Medications Medication Sig Dispense Refill [...] patient's allergies indicates: Allergen Reactions Latex rash ROS EXAM: per HPI PHYSICAL EXAM BP 120/72 | Wt 93.4 kg (206 lb) | LMP 08/29/2024 (Approximate) | BMI 34.28 kg/m² | BSA 2.07 m² General: alert and no distress IMPRESSION: 1. Abnormal uterine bleeding (AUB) (Primary) Recommend labs and imaging, return for EMB. Discussed option of a different hormonal contraceptive,Mirena IUD. Pt not interested in these and wishes to pursue a surgical option. Will schedule f/u EMB and consult with . She is agreeable. - US PELVIS TRANS-VAGINAL NON-OB - TSH WITH FREE T4 IF INDICATED; Future - CBC; Future - FERRITIN; Future Follow Up: Return for EMB and appt w/Dr Lela MCLEAN. | For: EMB and appt w/Dr Lela MCLEAN | Check-out note: Sign release of records for [facility] documented in this encounter Nursing Notes * Alexsandra Chavarria LPN - 09/21/2024 2:33 PM EST Pt here today to discuss periods Having bad cramping during and after periods Passing clots Heavy flow (periods last about 3 days) BTL documented in this encounter Plan of Treatment Upcoming Encounters Date Type Department Care Team (Late st Contact Info) Description 09/21/2024 3:30 PM EST Laboratory Laboratory, [facility] [address] [place] [phone] DoddShaka sabillon [facility] [address] [place] [address] Type 2 diabetes mellitus with hemoglobin A1c goal of less than 7.0% ([facility]); [employer] Other*[id number]; Abnormal uterine bleeding (AUB) 10/03/2024 11:00 AM EST Telemedicine Family Medicine [address] [phone] Perla Ventura [address] [place] [address] 10/06/2024 11:30 AM EST Office Visit [facility]necology[facility]st[facility] s [facility] [place] [address] Horacio Vogel MD [address] [facility] [place] [phone] 02/08/2025 1:30 PM EDT Telemedicine Psychiatry [facility] [address] [place] [address] Rebecca Winters CRNP [address] [place] [address] Pending Results Name Type Priority Associated Diagnoses Date /Time TSH WITH FREE T4 IF INDICATED Lab Routine Abnormal uterine bleeding (AUB) 09/21/2024 3:12 PM EST CBC Lab Routine Abnormal uterine bleeding (AUB) 09/21/2024 3:12 PM EST FERRITIN Lab Routine Abnormal uterine bleeding (AUB) 09/21/2024 3:12 PM EST Scheduled Orders Name Type Priority Associated Diagnoses Orde r Schedule US PELVIS TRANS-VAGINAL NON-OB Medical Imaging Routine Abnormal uterine bleeding (AUB) Ordered: 09/21/2024 TSH WITH FREE T4 IF INDICATED Lab Routine Abnormal uterine bleeding (AUB) Expected: 09/21/2024, Expires: 09/21/2025 CBC Lab Routine Abnormal uterine bleeding (AUB) Expected: 09/21/2024 (Approximate), Expires: 09/21/2025 FERRITIN Lab Routine Abnormal uterine bleeding (AUB) Expected: 09/21/2024, Expires: 09/21/2025 Health Maintenance Due Date Last Done Comments DISCUSS TOBACCO CESSATION (REFER TO SMARTSET #1436) 1978 Pneumococcal Vaccine: Pediatrics (0 to 5 [...] as of this encounter Visit Diagnoses Diagnosis Abnormal uterine bleeding (AUB)- Primary Type 2 diabetes mellitus with hemoglobin A1c goal of less than 7.0% ([facility]) [employer] Other*[id number] Abnormal uterine bleeding (AUB) documented in this [...] have Health Care Power of Attor danial? No"
--- OUTSIDE RECORDS SUMMARY | 2024-12-23 11:48 | External Medical Summary ---
Author Name Unknown Address Unknown Organization K01:LABORATORY [facility] - [address] [place] [address] Laboratory Report Ordering Provider Test Date Status ARIANA MORENO 09/21/2024 15:12:53 Final Observation Date Value Abnormality Reference (Units ) Status MYCODE SPECIMEN-SST 09/21/2024 15:12:53 Freezing of extracted DNA, whole blood and/or serum. Final Performing Location LABORATORY [facility] - [address] [place] [address]
--- OUTSIDE RECORDS SUMMARY | 2024-12-23 11:48 | External Medical Summary ---
Author Name Unknown Address Unknown Organization K01:[facility] [place] [address] [place] [address] Laboratory Report Ordering Provider Test Date Status ARIANA MORENO 09/21/2024 15:12:53 Final Observation Date Value Abnormality Reference (Units ) Status MYCODE SPECIMEN-SST 09/21/2024 15:12:53 Freezing of extracted DNA, whole blood and/or serum. Final Performing Location LABORATORY [facility] - [address] [place] [address]
--- OUTSIDE RECORDS SUMMARY | 2024-12-23 11:49 | External Medical Summary | Summary of Care ---
Author Name Unknown Organization [facility] Address [address] [place] [address] Phone [phone] Care Team Providers Care Refuge Manager Name Role Phone Unavailable Primary Care Provider Unavailabl e Reason for Visit * Reason Onset Date Comments Appointment 08/10/2024 Encounter Details Date Type Department Care Team ([facility] st Contact Info) Description 08/10/2024 Telephone Psychology Babs Morgan [address] [place] [address] Asia Rubin, [facility] [address] [place] [address] Appointment Allergies Active Allergy Reactions Criticality Noted Date Comments Latex 09/20/2003 rash documented as of this encounter (statuses as of 08/10/2024) Medications metFORMIN HCl ER 500 MG Oral [...] as of this encounter (statuses as of 08/10/2024) Active Problems Problem Noted Date Diagnosed Date [...] as of this encounter (statuses as of 08/10/2024) Resolved Problems Problem Noted Date Diagnosed Date [...] as of this encounter (statuses as of 08/10/2024) Immunizations Name Administration Dates Next Due COVID-19 [...] encounter Miscellaneous Notes * Telephone Encounter - Anu Del Toro OSA - 08/10/2024 11:28 AM EST Referral Details after Behavioral Health Intake: Referral: Internal Psych Resource: Per Marika HAHNW recommendation for Psychiatry.Patient scheduled with Provider Singh documented in this encounter Plan of Treatment Upcoming Encounters Date Type Department Care Team (Late st Contact Info) Description 08/12/2024 9:20 AM EST Telemedicine Family Medicine [address] [place] [phone] Perla Ventura CRNP [address] [place] [address] [place] [address] 02/08/2025 1:30 PM EDT Telemedicine Psychiatry [address] [place] [phone] Rebecca Mckinnon, [facility] [address] [place] [address] Health Maintenance Due Date Last Done Comments DISCUSS TOBACCO CESSATION (REFER TO SMARTSET #[id number]) 1980 Pneumococcal Vaccine: Pediatrics (0 to 5 [...]
--- OUTSIDE RECORDS SUMMARY | 2024-12-23 11:49 | External Medical Summary | Summary of Care ---
Author Name Unknown Organization [facility] Address [address] [place] [address] Phone [phone] Care Team Providers Care Line Analyst Name Role Phone Unavailable Primary Care Provider Unavailabl e Reason for Visit * Reason Comments Acute Encounter Details Date Type Department Care Team ([facility] st Contact Info) Description 08/12/2024 9:20 AM EST Telemedicine Family Medicine [address] [phone] Perla Ventura [address] [place] [address] Major depressive disorder, recurrent episode, moderate (HCC)*; Anxiety Allergies Active Allergy Reactions Criticality Noted Date Comments Latex 09/20/2003 rash documented as of this encounter (statuses as of 08/12/2024) Medications metFORMIN HCl ER 500 MG Oral [...] as of this encounter (statuses as of 08/12/2024) Active Problems Problem Noted Date Diagnosed Date [...] as of this encounter (statuses as of 08/12/2024) Resolved Problems Problem Noted Date Diagnosed Date [...] as of this encounter (statuses as of 08/12/2024) Immunizations Name Administration Dates Next Due COVID-19 [...] Upcoming Encounters Date Type Department Care Team ([facility] st Contact Info) Description 02/08/2025 1:30 PM EDT Telemedicine Psychiatry [facility] [address] [place] [address] Rebecca Winters CRNP [address] [place] [address] Health Maintenance Due Date Last Done Comments DISCUSS TOBACCO CESSATION (REFER TO SMARTSET #4066) 1980 Pneumococcal Vaccine: Pediatrics (0 to 5 [...]
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
--- OUTSIDE RECORDS SUMMARY | 2024-12-23 11:49 | External Medical Summary | Summary of Care ---
Author Name Unknown Organization [facility] Address [address] [place] [address] Phone [phone] Care Team Providers Care Junior [employer] D[employer] Name Role Phone Unavailable Primary Care Provider Unavailabl e Reason for Visit * Reason Comments Acute Encounter Details Date Type Department Care Team ([facility] st Contact Info) Description 08/12/2024 9:20 AM EST Telemedicine Family Medicine [address] [phone] Perla Ventura [address] [place] [phone] Major depressive disorder, recurrent episode, moderate (HCC)*; [...] as of this encounter Progress Notes * Awilda Major OSA - 08/12/2024 12:23 PM EST I left message on patient's VM to call me (RE: Scheduling 1 mon ret for Perla Ventura). * Perla Ventura CRNP - 08/12/2024 9:18 AM EST Images from the original note were not included. History of Present Illness Jayleen Norris is a 44 year old female that presents for Acute via telemedicine. Hx of adjustment disorder with depressed mood and anxiety / after reviewing chart appears she was previously on fluoxetine, hydroxyzine, duloxetine, and lorazepam. Has not been taking anything for the past 10 months. Last saw psychiatry in Mar. Did an intake with psychology yesterday. Unable to get in with psychiatry until January of 2025. Recommended making an appointment with PCP office to restart medication. Participating in therapy at [facility] in [place]. Denies any SI or thoughts of self harm. Patient Active Problem List Diagnosis Varicose vein of leg Migraine Adjustment disorder with depressed mood Anxiety state Glucose intolerance (impaired glucose tolerance) Dental caries extending into pulp Mild persistent asthma without complication Type 2 diabetes mellitus with hemoglobin A1c goal of less than 7.0% ([facility]) Tobacco use disorder History of gastritis Menorrhagia with irregular cycle Body mass index (BMI) of 40.0 to 44.9 in adult ([facility]) Adenomyomatosis of gallbladder Gastroparesis RUQ pain Major depressive disorder, recurrent episode, moderate ([facility]) Current Outpatient Medications Medication Sig Dispense Refill [...] BY MOUTH EVERY OTHER DAY16 Tablet 4 No current facility-administered medications for this visit. Review of patient's allergies indicates: Allergen Reactions Latex rash Past Medical History: Diagnosis Date Cataract bilaterally Cerebral palsy (HCC) congenital COVID-19 11/12/2022 Dental caries extending into pulp Depressive disorder, not elsewhere classified Gestational diabetes Idiopathic scoliosis Lump or mass in breast cysts in the left breast, referred to Dr. Sanchez, benign Past Surgical History: Procedure Laterality Date EGD, FLEXIBLE, DIAGNOSTIC 06/24/2019 erosive gastropathy-EGD/MN EGD, FLEXIBLE, DIAGNOSTIC 12/20/2021 normal bx / ESOPHAGOGASTRODUODENOSCOPY (EGD), FLEXIBLE, TRANSORAL, DIAGNOSTIC performed by Rick Amaya MD at ENDOSCOPY [facility] LAPAROSCOPY; CHOLECYSTECTOMY N/A 01/15/2022 LAPAROSCOPIC CHOLECYSTECTOMY performed by Leana Garcia MD at OR [facility] Social History Socioeconomic History Marital status: Single Spouse name: Not on file Number of children: 2 Years of education: Not on file Highest education level: High school graduate Occupational History Occupation: At home Occupation: disabled medical CP Tobacco Use Smoking status: Every Day Current packs/day: 0.50 Average packs/day: 0.5 packs/day for 30.2 years (15.1 ttl pk-yrs) Types: Cigarettes Start date: 1994 Smokeless tobacco: Never Vaping Use Vaping status: Never Used Substance and Sexual Activity Alcohol use: No Drug use: No Sexual activity: Yes Partners: Male Comment: BTL Other Topics Concern Not on [...] Stability Do you currently live in a long term or have no steady place to sleep [...] and no distress Head: Normocephalic Lungs: normal respiratory rate and rhythm Mood: flat affect, normal speech, normal though content Assessment and Plan Major depressive disorder, recurrent episode, moderate (HCC) - FLUoxetine HCl 20 MG Oral Capsule (PROzac); Take 1 Capsule by mouth in the morning. Anxiety - FLUoxetine HCl 20 MG Oral Capsule (PROzac); Take 1 Capsule by mouth in the morning. - hydrOXYzine HCl 25 MG Oral Tablet; Take 1 Tablet by mouth 3 times a day as needed for Anxiety. - will restart Prozac daily and hydroxyzine as needed - discussed possible side effects / will return in 1 month and as long as tolerating can always increase dose as she was previously on 60 mg daily of prozac - needs to keep appointment with psychiatry Wrap-Up Follow Up: Return in about 1 month (around 09/12/2024). Time: I spent a total of 10-19 [...] two unique identifiers. Patient (or authorized legal insurance healthcare representative) was then informed that this was a Telemedicine visit and being conducted confidentially over secure lines. Methods to assure confidentiality were taken. Patient acknowledged consent and understanding of pr ivacy and security of the Telemedicine visit. The patient agreed to participate. Cosigned by Alison Johnson MD at 08/12/2024 11:29 AM EST documented in this encounter Plan of Treatment Upcoming Encounters Date Type Department Care Team ([facility] st Contact Info) Description 02/08/2025 1:30 PM EDT Telemedicine Psychiatry [facility] [address] [place] [phone] Rebecca Winters CRNP [address] [place] [address] Health Maintenance Due Date Last Done Comments DISCUSS TOBACCO CESSATION (REFER TO SMARTSET #2386) 1978 Pneumococcal Vaccine: Pediatrics (0 to 5 [...] Monitoring 08/10/2025 08/10/2024 Lipid Panel 10/18/2026 10/18/2021, 110 12/2019, 07/04/2019, [...]
--- OUTSIDE RECORDS SUMMARY | 2024-12-23 11:49 | External Medical Summary | Summary of Care ---
Author Name Unknown Organization [facility] Address [address] [place] [address] Phone [phone] Care Team Providers Care Driver Trainee Name Role Phone Unavailable Primary Care Provider Unavailabl e Reason for Visit * Reason Comments eRx-Medication Refill Encounter Details Date Type Department Care Team ([facility] st Contact Info) Description 07/12/2024 Refill Neurology [facility] [address] [place] [address] [facility]ner [facility] [address] [facility] [phone] Allergies Active Allergy Reactions Criticality Noted Date Comments Latex 09/20/2003 rash documented as of this encounter (statuses as of 07/13/2024) Medications metFORMIN HCl ER 500 MG Oral Tablet Extended Release 24 Hour (Glucophage XR)Indications:Typ e 2 diabetes mellitus with hemoglobin A1c goal of less than 7.0% ([facility]) Take 1 Tablet by mouth in the morning. 360 Tablet 12/25/19 24 Active Omeprazole 40 MG Oral Capsule Delayed Release (PriLOSEC)Indicati ons:Black stools,Abdominal pain, epigastric TAKE 1 CAPSULE BY MOUTH twice daily EVERY MORNING 1 hr before first meal and before bedtime 60 Capsule 5 12/25/19 24 Active Atorvastatin Calcium 80 MG Oral Tablet (Lipitor)Indicatio ns:Dyslipidemia, goal LDL below 130 Take 1 Tablet by mouth in the morning. 30 Tablet 5 05/18/20 24 Active Nurtec 75 MG Oral Tablet Disintegrating (Rimegepant Sulfate) TAKE 1 TABLET BY MOUTH EVERY OTHER DAY 16 Tablet 4 07/13/20 24 Active Nurtec 75 MG Oral Tablet Disintegrating (Rimegepant Sulfate) Take 1 tablet every other day 15 Tablet 1 05/17/20 24 024 Discontinued documented as of this encounter (statuses as of 07/13/2024) Active Problems Problem Noted Date Diagnosed Date [...] as of this encounter (statuses as of 07/13/2024) Resolved Problems Problem Noted Date Diagnosed Date [...] as of this encounter (statuses as of 07/13/2024) Immunizations Name Administration Dates Next Due COVID-19 [...] Date Smoking Tobacco: Every Day Cigarettes 0.5 30.1 Started: 1996 Smokeless Tobacco: Never Alcohol Use Standard Drinks/Week Comments No 0 (1 standard drink = 0.6 oz pur e alcohol) PHQ-2 Answer Date Recorded PHQ-2 Score 17 07/05/2020 Comments No Sex and Gender Information Value Date Recorded Sex Assigned at Not on file Legal Sex Female 5:14 AM EST Gender Identity Not on file Sexual Orientation Not on file Occupation Industry Job Start Date Job End Date At home Not on file Not on file Not on file documented as of this encounter Miscellaneous Notes * Telephone Encounter - Kailey Joyner PA-C - 07/13/2024 2:33 PM ESTSigned Prescriptions: Disp Refills Nurtec 75 MG Oral Tablet Disintegrating (R*16 Tab*4 Sig: TAKE 1 TABLET BY MOUTH EVERY OTHER DAY Authorizing Provider: KAILEY JOYNER * Telephone Encounter - Manasa Arizmendi LPN - 07/13/2024 2:19 PM ESTPending Prescriptions: Disp Refills Nurtec 75 MG Oral Tablet Disintegrating [P*16 Tab*1 Sig: TAKE 1 TABLET BY MOUTH EVERY OTHER DAY * Telephone Encounter - Matthias Brown [facility] - 07/13/2024 2:13 PM ESTPending Prescriptions: Disp Refills Nurtec 75 MG Oral Tablet Disintegrating [P*16 Tab*1 Sig: TAKE 1TABLET BY MOUTH EVERY OTHER DAY documented in this encounter Plan of Treatment Upcoming Encounters Date Type Department Care Team (Late st Contact Info) Description 08/10/2024 11:00 AM EST Telemedicine Psychology Babs Morgan [address] [place] [phone] Asia Rubin LCSW [address] [place] [phone] Health Maintenance Due Date Last Done Comments DISCUSS TOBACCO CESSATION (REFER TO SMARTSET #7691) 1980 Pneumococcal Vaccine: Pediatrics (0 to 5 Years) and At-Risk Patients (6 to 64 Years) (2 of 2 - PCV) 07/27/2007 07/27/2006 HPV/Co-Test 2008 *SPIROMETRY ONCE FOR ASTHMA-ADULT 06/18/2019 Hepatitis B Vaccine (2 of 3 - 19+ 3-dose series) 08/02/2020 07/05/2020 Depression Monitoring 07/05/2021 07/05/2020 GFR 11/15/2022 11/15/2021, 10/01, 07/05/2020, Additional [...] 01/21/2025 01/22/2024, , 06/06/2019, Additional history exists Lipid Panel 10/18/2026 10/18/2021, [...]
[2024-12-23] MEDS: cefOXitin 2,000 MG in DEXTROSE 5 % MINI-B 50 ML IV SCH (12:00)
[2024-12-23] MEDS ORDERED: NALOXONE HCL 0.4 MG/1 ML VIAL/CARP IV PRN (12:18)
[2024-12-23] MEDS ORDERED: ONDANSETRON INJ 2 MG/ML 2 ML VIAL IV PRN (12:18)
[2024-12-23] MEDS ORDERED: ePHEDrine sulfate 50 MG/ML AMP IV PRN (12:18)
[2024-12-23] MEDS ORDERED: NALBUPHINE HCL INJ 10 MG/ML AMP IV PRN (12:18)
[2024-12-23] MEDS ORDERED: NALOXONE HCL 0.08 MG in SYRINGE 1.8 ML IV PRN (12:18)
[2024-12-23] MEDS ORDERED: MoRPHine SULFATE 2 MG/ML CARP IV PRN (12:18)
[2024-12-23] MEDS ORDERED: diphenhydrAMINE 50 MG/ML VIAL IV PRN (12:18)
[2024-12-23] MEDS ORDERED: PROMETHAZINE 6.25 MG/50.25 ML BAG IV PRN (12:18)
[2024-12-23] MEDS ORDERED: NALOXONE HCL 1 MG in SODIUM CHLORIDE 0.9% 1,000 ML IV PRN (12:18)
[2024-12-23] MEDS ORDERED: NO NARCOTICS OR SEDATIVES SCH (12:30)
[2024-12-23] MEDS ORDERED: DC INTRASPINAL MORPHINE SCH (12:30)
[2024-12-23] MEDS ORDERED: PHENYLEPHRINE 100MCG/ML 5ML SYR ONE (12:35)
[2024-12-23] MEDS ORDERED: ePHEDrine sulfate 50 MG/5 ML SYR ONE (12:35)
[2024-12-23] MEDS ORDERED: SUGAMMADEX SODIUM 200 MG/2 ML VIAL IV ONE (13:52)
--- NOTE | 2024-12-23 14:31 | Operative Report ---
Post Operative Report Pre & Post Diagnosis Operation Date: 12/23/24 10:40 Pre-Op Diagnosis: Adenomyosis, abmormal uterine bleeding Post-Op Diagnosis: Adenomyosis, abmormal uterine bleeding I identified the patient and participated in the time-out.: Yes Procedure Operation Date: 12/23/24 10:40 Actual Procedures p Total Abdominal Hysterectomy - Horacio Vogel MD Surgeon Horacio Vogel MD Yardage Caller DR Ho Estimated Blood Loss 40 Findings Consistent with Post-Op Diagnosis Normal tubes and ovaries. Status post tubal ligation. Specimens Uterus and cervix Drains Herbert drain with safety pin and vaginal cuff Complications None Indications Heavy vaginal bleeding. Adenomyosis. Pelvic pain. Description of Procedure Patient was brought to the OR correctly identified by armband and conversation. Spinal narcotics were administered. Patient was positioned on the OR table. Vaginal prep was performed. Rivera catheter was inserted aseptically into the bladder connected to gravity drainage. Compression stockings were applied. Lower abdomen was painted with an alcohol-based sterilizing solution. Timeout was taken. Then an incision was made through her previous Pfannenstiel incisional scar. The incision was carried down to the fascia by blunt and sharp dissection. The fascia was incised transversely. The recti muscles were se parated in the midline. Peritoneum was carefully raised and entered. An Roly'Jr-O'Roderick self retraining retractor was inserted into the incision. Several laparotomy packs were used to pack the intestines out of the operative field. At this time normal tubes and ovaries were seen. Both tubes were status post tubal ligation. There was a some adhesions of the bowel through the posterior leaf of the broad ligament on the left side this was taken down bluntly. A double-tooth tenaculum was used to grasp the uterus. The round ligaments were clamped with a Twyla approximately. Then distantly sewn with a transfixion suture chromic catgut intact. And proximal to this suture was a suture of silk. Posterior leaf of the broad ligaments were punched through bluntly on each side. The ovarian ligament and tube was clamped close to the fundus of the uterus. And distal to the fundus of the uterus. The tissue was cut between the 2 clamps. Distally the pedicle was sutured with a transfixion suture chromic catgut which was tagged. And then proximal to the suture was a plane suture of silk. The uterine vessels on each side were skeletonized. Curved Alfredo was used to clamp the uterine vessels close to the fundus of the uterus. Pedicle was then cut. Then doubly ligated with a Chromic Gut suture. And stumps were cauterized. The bladder was advanced out of the operative field after making an incision above the vesicouterine fold. Using a blunt pusher to push the bladder off the cervix. Then a curved Alfredo was used to slide off the cervix on either side and clamped the cardinal ligaments. Cardinal ligaments were then cut with a stump. Sutured with a Chromic Gut suture. This was done in 2 steps because of the length of the cardinal ligament. Following this the cervix was shelled out with electrocautery thus excising the surgical specimen consisting of uterus and cervix. The angles of the vaginal cuff were tagged with a straight Alfredo on each end. Then a Chromic Gut suture was used to anchor the angles of the vaginal cuff to the stumps of the cardinal ligament by having the suture go through the vaginal mucosa. Then the anterior and posterior vaginal curtis were approximated with a [id number] suture of chromic catgut which was anchored in the cuff on each angle. The midportion of the cuff was whipstitched open with a Chromic Gut suture. Then an Allis was used to grasp the posterior vaginal cuff. And uterosacral ligaments were plicated with a heavy-duty Vicryl. This further elevated the vaginal cuff. [place] drain with a safety plan was then placed into the vaginal cuff. And the proximal end into the cul-de-sac. The round ligaments were brought down and tied into the tags on the vaginal cuff on either side. Thus further elevating and supporting the vaginal cuff following this the pelvis was reperitonealized with 3-0 chromic approximating the peritoneum front to back bearing the stumps of the round ligaments on either side. Pelvis was then washed with with normal saline there was no bleeding noted at this time. Hemostasis was excellent estimated blood loss was 40 mL. Packs were removed back count was normal. Retractor was removed. Careful anatomical approximation of the anterior abdominal wall was performed. Peritoneum was closed with a continuous interlocking suture of chromic catgut. Recti muscles were approximated with kdngql-in-ifgke suture of chromic catgut. Fascia was closed with continuous interlocking suture of Vicryl on each side tied in the midline. Subcu was approximated with a running plain. The skin edges were approximated with staple clips. Patient Toller procedure well left the OR in good condition. I attest to the content of the Intraoperative Record and any orders documented therein. Any exceptions are noted below. Dr. Ho who assisted me with the surgery. His assistance was necessary to provide adequate exposure and to provide safe surgery for this patient.
[2024-12-23] MEDS ORDERED: bisacodyL 10 MG SUPP PR PRN (14:32)
[2024-12-23] MEDS ORDERED: SENNA 8.6 MG TAB PO PRN (14:32)
[2024-12-23] MEDS ORDERED: MAGNESIUM HYDROXIDE SUSP 30 ML UDC PO PRN (14:32)
--- NOTE | 2024-12-23 15:45 | Anesthesiology Progress Note ---
Date of Service December 23, 2024 Anesthesia Post Procedure Vital Signs Vital Signs: Temp Pulse Pulse Resp BP Pulse Ox O2 Del Method 12/23/24 15:35 67 9 L 103/68 94 Room Air 12/23/24 15:25 66 14 121/72 97 Room Air 12/23/24 15:15 62 18 115/65 95 Oxymask 12/23/24 15:05 66 17 118/71 94 Oxymask 12/23/24 14:55 66 18 118/69 99 Oxymask 12/23/24 14:45 62 15 122/90 99 Oxymask 12/23/24 14:35 62 19 119/70 98 Oxymask 12/23/24 14:27 97.5 F L 75 12 131/82 98 Oxymask 12/23/24 09:25 Room Air 12/23/24 09:22 97.9 F 59 L 18 121/90 98 Room Air O2 Flow Rate 12/23/24 15:35 0 12/23/24 15:25 0 12/23/24 15:15 2 12/23/24 15:05 2 12/23/24 14:55 2 12/23/24 14:45 2 12/23/24 14:35 4 12/23/24 14:27 4 12/23/24 09:25 12/23/24 09:22 Transfer of Care Handoff Completed per policy Notes Mental Status: alert / awake / arousable and participated in evaluation Patient Amnestic to Procedure: Yes Nausea / Vomiting: adequately controlled Pain: adequately controlled Airway Patency, RR, SpO2: stable & adequate BP & HR: stable & adequate Hydration State: stable & adequate Neuraxial Anesthesia: was administered and sensory block is resolving Anesthetic Complications: no major complications apparent and Pt Satisfied with anesthetic care
[2024-12-23] MEDS: KETOROLAC 30 MG/ML VIAL IV PRN (17:02)
[2024-12-23] MEDS: MoRPHine SULFATE PF 1 MG/ML 10 ML AMP/VIAL INT SPINAL ONE (17:07)
[2024-12-23] MEDS ORDERED: PHARMACY GLYCEMIC MGMT CONSULT PRN (20:13)
[2024-12-23] MEDS ORDERED: ALBUTEROL HFA 8 GM INHALER INH PRN (20:22)
[2024-12-23] MEDS ORDERED: hydrOXYzine HCl 25 MG TAB PO SCH (21:00)
[2024-12-23] MEDS ORDERED: Nursing to Pharmacy Communication SCH (21:45)
[2024-12-23] MEDS: PANTOprazole 40 MG TAB PO SCH (22:27)
[2024-12-23] MEDS: hydrOXYzine HCl 25 MG TAB PO SCH (22:45)
[2024-12-23] MEDS: RIMEGEPANT SULFATE 75 MG OD TAB PO ONE (22:54)
[2024-12-24] MEDS: INSULIN ASPART PER UNIT CHARGE SC SCH ×2 (00:49→03:12)
[2024-12-24] MEDS: LANTUS PER UNIT CHARGE SC SCH ×2 (00:55→21:31)
[2024-12-24] MEDS ORDERED: PROMETHAZINE 25 MG/51 ML BAG IV PRN (06:18)
[2024-12-24] MEDS ORDERED: MEPERIDINE HCL 25 MG/ML CARP/VIAL IV PRN (06:18)
[2024-12-24] MEDS ORDERED: ONDANSETRON INJ 2 MG/ML 2 ML VIAL IV PRN (06:18)
[2024-12-24] MEDS ORDERED: LANTUS PER UNIT CHARGE SC ONE (07:15)
[2024-12-24 07:38] LABS: Basophils # (auto) 0.03 K/uL (0.00-0.20); Basophils % (auto) 0.2 %; Eosinophils # (auto) 0.03 K/uL (0.00-0.50); Eosinophils % (auto) 0.2 %; Hemoglobin 13.1 g/dl (12.0-16.0); Immature Granulocytes # (auto) 0.04 K/uL (0.01-0.20); Immature Granulocytes % (auto) 0.3 %; Lymphocytes # (auto) 2.19 K/uL (1.20-3.40); Lymphocytes % (auto) 17.5 %; Mean Corpuscular Hemoglobin 30.8 pg (25.0-34.0); Mean Corpuscular Hgb Conc 34.5 g/dL (32.0-36.0); Mean Corpuscular Volume 89.4 fL (80.0-100.0); Mean Platelet Volume 9.2 fL (9.4-12.4); Monocytes # (auto) 0.96 K/uL (0.11-0.59); Monocytes % (auto) 7.6 %; Neutrophils % (auto) 74.2 %; Platelet Count 313 K/uL (130-400); RDW Coefficient of Variation 11.8 % (11.5-14.5); Red Blood Count 4.25 M/uL (4.20-5.40); White Blood Count 12.55 K/ul (4.8-10.8)
[2024-12-24 07:54] LABS: BUN Creatinine Ratio 21.2 (10-20); Calcium 8.1 mg/dl (8.6-10.3); Creatinine Clr Calc Pharmacy 121.1 ml/min; Potassium 4.1 mmol/L (3.5-5.1)
--- NOTE | 2024-12-24 08:51 | Obstetrical Progress Note ---
Date of Service December 24, 2024 Assessment & Plan Admission and Anticipated Discharge Date Admission Date: December 23, 2024 Subjective abdomen soft and non tender bowel sounds normal bandage removed incision is clean and dry no calf tenderness vaginal bleeding scant hgb 13.1 Results & Data Vital Signs (Past 12 Hours) Vital Signs Temp Pulse Resp BP Pulse Ox O2 Del Method 12/24/24 06:19 112/67 12/24/24 03:30 18 96 12/24/24 03:24 36.8 C 62 18 96/62 L 96 Room Air 12/24/24 00:35 20 96 12/24/24 00:35 Room Air 12/24/24 00:35 36.7 C 72 20 94/65 L 96 Room Air 12/23/24 22:12 20 96
[2024-12-24] MEDS: hydrOXYzine HCl 25 MG TAB PO SCH (08:58)
[2024-12-24] MEDS: FLUoxetine HCL 20 MG CAP PO SCH (08:58)
[2024-12-24] MEDS: ATORVASTATIN 40 MG TAB PO SCH (08:58)
--- OUTSIDE RECORDS SUMMARY | 2024-12-24 08:58 | External Medical Summary | Summary of Care ---
Author Name Unknown Organization [facility] Address [address] [place] [address] Phone [phone] Care Team Providers Care Manager Of Recruiting Name Role Phone Juju Bernabe DO Primary Care Provider Encounter Details Date Type Department Care Team (Late st Contact Info) Description 12/23/2024 Orders Only Gynecology/Obstetrics [facility] [address] [place] [address] Horacio Vogel MD [address] [place] [phone] Allergies Active Allergy Reactions Criticality Noted Date Comments Latex 09/20/2003 rash documented as of this encounter (statuses as of 12/23/2024) Medications Omeprazole 40 MG Oral Capsule Delayed [...] as of this encounter (statuses as of 12/23/2024) Active Problems Problem Noted Date Diagnosed Date [...] as of this encounter (statuses as of 12/23/2024) Resolved Problems Problem Noted Date Diagnosed Date [...] as of this encounter (statuses as of 12/23/2024) Immunizations Name Administration Dates Next Due COVID-19 [...] 01/17/2025 11:30 AM EDT Office Visit Gynecology/Obstetrics [address] [place] [address] Horacio Vogel MD [address] [place] [phone] 02/08/2025 1:30 PM EDT Telemedicine Psychiatry [facility] [address] [place] [address] Rebecca Winters CRNP [address] [place] [address] Health Maintenance Due Date Last Done Comments DISCUSS TOBACCO CESSATION (REFER TO SMARTSET #1325) 1978 Depression Monitoring 1990 Pneumococcal Vaccine: Pediatrics [...] 2023 Sigmoidoscopy 2023 COVID-19 Vaccine ( - season) 2024 01/31/2021, 01/03/2021 Cervical Cancer Screening [...] Not on filedocumented as of this encounter Procedures Procedure Name Priority Date/Time Associated Diagnosis Comments CHEMISTRY-OUTSIDE Routine 12/23/2024 documented in this encounter Results * CHEMISTRY-OUTSIDE (12/23/2024) Not all results display below - see scan for full detail OUTSIDE LAB (SEE SCANNED REPORT) Comment:SEE SCAN: CBCD, BSG CREATININE OUTSIDE L AB (SEE SCANNED REPORT) EGFR OUTSIDE LA B (SEE SCANNED REPORT) POTASSIUM OUTSIDE LA B (SEE SCANNED REPORT) GLUCOSE OUTSIDE LA B (SEE SCANNED REPORT) HOURS FASTING OUTSID E LAB (SEE SCANNED REPORT) TRIGLYCERIDES-OUT SIDE LAB OUTSIDE LAB (SEE SCANNED REPORT) CHOLESTEROL-OUTSI DE LAB OUTSIDE LAB (SEE SCANNED REPORT) HDL-OUTSIDE LAB OUTS [facility] (SEE SCANNED REPORT) CHOL/HDL RATIO-OUTSIDE LAB OUTSIDE LA B (SEE SCANNED REPORT) LDL (CALCULATED)-OUTS [facility] OUTSIDE LAB (SEE SCANNED REPORT) LDL (DIRECT MEASURE)-OUTSIDE LAB OUTSIDE LAB (SEE SCANNED REPORT) HEMOGLOBIN, B9U-BSCJHZY LAB OUTSIDE LAB (SEE SCANNED REPORT) PHOSPHORUS-OUTSID E LAB OUTSIDE LAB (SEE SCANNED REPORT) PTH-OUTSIDE LAB OUTS [facility] (SEE SCANNED REPORT) MICROALBUMIN RATIO-OUTSIDE LAB OUTSIDE LA B (SEE SCANNED REPORT) PROTEIN, UA-OUTSIDE LAB OUTSIDE LAB (SEE SCANNED REPORT) HGB 14.7 12.0 - 16.0 G/DL OUTSIDE LAB (SEE SCANNED REPORT) 12/23/2024 us Horacio Vogel MD LABORATORY Final Resul t OUTSIDE LAB (SEE SCANNED REPORT) documented in this encounter Advance Directives * [...] Power of Attor danial? No Care Teams Manager Of Recruiting Relationship Specialty Start Date End Date Juju Bernabe DO [address] [place] [address] [place] [address] PCP - General Internal Medicine 11/15/24 documented as of this encounter
[2024-12-24] MEDS: FLUTICASONE FUROATE 100MCG 14 PUFFS/INHALER INH SCH (08:59)
[2024-12-24] MEDS ORDERED: PANTOprazole 40 MG TAB PO SCH (09:00)
[2024-12-24 09:56] LABS: Estimated Average Glucose 209 mg/dl; Hemoglobin A1C 8.9 % (4.5-5.6)
--- NOTE | 2024-12-24 10:27 | Pharmacy Report ---
Pharmacy Glycemic Short Note 2 - Date of Service December 24, 2024 - Glycemic Short BSG Results (Last 24 hours): 12/23/24 12/23/24 12/23/24 14:30 19:58 22:59 Glucose POC Glucose 200 H 283 H 254 H 12/24/24 12/24/24 12/24/24 03:10 06:45 07:22 Glucose 118 H POC Glucose 213 H 111 H OUTPATIENT ANTIDIABETIC REGIMEN: * Metformin 500mg PO Daily * A1c 8.9% 12/24/24 ASSESSMENT: * 44 yo POD1 hysterectomy. Type 2 DM on Metformin alone at home, uncontrolled. Pt had 1 dose of Dexamethasone 4mg IV yesterday. No further steroids ordered. * Blood sugar back to goal today after 23 units of insulin yesterday/overnight (10 units basal, 13 bolus). * Continue NovoLog, and place Lantus on as PRN. * Could resume home metformin tomorrow if patient tolerates diet. PLAN FOR INPATIENT GLYCEMIC CONTROL: * Hold outpatient oral diabetes medications, possibly resume metformin tomorrow. * Basal insulin * Lantus 10 units SQ HS for BSG 180mg/dl or greater * Bolus insulin * NovoLog per scale ACHS or Q6hrs while NPO * Goal Range: Low 110 mg/dL - High 140 mg/dL * Correction Factor: 30 mg/dL/unit * Nutritional / Prandial insulin per carb ratio of 1 unit per 10 grams CHO consumed
[2024-12-24] MEDS: oxyCODONE/ACETAMINOPHEN 5mg/325mg TAB PO PRN (12:44)
[2024-12-24 20:26] VITALS: RESP 18
[2024-12-24] MEDS: IBUPROFEN 600 MG TAB PO PRN (23:07)
[2024-12-25 06:55] LABS: Basophils # (auto) 0.03 K/uL (0.00-0.20); Basophils % (auto) 0.3 %; Hematocrit (blood only) 35.7 % (37.0-47.0); Immature Granulocytes # (auto) 0.03 K/uL (0.01-0.20); Immature Granulocytes % (auto) 0.3 %; Lymphocytes % (auto) 18.9 %; Mean Corpuscular Hemoglobin 30.2 pg (25.0-34.0); Mean Corpuscular Hgb Conc 33.6 g/dL (32.0-36.0); Mean Corpuscular Volume 89.9 fL (80.0-100.0); Mean Platelet Volume 9.2 fL (9.4-12.4); Monocytes % (auto) 7.3 %; Neutrophils # (auto) 6.87 K/uL (1.40-6.50); Neutrophils % (auto) 72.2 %; Platelet Count 277 K/uL (130-400); RDW Coefficient of Variation 11.9 % (11.5-14.5); RDW Standard Deviation 38.3 fL (36.4-46.3); Red Blood Count 3.97 M/uL (4.20-5.40); White Blood Count 9.53 K/ul (4.8-10.8)
[2024-12-25 07:16] LABS: Calcium 7.8 mg/dl (8.6-10.3); Creatinine Clr Calc Pharmacy 133.2 ml/min
[2024-12-25] MEDS ORDERED: LANTUS PER UNIT CHARGE SC SCH (09:00)
--- NOTE | 2024-12-25 10:08 | Obstetrical Progress Note ---
Date of Service December 25, 2024 Assessment & Plan Admission and Anticipated Discharge Date Admission Date: December 23, 2024 Subjective abdomen soft and non tender incision is clean and dry no calf tenderness ambulating well alice drain removed from vagina vaginal bleeding scant hgb 12 Results & Data Vital Signs (Past 12 Hours) Vital Signs Temp Pulse Pulse Resp BP Pulse Ox O2 Del Method 12/25/24 03:40 128/71 12/25/24 03:00 36.6 C 74 18 150/91 H 98 Room Air 12/24/24 23:00 36.8 C 68 18 130/81 96 Room Air
--- NOTE | 2024-12-25 10:14 | Discharge Summary ---
Date of Service December 25, 2024 Admission HPI Per Admitting Provider Patient is a 44-year-old female status post status post tubal ligation. Being admitted for total abdominal hysterectomy due to pelvic pain and heavy vaginal bleeding. The day of admission the patient was brought to the OR. She was given spinal narcotics. She underwent total abdominal hysterectomy with suspension of the vaginal cuff and preservation of both ovaries. Surgery went well estimated blood loss was 40 mL. [place] drain was placed in the vaginal cuff. Postoperatively the patient did well. She remained afebrile. Bowel sounds returned within hours after surgery. At the time of discharge she was ambulating well eating well pain was well-controlled with a combination of pain medications. Herbert drain was removed from the vagina without difficulty. Her postoperative hemoglobin was 12. She was discharged with the usual postoperative instructions. Told to return for removal of deng or Discharge Data Procedures Performed Operation Date: 12/23/24 10:40 Actual Procedures p Total Abdominal Hysterectomy - Horacio Vogel MD
[2024-12-25 10:30] VITALS: BP 131/79; TEMP 98.4; O2SAT 100
[2024-12-25 10:34] VITALS: PULSE 69
== END 2024-12-25 11:30 | disposition home or self-care (01) | DRG 743 ==
LOC: ASU 09:10 → 4E1 09:10 → OBSVTOIN 14:32